=== PATIENT | female | born 1970 | race American Indian/Alaskan Native ===

== ENCOUNTER 2018-04-14 15:41 | Inpatient (IN) | payer MEDICARE, OTHER ==
[2018-04-14 15:46] VITALS: BMI 38.0
[2018-04-14] MEDS ORDERED: Iodixanol 320 mg/ml 150 ml Bottle IV ONE (15:53)
[2018-04-14] MEDS ORDERED: Sodium Chloride 0.9% 1,000 ML IV SCH (16:00)
[2018-04-14 16:18] LABS: BASO # 0.02 K/mm3 (0.0-2.0); BASO % 0.2 % (0.0-3.0); EOS % 0.4 % (1.5-5.0); GRAN # 7.08 (1.4-6.5); GRAN % 79.4 % (50.0-68.0); HEMOGLOBIN 10.9 g/dL (12.0-16.0); LYMPH # 1.6 (1.2-3.4); LYMPH % 17.4 % (22.0-35.0); MEAN CORPUSCULAR HEMOGLOBIN 26.6 pg (25.0-35.0); MEAN CORPUSCULAR HGB CONC 32.8 g/dl (31.0-37.0); MEAN PLATELET VOLUME 11.2 fl (7.0-11.0); MONO # 0.2 (0.1-0.6); MONO % 2.6 % (1.0-6.0); RBC 4.1 10^6/uL (3.5-6.1); RED CELL DISTRIBUTION WIDTH 15.1 % (11.5-14.5); WHITE BLOOD COUNT 8.9 10^3/uL (4.5-11.0)
[2018-04-14 16:20] LABS: INR 0.96; PARTIAL THROMBOPLASTIN TIME 29.8 Seconds (25.1-36.5); PROTHROMBIN TIME 10.9 SECONDS (9.4-12.5)
[2018-04-14 16:33] LABS: LDL CHOLESTEROL 147 mg/dL (0-129); TROPONIN I < 0.01 ng/mL
--- NOTE | 2018-04-14 16:34 | CT ---
Date of service: 04/14/2018 PROCEDURE: CT HEAD WITHOUT CONTRAST. HISTORY: Code Stroke COMPARISON: None available. TECHNIQUE: Axial computed tomography images were obtained through the head/brain without intravenous contrast. Radiation dose: Total exam DLP = 758.33 mGy-cm. This CT exam was performed using one or more of the following dose reduction techniques: Automated exposure control, adjustment of the mA and/or kV according to patient size, and/or use of iterative reconstruction technique. FINDINGS: HEMORRHAGE: No intracranial hemorrhage. BRAIN: No mass effect or edema. No atrophy or chronic microvascular ischemic changes. VENTRICLES: Unremarkable. No hydrocephalus. CALVARIUM: Unremarkable. PARANASAL SINUSES: Unremarkable as visualized. No significant inflammatory changes. MASTOID AIR CELLS: Unremarkable as visualized. No inflammatory changes. OTHER FINDINGS: Calcification and atrophy of the right globe IMPRESSION: No acute intracranial findings
[2018-04-14 16:44] LABS: ALB/GLOB RATIO 1.1 (1.1-1.8); ALBUMIN 4.2 g/dL (3.0-4.8); ALT/SGPT 19 U/L (7-56); AST/SGOT 20 U/L (14-36); BLOOD UREA NITROGEN 25 mg/dL (7-21); CALCIUM 9.8 mg/dL (8.4-10.5); GFR NON-AFRICAN AMERICAN 26; HDL CHOLESTEROL 36 mg/dL (29-60)
--- NOTE | 2018-04-14 16:45 | RAD ---
Date of service: 04/14/2018 HISTORY: Code Stroke COMPARISON: No prior. FINDINGS: LUNGS: There is a soft tissue density along the right side of the mediastinum. This is suspicious for underlying adenopathy or pulmonary mass. CT is suggested for further evaluation PLEURA: No significant pleural effusion identified, no pneumothorax apparent. CARDIOVASCULAR: No aortic atherosclerotic calcification present. Normal cardiac size. No pulmonary vascular congestion. OSSEOUS STRUCTURES: No significant abnormalities. VISUALIZED UPPER ABDOMEN: Normal. OTHER FINDINGS: None. IMPRESSION: Mass along the right side of the mediastinum.
[2018-04-14 17:18] LABS: VENOUS BLOOD GAS BASE EXCESS -10.4 mmol/L (0.0-2.0); VENOUS BLOOD GAS PO2 106 mm/Hg (30-55); VENOUS BLOOD PH 7.19 (7.32-7.43)
--- NOTE | 2018-04-14 17:51 | ED PDOC ---
Arrival/HPI - General Chief Complaint: Weakness/Neurological Deficit Time Seen by Provider: 04/14/18 15:46 Historian: Patient - Critical Care Critical Care Minutes: 60 minutes - History of Present Illness Narrative History of Present Illness (Text): 04/14/18 15:46 47 year old female, with past medical history of TIA and diabetes, presents to the Emergency department accompanied by for evaluation of a transient episode of slurred speech and right fist being clenched prior to arrival. Patient states the episode lasted for a few minutes and spontaneously resolved. Upon arrival to the ED, patient reports resolved symptoms but requests to be medically evaluated secondary to history of TIA. Patient denies any other associated somatic complaints. Patient denies any fevers, chills, headache, dizziness, chest pain, shortness of breath, dyspnea on exertion, cough, abdominal pain, nausea, vomiting, diarrhea, back pain, neck pain, or any other complaints. Patient reports non-compliance with her insulin secondary to financial issues. 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) - Renal Hx Renal Disorder: Yes Other/Comment: Renal transplant - Endocrine/Metabolic Hx Diabetes Mellitus Type 2: Yes - Psychiatric Hx Substance Use: No - Surgical History Hx Kidney Transplant: Yes (R side) - Anesthesia Hx Anesthesia: Yes Hx Anesthesia Reactions: No Hx Malignant Hyperthermia: No Family/Social History - Physician Review Nursing Documentation Reviewed: Yes Family/Social History: Unknown Family HX Smoking Status: Never Smoked Hx Alcohol Use: No Hx Substance Use: No Allergies/Home Meds Allergies/Adverse Reactions: Allergies latex Allergy (Verified 04/14/18 15:45) RASH Review of Systems - Physician Review All systems were reviewed & negative as marked: Yes - Review of Systems Constitutional: absent: Fevers Respiratory: absent: SOB, Cough Cardiovascular: absent: Chest Pain Gastrointestinal: absent: Abdominal Pain, Diarrhea, Nausea, Vomiting Genitourinary Female: absent: Dysuria, Urine Output Changes Musculoskeletal: absent: Back Pain, Neck Pain Skin: absent: Rash Neurological: absent: Headache, Dizziness Physical Exam Vital Signs Reviewed: Yes Vital Signs Temp Pulse Resp BP Pulse Ox 04/14/18 15:45 98.8 F 101 H 18 157/84 H 98 Temperature: Afebrile Blood Pressure: Hypertensive Pulse: Regular Respiratory Rate: Normal Appearance: Positive for: Well-Appearing, Non-Toxic, Comfortable Pain Distress: None Mental Status: Positive for: Alert and Oriented X 3 - Systems Exam Head: Present: Atraumatic, Normocephalic Pupils: Present: Other (Right eye opaque) Extroacular Muscles: Present: EOMI Conjunctiva: Present: Normal Mouth: Present: Moist Mucous Membranes Neck: Present: Normal Range of Motion Respiratory/Chest: Present: Clear to Auscultation, Good Air Exchange. No: Respiratory Distress, Accessory Muscle Use Cardiovascular: Present: Regular Rate and Rhythm, Normal S1, S2. No: Murmurs Abdomen: No: Tenderness, Distention, Peritoneal Signs Back: Present: Normal Inspection Upper Extremity: Present: Normal Inspection. No: Cyanosis, Edema Lower Extremity: Present: Normal Inspection. No: Edema Neurological: Present: GCS=15, CN II-XII Intact, Speech Normal, Motor Func Grossly Intact, Normal Sensory Function Skin: Present: Warm, Dry, Normal Color. No: Rashes Psychiatric: Present: Alert, Oriented x 3, Normal Insight, Normal Concentration Medical Decision Making ED Course and Treatment: 04/14/18 15:46 Impression: 47 year old female presents to the Emergency department complaining of slurred speech. Plan: -- Type and Screen -- VBG -- CT Chest -- CT of Head -- EKG -- Labs -- Chest X-ray -- IV Fluids -- Reassess and disposition Prior Visits: Notes and results from previous visits were reviewed. Progress Notes: 04/14/18 15:44 CODE STROKE ACTIVATED. 04/14/18 15:55 CT of head reviewed by radiologist, shows: No acute intracranial findings. Chest X-ray reviewed by radiologist, shows: Mass along the right side of the mediastinum. 04/14/18 15:55 Due to well low NIH score and history of renal transplant, CTA was not held. Pat ient was found to be in DKA. Patient accepted to ICU. Spoke to Dr. Jeffery, who requests MRI in morning, and believes patient is not a tPA candidate. - Critical Care Critical Care Minutes: 60 minutes - Lab Interpretations Lab Results: 04/14/18 16:01 04/14/18 16:01 Lab Results 04/14/18 16:56: pO2 106 H, VBG pH 7.19 L*, VBG pCO2 46.0, VBG HCO3 17.6 L, VBG Total CO2 19.0 L, VBG O2 Sat (Calc) 98.8 H, VBG Base Excess -10.4 L, VBG Potassium 3.4 L, Glucose 704 H*, Lactate 5.9 H*, FiO2 21.0, Sodium 132.0, Chloride 95.0 L, Venous Blood Potassium 3.4 L 04/14/18 16:01: Sodium 130 L, Potassium 3.3 L, Chloride 94 L, Carbon Dioxide 18 L, Anion Gap 21 H, BUN 25 H, Creatinine 2.0 H, Est GFR ( Amer) 32, Est GFR (Non-Af Amer) 26, Random Glucose 847 H*, Calcium 9.8, Total Bilirubin 0.4, AST 20, ALT 19, Alkaline Phosphatase 182 H, Troponin I < 0.01, Total Protein 8.0, Albumin 4.2, Globulin 3.7, Albumin/Globulin Ratio 1.1, Triglycerides 363 H, Cholesterol 248 H, LDL Cholesterol Direct 147 H, HDL Cholesterol 36, B- Hydroxybutyrate Pending 04/14/18 16:01: PT 10.9, INR 0.96, APTT 29.8 04/14/18 16:01: WBC 8.9, RBC 4.10, Hgb 10.9 L, Hct 33.2 L, MCV 81.0, MCH 26.6, MCHC 32.8, RDW 15.1 H, Plt Count 271, MPV 11.2 H, Gran % 79.4 H, Lymph % (Auto) 17.4 L, [place] % (Auto) 2.6, Eos % (Auto) 0.4 L, Baso % (Auto) 0.2, Gran # 7.08 H, Lymph # (Auto) 1.6, [place] # (Auto) 0.2, Eos # (Auto) 0.0, Baso # (Auto) 0.02 04/14/18 15:46: POC Glucose (mg/dL) > 500 H* - RAD Interpretation Radiology Orders: 04/14/18 15:46 HEAD W/O (CODE STROKE) [CT] Stat CHEST PORTABLE [RAD] Stat 04/14/18 16:47 CHEST W/O CONTRAST [CT] Stat - Medication Orders Current Medication Orders: Sodium Chloride (Sodium Chloride 0.9%) 1,000 mls @ 100 mls/hr IV .Q10H DANTE Last Admin: 04/14/18 16:57 Dose: 100 mls/hr eMAR Start Stop Document 04/14/18 16:57 EQ (Rec: 04/14/18 16:57 EQ [id number]) Intravenous Solution Start Date 04/14/18 Start Time 16:57 NIHSS Scale ([place]) Time Performed: 15:40 - How Severe is the Stoke Baseline Level of Consciousness: 0=Alert LOC to Questions: 0=Both comments correct LOC to commands: 0=Obeys both correctly Best Gaze: 0=Normal Visual: 0=No visual loss Facial: 0=Normal Motor Arm - Left: 0=No drift Motor Arm - Right: 0=No drift Motor Leg - Left: 0=No drift Motor Leg - Right: 0=No drift Limb Ataxia: 0=Absent Sensory: 0=Normal Best Language: 0=No aphasia Dysarthia: 0=Normal articulation Extinction & Inattention (Neglect): 0=Normal, no object Score: 0 Risk Level: No Stroke Risk rTPA Inclusion/Exclusion - Refusal of Treatment Patient Refused Treatment: No - Inclusion Criteria for Altepase Patient is 18 years or Older: Yes The Clinical Diagnosis of Ischemic Stroke That is Causing a Potentially Disabling Neurological Deficit: No Time of Onset is Well Established to be Less Than 270 Minute Before Treatment Would Begin: Yes Risk/Benefit Discussed With Patient/Family Member Present: No - Scribe Statement The provider has reviewed the documentation as recorded by the Scribsamina Horton. All medical record entries made by the Scribe were at my direction and personally dictated by me. I have reviewed the chart and agree that the record accurately reflects my personal performance of the history, physical exam, medical decision making, and the department course for this patient. I have also personally directed, reviewed, and agree with the discharge instructions and disposition. Disposition/Present on Arrival - Present on Arrival Any Indicators Present on Arrival: Yes History of DVT/PE: No History of Uncontrolled Diabetes: No Urinary Catheter: No History of Decub. Ulcer: No History Surgical Site Infection Following: None - Disposition Have Diagnosis and Disposition been Completed?: Yes Diagnosis: DKA (diabetic ketoacidoses), Weakness Disposition: HOSPITALIZED Disposition Time: 17:30 Condition: GUARDED Discharge Instructions (ExitCare): Weakness (ED) Forms: [employer] [facility] (Cro[place]ian)
[2018-04-14] MEDS ORDERED: Lactated Ringer's 1,000 ML IV SCH (18:00)
[2018-04-14] MEDS ORDERED: Insulin Regular 100 UNITS in Sodium Chloride 0.9% 99 ML IV PRN ×2 (18:03→18:15)
[2018-04-14] MEDS ORDERED: Sodium Chloride 0.9% 1,000 ML IV STA (18:15)
--- NOTE | 2018-04-14 18:35 | CARD ---
APPROVED REPORT Date of service: 04/14/2018 EKG Measurement Heart [id number] <Conclusion> Normal sinus rhythm Left ventricular hypertrophy Abnormal ECG
[2018-04-14] MEDS: Lactated Ringer's 1,000 ML IV SCH (19:01)
[2018-04-14 19:40] LABS: URINE APPEARANCE CLEAR (CLEAR); URINE BILIRUBIN NEGATIVE (NEGATIVE); URINE BLOOD SMALL (NEGATIVE); URINE COLOR LIGHT YELLOW (YELLOW); URINE GLUCOSE (UA) >=1000 mg/dL (NEGATIVE); URINE LEUKOCYTE ESTERASE TRACE Leu/uL (NEGATIVE); URINE PROTEIN 100 mg/dL (<30 mg/dL); URINE UROBILINOGEN 0.2 E.U./dL (<1 E.U./dL)
[2018-04-14 19:41] LABS: CALCIUM 9.8 mg/dL (8.4-10.5)
[2018-04-14 19:51] LABS: URINE BACTERIA TRACE (NEG); URINE RBC 0 - 2 /hpf (0-2)
--- NOTE | 2018-04-14 21:36 | CP.PCM.HP ---
<Augustine Nagel - Last Filed: 04/15/18 06:00> History of Present Illness - History of Present Illness History of Present Illness: History and Physical for hospitalist attending Dr. Elza Nagel PGY2 Chief Complaint: Slurred speech HPI: Patient is a 47 year old female with a past medical history of right kidney transplant, transient ischemic attack, IDDM (diagnosed in [facility]), diabetic retinopathy, dyslipidemia, hypertension, asthma who initially presented with complaints of slurred speech which occurred right before coming to the emergency department. Patient states she woke up feeling fine however had several tasks through the day which caused her to not eat much. States that through the day she was feeling very thirsty and kept drinking water. Around 3 p.m. as per patient, she was speaking to her and noticed she was experiencing difficulties forming her words. With her previous history of TIA patient was nervous and wanted to be evaluated prompting her to come to the ED. Patient was found to be in DKA. She denies any recent infection however states that she has not been able to use her insulin in the past week due to financial issues and not being able to afford it. Upon evaluating patient in the Ed all symptoms have resolved, patient is alert awake full of energy and asking for food. Patient denies current infection, fevers, chills, cough, abdominal pain, nausea, vomiting, diarrhea, chest pain, shortness of breath, dysuria. Labs: WBC 8.9, H/H 10.9/33.2, MCV 81, RDW 15.1, Gran% 79.4, INR 0.96, Initial anion gap: 18, Potassium 3.3, random glucose 847, troponin <0.01, creatinine 2.0 (patient's baseline as per patient is 1.8-2.0) VBG: pH 7.19 UA: trace leukocyte esterase, WBC 2-5 CT head: no abnormalities Chest X-ray: mass along right side of mediastinum. EKG: NSR, LVH PMD: Dr. Borden ([place], [place]) Benefit Authorizer: Ellie Stephen Glove Turner And Former: Dr. Bobby [facility] (all in [place], [place] patient goes to various pharmacies with [facility] whichever is cheaper) Family Hx: Significant for DM Surgical Hx: Right kidney transplant in 2008, 7 eye surgeries, Port and fistula for dialysis patient had for 10 months prior to transplant, myomectomy, lumpectomy (benign mass removed from left breast) Social History: 3 year history of cigarette smoking, started in 1998, quit in 2001. Denies alcohol or drug use. Present on Admission - Present on Admission Any Indicators Present on Admission: No Review of Systems - Constitutional Constitutional: absent: Anorexia, Chills, Fever, Lethargy - EENT Ears: absent: Dizziness Nose/Mouth/Throat: absent: Sore Throat - Cardiovascular Cardiovascular: absent: Chest Pain, Dyspnea - Respiratory Respiratory: absent: Cough - Gastrointestinal Gastrointestinal: absent: Diarrhea, Nausea, Vomiting - Genitourinary Genitourinary: absent: Dysuria - Neurological Neurological: absent: Dizziness, Numbness - Endocrine Endocrine: absent: Fatigue Past Patient History - Infectious Disease Hx of Infectious Diseases: None - Past Social History Smoking Status: Never Smoked - PULMONARY Hx Asthma: Yes - NEUROLOGICAL Hx Transient Ischemic Attacks (TIA): Yes - HEENT Hx Blind: Yes (R eye legalky blind) - RENAL Hx Chronic Kidney Disease: Yes Other/Comment: Renal transplant - ENDOCRINE/METABOLIC Hx Diabetes Mellitus Type 2: Yes - PSYCHIATRIC Hx Substance Use: No - SURGICAL HISTORY Hx Kidney Transplant: Yes (R side) - ANESTHESIA Hx Anesthesia: Yes Hx Anesthesia Reactions: No Hx Malignant Hyperthermia: No Meds Allergies/Adverse Reactions: Allergies Allergy/AdvReac Type Severity Reaction Status Date / Time latex Allergy RASH Verified 04/14/18 15:45 Physical Exam - Constitutional Appears: Non-toxic, No Acute Distress - Head Exam Head Exam: ATRAUMATIC, NORMAL INSPECTION, NORMOCEPHALIC - Eye Exam Eye Exam: absent: Normal appearance (right eye) - ENT Exam ENT Exam: Mucous Membranes Dry - Respiratory Exam Respiratory Exam: Clear to Auscultation Bilateral, NORMAL BREATHING PATTERN. absent: Rhonchi, Wheezes - Cardiovascular Exam Cardiovascular Exam: REGULAR RHYTHM, +S1, +S2 - GI/Abdominal Exam GI & Abdominal Exam: Normal Bowel Sounds, Soft. absent: Tenderness Additional comments: surgical scar from kidney transplant - Extremities Exam Extremities exam: Positive for: pedal edema (trace) - Back Exam Back exam: NORMAL INSPECTION - Neurological Exam Neurological exam: Alert, CN II-XII Intact, Oriented x3 - Psychiatric Exam Psychiatric exam: Normal Affect, Normal Mood - Skin Skin Exam: Normal Color, Warm Results - Vital Signs Recent Vital Signs: Last Vital Signs Temp 98.8 F 04/14/18 15:45 Pulse 101 H 04/14/18 15:45 Resp 18 04/14/18 15:45 BP 157/84 H 04/14/18 15:45 Pulse Ox 98 04/14/18 15:45 - Labs Result Diagrams: 04/14/18 16:01 04/15/18 02:07 Labs: Laboratory Results - last 24 hr 04/14/18 04/14/18 04/14/18 15:46 16:01 16:01 WBC 8.9 RBC 4.10 Hgb 10.9 L Hct 33.2 L MCV 81.0 MCH 26.6 MCHC 32.8 RDW 15.1 H Plt Count 271 MPV 11.2 H Gran % 79.4 H Lymph % (Auto) 17.4 L Gray % (Auto) 2.6 Eos % (Auto) 0.4 L Baso % (Auto) 0.2 Gran # 7.08 H Lymph # (Auto) 1.6 Gray # (Auto) 0.2 Eos # (Auto) 0.0 Baso # (Auto) 0.02 PT 10.9 INR 0.96 APTT 29.8 pO2 VBG pH VBG pCO2 VBG HCO3 VBG Total CO2 VBG O2 Sat (Calc) VBG Base Excess VBG Potassium Glucose Lactate FiO2 Sodium Potassium Chloride Carbon Dioxide Anion Gap BUN Creatinine Est GFR ( Amer) Est GFR (Non-Af Amer) POC Glucose (mg/dL) > 500 H* Random Glucose Calcium Phosphorus Magnesium Total Bilirubin AST ALT Alkaline Phosphatase Troponin I Total Protein Albumin Globulin Albumin/Globulin Ratio Triglycerides Cholesterol LDL Cholesterol Direct HDL Cholesterol Venous Blood Potassium Urine Color Urine Appearance Urine pH Ur Specific Jackman Urine Protein Urine Glucose (UA) Urine Ketones Urine Blood Urine Nitrate Urine Bilirubin Urine Urobilinogen Ur Leukocyte Esterase Urine RBC Urine WBC Ur Epithelial Cells Urine Bacteria 04/14/18 04/14/18 04/14/18 16:01 16:56 18:27 WBC RBC Hgb Hct MCV MCH MCHC RDW Plt Count MPV Gran % Lymph % (Auto) Gray % (Auto) Eos % (Auto) Baso % (Auto) Gran # Lymph # (Auto) Gray # (Auto) Eos # (Auto) Baso # (Auto) PT INR APTT pO2 106 H VBG pH 7.19 L* VBG pCO2 46.0 VBG HCO3 17.6 L VBG Total CO2 19.0 L VBG O2 Sat (Calc) 98.8 H VBG Base Excess -10.4 L VBG Potassium 3.4 L Glucose 704 H* Lactate 5.9 H* FiO2 21.0 Sodium 130 L 132.0 Potassium 3.3 L Chloride 94 L 95.0 L Carbon Dioxide 18 L Anion Gap 21 H BUN 25 H Creatinine 2.0 H Est GFR ( Amer) 32 Est GFR (Non-Af Amer) 26 POC Glucose (mg/dL) Random Glucose 847 H* Calcium 9.8 Phosphorus Magnesium Total Bilirubin 0.4 AST 20 ALT 19 Alkaline Phosphatase 182 H Troponin I < 0.01 Total Protein 8.0 Albumin 4.2 Globulin 3.7 Albumin/Globulin Ratio 1.1 Triglycerides 363 H Cholesterol 248 H LDL Cholesterol Direct 147 H HDL Cholesterol 36 Venous Blood Potassium 3.4 L Urine Color Light yellow Urine Appearance Clear Urine pH 6.0 Ur Specific Jackman 1.010 Urine Protein 100 H Urine Glucose (UA) >=1000 Urine Ketones Negative Urine Blood Small H Urine Nitrate Negative Urine Bilirubin Negative Urine Urobilinogen 0.2 Ur Leukocyte Esterase Trace H Urine RBC 0 - 2 Urine WBC 2 - 5 Ur Epithelial Cells None Urine Bacteria Trace 04/14/18 04/14/18 18:51 19:22 WBC RBC Hgb Hct MCV MCH MCHC RDW Plt Count MPV Gran % Lymph % (Auto) Gray % (Auto) Eos % (Auto) Baso % (Auto) Gran # Lymph # (Auto) Gray # (Auto) Eos # (Auto) Baso # (Auto) PT INR APTT pO2 VBG pH VBG pCO2 VBG HCO3 VBG Total CO2 VBG O2 Sat (Calc) VBG Base Excess VBG Potassium Glucose Lactate FiO2 Sodium 136 Potassium 3.7 Chloride 103 Carbon Dioxide 21 Anion Gap 16 BUN 24 H Creatinine 1.9 H Est GFR ( Amer) 34 Est GFR (Non-Af Amer) 28 POC Glucose (mg/dL) 299 H Random Glucose 300 H Calcium 9.8 Phosphorus 2.8 Magnesium 1.9 Total Bilirubin AST ALT Alkaline Phosphatase Troponin I Total Protein Albumin Globulin Albumin/Globulin Ratio Triglycerides Cholesterol LDL Cholesterol Direct HDL Cholesterol Venous Blood Potassium Urine Color Urine Appearance Urine pH Ur Specific Jackman Urine Protein Urine Glucose (UA) Urine Ketones Urine Blood Urine Nitrate Urine Bilirubin Urine Urobilinogen Ur Leukocyte Esterase Urine RBC Urine WBC Ur Epithelial Cells Urine Bacteria Assessment & Plan - Assessment and Plan (Free Text) Assessment: Patient is a 47 year old female with a past medical history of right kidney transplant, transient ischemic attack, IDDM, diabetic retinopathy, dyslipidemia, hypertension, asthma who initially presented with complaints of slurred speech found to be in DKA. Plan: DKA -Patient received 4 L fluids -Insulin drip -Potassium chloride 20 mEQ -I&O -Anion gap now closed at 12; will start patient on ISS-medium and Renal low carb diet -Patient's home insulin regimen: Lantus 70 U daily, Novolog 40 units AC -Finger sticks q4h -Repeat ABG -HgA1C -family life educator Anemia -Peripheral smear -Iron&TIBC, ferritin, retic count -Folate, B12 CKD -Nephrology on consult -Cr is baseline -I&O History of Asthma -Duonebs PRN History of R kidney transplant -Continue tacrolimus and mycophenolate History of Hypertension -Continue losartan 100 mg, norvasc 5 mg, coreg 20 mg History of Dyslipidemia -Get repeat fasting lipid panel in morning -Continue statin Case discussed and reviewed with Dr. Bertrand DVT/GI ppx: Lovenox/Protonix <Andrea Bertrand - Last Filed: 04/15/18 06:37> Results - Vital Signs Recent Vital Signs: Last Vital Signs Temp 98.6 F 04/14/18 20:00 Pulse 75 04/15/18 06:00 Resp 25 H 04/15/18 04:00 BP 157/75 H 04/15/18 04:00 Pulse Ox 93 L 04/15/18 04:00 - Labs Result Diagrams: 04/14/18 16:01 04/15/18 02:07 Labs: Laboratory Results - last 24 hr 04/14/18 04/14/18 04/14/18 15:46 16:01 16:01 WBC 8.9 RBC 4.10 Hgb 10.9 L Hct 33.2 L MCV 81.0 MCH 26.6 MCHC 32.8 RDW 15.1 H Plt Count 271 MPV 11.2 H Gran % 79.4 H Lymph % (Auto) 17.4 L Gray % (Auto) 2.6 Eos % (Auto) 0.4 L Baso % (Auto) 0.2 Gran # 7.08 H Lymph # (Auto) 1.6 Gray # (Auto) 0.2 Eos # (Auto) 0.0 Baso # (Auto) 0.02 Retic Count PT 10.9 INR 0.96 APTT 29.8 pCO2 pO2 HCO3 ABG pH ABG Total CO2 ABG O2 Saturation ABG O2 Content ABG Base Excess ABG Hemoglobin ABG Carboxyhemoglobin POC ABG HHb (Measured) ABG Methemoglobin ABG O2 Capacity VBG pH VBG pCO2 VBG HCO3 VBG Total CO2 VBG O2 Sat (Calc) VBG Base Excess VBG Potassium Hgb O2 Saturation Glucose Lactate FiO2 Sodium Potassium Chloride Carbon Dioxide Anion Gap BUN Creatinine Est GFR ( Amer) Est GFR (Non-Af Amer) POC Glucose (mg/dL) > 500 H* Random Glucose Calcium Phosphorus Magnesium Iron TIBC % Saturation Total Bilirubin AST ALT Alkaline Phosphatase Troponin I Total Protein Albumin Globulin Albumin/Globulin Ratio Triglycerides Cholesterol LDL Cholesterol Direct HDL Cholesterol Venous Blood Potassium Urine Color Urine Appearance Urine pH Ur Specific Jackman Urine Protein Urine Glucose (UA) Urine Ketones Urine Blood Urine Nitrate Urine Bilirubin Urine Urobilinogen Ur Leukocyte Esterase Urine RBC Urine WBC Ur Epithelial Cells Urine Bacteria 04/14/18 04/14/18 04/14/18 16:01 16:56 18:27 WBC RBC Hgb Hct MCV MCH MCHC RDW Plt Count MPV Gran % Lymph % (Auto) Gray % (Auto) Eos % (Auto) Baso % (Auto) Gran # Lymph # (Auto) Gray # (Auto) Eos # (Auto) Baso # (Auto) Retic Count PT INR APTT pCO2 pO2 106 H HCO3 ABG pH ABG Total CO2 ABG O2 Saturation ABG O2 Content ABG Base Excess ABG Hemoglobin ABG Carboxyhemoglobin POC ABG HHb (Measured) ABG Methemoglobin ABG O2 Capacity VBG pH 7.19 L* VBG pCO2 46.0 VBG HCO3 17.6 L VBG Total CO2 19.0 L VBG O2 Sat (Calc) 98.8 H VBG Base Excess -10.4 L VBG Potassium 3.4 L Hgb O2 Saturation Glucose 704 H* Lactate 5.9 H* FiO2 21.0 Sodium 130 L 132.0 Potassium 3.3 L Chloride 94 L 95.0 L Carbon Dioxide 18 L Anion Gap 21 H BUN 25 H Creatinine 2.0 H Est GFR ( Amer) 32 Est GFR (Non-Af Amer) 26 POC Glucose (mg/dL) Random Glucose 847 H* Calcium 9.8 Phosphorus Magnesium Iron TIBC % Saturation Total Bilirubin 0.4 AST 20 ALT 19 Alkaline Phosphatase 182 H Troponin I < 0.01 Total Protein 8.0 Albumin 4.2 Globulin 3.7 Albumin/Globulin Ratio 1.1 Triglycerides 363 H Cholesterol 248 H LDL Cholesterol Direct 147 H HDL Cholesterol 36 Venous Blood Potassium 3.4 L Urine Color Light yellow Urine Appearance Clear Urine pH 6.0 Ur Specific Jackman 1.010 Urine Protein 100 H Urine Glucose (UA) >=1000 Urine Ketones Negative Urine Blood Small H Urine Nitrate Negative Urine Bilirubin Negative Urine Urobilinogen 0.2 Ur Leukocyte Esterase Trace H Urine RBC 0 - 2 Urine WBC 2 - 5 Ur Epithelial Cells None Urine Bacteria Trace 04/14/18 04/14/18 04/14/18 18:51 19:22 20:28 WBC RBC Hgb Hct MCV MCH MCHC RDW Plt Count MPV Gran % Lymph % (Auto) Gray % (Auto) Eos % (Auto) Baso % (Auto) Gran # Lymph # (Auto) Gray # (Auto) Eos # (Auto) Baso # (Auto) Retic Count PT INR APTT pCO2 pO2 HCO3 ABG pH ABG Total CO2 ABG O2 Saturation ABG O2 Content ABG Base Excess ABG Hemoglobin ABG Carboxyhemoglobin POC ABG HHb (Measured) ABG Methemoglobin ABG O2 Capacity VBG pH VBG pCO2 VBG HCO3 VBG Total CO2 VBG O2 Sat (Calc) VBG Base Excess VBG Potassium Hgb O2 Saturation Glucose Lactate FiO2 Sodium 136 Potassium 3.7 Chloride 103 Carbon Dioxide 21 Anion Gap 16 BUN 24 H Creatinine 1.9 H Est GFR ( Amer) 34 Est GFR (Non-Af Amer) 28 POC Glucose (mg/dL) 299 H 215 H Random Glucose 300 H Calcium 9.8 Phosphorus 2.8 Magnesium 1.9 Iron TIBC % Saturation Total Bilirubin AST ALT Alkaline Phosphatase Troponin I Total Protein Albumin Globulin Albumin/Globulin Ratio Triglycerides Cholesterol LDL Cholesterol Direct HDL Cholesterol Venous Blood Potassium Urine Color Urine Appearance Urine pH Ur Specific Jackman Urine Protein Urine Glucose (UA) Urine Ketones Urine Blood Urine Nitrate Urine Bilirubin Urine Urobilinogen Ur Leukocyte Esterase Urine RBC Urine WBC Ur Epithelial Cells Urine Bacteria 1104/14/18 04/14/18 21:56 22:10 22:10 WBC RBC Hgb Hct MCV MCH MCHC RDW Plt Count MPV Gran % Lymph % (Auto) Gray % (Auto) Eos % (Auto) Baso % (Auto) Gran # Lymph # (Auto) Gray # (Auto) Eos # (Auto) Baso # (Auto) Retic Count PT INR APTT pCO2 pO2 33 HCO3 ABG pH ABG Total CO2 ABG O2 Saturation ABG O2 Content ABG Base Excess ABG Hemoglobin ABG Carboxyhemoglobin POC ABG HHb (Measured) ABG Methemoglobin ABG O2 Capacity VBG pH 7.34 VBG pCO2 37.0 L VBG HCO3 20.0 L VBG Total CO2 21.1 L VBG O2 Sat (Calc) 72.8 H VBG Base Excess -5.2 L VBG Potassium 4.0 Hgb O2 Saturation Glucose 261 H Lactate 3.7 H FiO2 21.0 Sodium 136.0 133 Potassium 4.9 Chloride 104.0 106 Carbon Dioxide 19 L Anion Gap 13 BUN 19 Creatinine 1.5 H Est GFR ( Amer) 45 Est GFR (Non-Af Amer) 37 POC Glucose (mg/dL) Random Glucose 221 H Calcium 8.7 Phosphorus Magnesium Iron 69 TIBC 208 L % Saturation 33 Total Bilirubin AST ALT Alkaline Phosphatase Troponin I < 0.01 Total Protein Albumin Globulin Albumin/Globulin Ratio Triglycerides Cholesterol LDL Cholesterol Direct HDL Cholesterol Venous Blood Potassium 4.0 Urine Color Urine Appearance Urine pH Ur Specific Jackman Urine Protein Urine Glucose (UA) Urine Ketones Urine Blood Urine Nitrate Urine Bilirubin Urine Urobilinogen Ur Leukocyte Esterase Urine RBC Urine WBC Ur Epithelial Cells Urine Bacteria 04/14/18 04/15/18 04/15/18 22:10 00:16 01:35 WBC RBC Hgb Hct MCV MCH MCHC RDW Plt Count MPV Gran % Lymph % (Auto) Gray % (Auto) Eos % (Auto) Baso % (Auto) Gran # Lymph # (Auto) Gray # (Auto) Eos # (Auto) Baso # (Auto) Retic Count 1.87 H PT INR APTT pCO2 33 L pO2 87.0 HCO3 19.1 L ABG pH 7.37 ABG Total CO2 20.1 L ABG O2 Saturation 99.3 H ABG O2 Content 12.8 L ABG Base Excess -5.5 L ABG Hemoglobin 9.4 L ABG Carboxyhemoglobin 2.2 H POC ABG HHb (Measured) 0.7 ABG Methemoglobin 1.2 ABG O2 Capacity 12.9 L VBG pH VBG pCO2 VBG HCO3 VBG Total CO2 VBG O2 Sat (Calc) VBG Base Excess VBG Potassium Hgb O2 Saturation 95.9 Glucose Lactate FiO2 21.0 Sodium Potassium Chloride Carbon Dioxide Anion Gap BUN Creatinine Est GFR ( Amer) Est GFR (Non-Af Amer) POC Glucose (mg/dL) 359 H Random Glucose Calcium Phosphorus Magnesium Iron TIBC % Saturation Total Bilirubin AST ALT Alkaline Phosphatase Troponin I Total Protein Albumin Globulin Albumin/Globulin Ratio Triglycerides Cholesterol LDL Cholesterol Direct HDL Cholesterol Venous Blood Potassium Urine Color Urine Appearance Urine pH Ur Specific Jackman Urine Protein Urine Glucose (UA) Urine Ketones Urine Blood Urine Nitrate Urine Bilirubin Urine Urobilinogen Ur Leukocyte Esterase Urine RBC Urine WBC Ur Epithelial Cells Urine Bacteria 04/15/18 04/15/18 04/15/18 02:07 02:07 04:07 WBC RBC Hgb Hct MCV MCH MCHC RDW Plt Count MPV Gran % Lymph % (Auto) Gray % (Auto) Eos % (Auto) Baso % (Auto) Gran # Lymph # (Auto) Gray # (Auto) Eos # (Auto) Baso # (Auto) Retic Count PT INR APTT pCO2 pO2 89 H HCO3 ABG pH ABG Total CO2 ABG O2 Saturation ABG O2 Content ABG Base Excess ABG Hemoglobin ABG Carboxyhemoglobin POC ABG HHb (Measured) ABG Methemoglobin ABG O2 Capacity VBG pH 7.32 VBG pCO2 35.0 L VBG HCO3 18.0 L VBG Total CO2 19.1 L VBG O2 Sat (Calc) 99.0 H VBG Base Excess -7.3 L VBG Potassium 3.9 Hgb O2 Saturation Glucose 399 H Lactate 2.9 H FiO2 21.0 Sodium 133 134.0 Potassium 4.0 Chloride 108 H 105.0 Carbon Dioxide 17 L Anion Gap 12 BUN 19 Creatinine 1.5 H Est GFR ( Amer) 45 Est GFR (Non-Af Amer) 37 POC Glucose (mg/dL) 335 H Random Glucose 343 H* D Calcium 8.4 Phosphorus Magnesium Iron TIBC % Saturation Total Bilirubin AST ALT Alkaline Phosphatase Troponin I Total Protein Albumin Globulin Albumin/Globulin Ratio Triglycerides Cholesterol LDL Cholesterol Direct HDL Cholesterol Venous Blood Potassium 3.9 Urine Color Urine Appearance Urine pH Ur Specific Jackman Urine Protein Urine Glucose (UA) Urine Ketones Urine Blood Urine Nitrate Urine Bilirubin Urine Urobilinogen Ur Leukocyte Esterase Urine RBC Urine WBC Ur Epithelial Cells Urine Bacteria Attending/Attestation - Attestation I have personally seen and examined this patient.: Yes I have fully participated in the care of the patient.: Yes I have reviewed all pertinent clinical information: Yes
[2018-04-14] MEDS ORDERED: Insulin Reg-MEDIUM-Coverage SC SCH (22:00)
[2018-04-14 22:17] LABS: VENOUS BLOOD GAS BASE EXCESS -5.2 mmol/L (0.0-2.0); VENOUS BLOOD GAS PO2 33 mm/Hg (30-55); VENOUS BLOOD PH 7.34 (7.32-7.43)
[2018-04-14 22:39] LABS: TROPONIN I < 0.01 ng/mL
[2018-04-14 22:41] LABS: BLOOD UREA NITROGEN 19 mg/dL (7-21); CALCIUM 8.7 mg/dL (8.4-10.5); GFR NON-AFRICAN AMERICAN 37
[2018-04-14 22:52] LABS: IRON 69 ug/dL (45-180)
[2018-04-14 23:01] LABS: % IRON SATURATION 33 % (20-55); TOTAL IRON BINDING CAPACITY 208 ug/dL (265-497)
[2018-04-15] MEDS: Insulin Reg-MEDIUM-Coverage SC SCH ×3 (00:54→08:08)
[2018-04-15] MEDS: Lactated Ringer's 1,000 ML IV SCH ×4 (00:55→17:10)
--- NOTE | 2018-04-15 01:22 | CON ---
DATE OF CONSULTATION: 04/14/2018 HISTORY OF PRESENT ILLNESS: This is a 47-year-old lady with a history of renal transplant 10 years ago from relative (brother), who has been managed by Nephrology Service at [facility] (Dr. Stephen and Dr. Sherman), who however recently moved to [place] and switched her primary medical doctor as well. However, as Nephrology Service is affiliated with [facility] as well, the Nephrology Service continued to follow her as well. The patient presented to [facility] ER with an episode of slurred speech and right face being clenched prior to arrival. Upon further workup in the ER, she was found to have highly elevated glucose, severe metabolic acidosis and anion gap present. Diagnosis of DKA was made and ICU was called for further management and monitoring. The patient denies any other associated somatic complaints. She denies fevers, chills, headache, dizziness, chest pain, shortness of breath, dyspnea on exertion, cough, abdominal pain, nausea, vomiting, diarrhea, back pain, neck pain or other complaints. PAST MEDICAL HISTORY: Diabetes, TIA, status post renal transplant. FAMILY HISTORY: Noncontributory. SOCIAL HISTORY: No alcohol or illicit drug abuse. No tobacco smoking. REVIEW OF SYSTEMS: Review of 12-organ system other than mentioned in the history of present illness is negative. MEDICATIONS AT HOME: Not available at present time. Dr. Stephen was called and we will adjust or start her immunosuppressant. PHYSICAL EXAMINATION: VITAL SIGNS: Blood pressure 157/84, heart rate 101, temperature 98.8, oxygen saturation 98% on room air, and respiratory rate 18. ENT: Head and neck atraumatic. LUNGS: Clear to auscultation bilaterally. HEART: Regular rate and rhythm. S1 and S2 normal. ABDOMEN: Soft, nontender, nondistended. MUSCULOSKELETAL: No C/C/E. NEURO: The patient moves all extremities spontaneously. SKIN: Moist. PSYCH: The patient is alert, awake and oriented x3. Not in respiratory or otherwise distress. LABORATORY DATA: WBC 8.9, hemoglobin 10.9, platelet count 271. Sodium 130, potassium 3.3 (supplemented), chloride 94, carbon dioxide 18, BUN 25, creatinine 2 (discussed with Dr. Stephen who said that this level is baseline for her), glucose 847. AST 20, ALT 19, total bilirubin 0.4. Triglycerides 163, cholesterol 248, LDL cholesterol 147. ABG showed pH 7.19. Lactic acid 5.9. INR 0.96. Chest x-ray showed mass along the right side of the mediastinum. CAT scan was ordered. ASSESSMENT AND PLAN: This is a 47-year-old lady who presented with diabetic ketoacidosis. At present time, we will proceed with fluid resuscitation (balance crystalloid in the form of lactated Ringer), insulin drip, BMP every 4 hours, Accu-Chek every 1 hour. Nephrology Service was called and we will follow the patient as well. Once anion gap closed, we will switch the patient to longer-acting formulation of insulin after ascertaining that the patient is able to take p.o. nutrition and hydration. Once her blood glucose dips down below 250, her IV fluids will be switched to D5 containing solutions. We will continue to maintain euvolemia, glycemia, normothermia and oxygen saturation more than 90%. We will continue with DVT and GI prophylaxis. The patient will be going to ICU for further management and monitoring. Rodriguez Santana MD
[2018-04-15 01:46] LABS: ARTERIAL BLOOD GAS HCO3 19.1 mmol/L (21-28); ARTERIAL BLOOD GAS HEMOGLOBIN 9.4 g/dL (11.7-17.4); ARTERIAL BLOOD GAS O2 CAPACITY 12.9 mL/dl (16-24); ARTERIAL BLOOD GAS O2 CONTENT 12.8 ML/dl (15-23); ARTERIAL BLOOD GAS O2 SAT 99.3 % (95-98); ARTERIAL BLOOD GAS PCO2 33 mm/Hg (35-45); ARTERIAL BLOOD GAS PH 7.37 (7.35-7.45); ARTERIAL BLOOD GAS TCO2 20.1 mmol.L (22-28)
[2018-04-15 02:24] LABS: VENOUS BLOOD GAS BASE EXCESS -7.3 mmol/L (0.0-2.0); VENOUS BLOOD GAS PO2 89 mm/Hg (30-55); VENOUS BLOOD PH 7.32 (7.32-7.43)
[2018-04-15 02:37] LABS: CALCIUM 8.4 mg/dL (8.4-10.5)
[2018-04-15] MEDS ORDERED: Insulin Detemir 100 units/ml Vial (Levemir) SC ONE ×3 (02:58→06:04)
[2018-04-15 07:13] LABS: BASO # 0.02 K/mm3 (0.0-2.0); BASO % 0.2 % (0.0-3.0); EOS # 0.2 (0.0-0.7); EOS % 1.6 % (1.5-5.0); GRAN # 5.59 (1.4-6.5); HEMOGLOBIN 9.8 g/dL (12.0-16.0); LYMPH # 3.2 (1.2-3.4); LYMPH % 34.4 % (22.0-35.0); MEAN CELL VOLUME 79.1 fl (80.0-105.0); MEAN CORPUSCULAR HEMOGLOBIN 26.6 pg (25.0-35.0); MEAN CORPUSCULAR HGB CONC 33.6 g/dl (31.0-37.0); MEAN PLATELET VOLUME 10.3 fl (7.0-11.0); MONO # 0.4 (0.1-0.6); MONO % 3.8 % (1.0-6.0); RBC 3.69 10^6/uL (3.5-6.1); RED CELL DISTRIBUTION WIDTH 15.4 % (11.5-14.5); WHITE BLOOD COUNT 9.3 10^3/uL (4.5-11.0)
--- NOTE | 2018-04-15 07:32 | CP.CCUPN ---
CCU Objective - Vital Signs / Intake & Output Vital Signs (Last 4 hours): Vital Signs Pulse Resp BP Pulse Ox 04/15/18 06:30 86 19 167/88 H 98 04/15/18 06:00 84 17 95 04/15/18 05:00 84 22 149/61 96 04/15/18 04:00 91 H 25 H 157/75 H 93 L 04/15/18 03:33 93 H 30 H 153/68 H 98 Intake and Output (Last 8hrs): Intake & Output 04/14/18 04/15/18 04/15/18 22:59 06:59 14:59 Intake Total 2400 Output Total 500 Balance 1900 Weight 208 lb 213 lb Intake: IV 2200 Right Antecubital 2200 Oral 200 Output: Urine 500 Urine, Voided 500 - Physical Exam Head: Positive for: Atraumatic, Normocephalic Pupils: Positive for: Other (Right eye opaque) Extroacular Muscles: Positive for: EOMI Conjunctiva: Positive for: Normal Mouth: Positive for: Moist Mucous Membranes Neck: Positive for: Normal Range of Motion Respiratory/Chest: Positive for: Clear to Auscultation, Good Air Exchange. Negative for: Respiratory Distress, Accessory Muscle Use Cardiovascular: Positive for: Regular Rate and Rhythm, Normal S1, S2. Negative for: Murmurs Abdomen: Negative for: Tenderness, Distention, Peritoneal Signs Back: Positive for: Normal Inspection Upper Extremity: Positive for: Normal Inspection. Negative for: Cyanosis, Edema Lower Extremity: Positive for: Normal Inspection. Negative for: Edema Neurological: Positive for: GCS=15, CN II-XII Intact, Speech Normal, Motor Func Grossly Intact, Normal Sensory Function Skin: Positive for: Warm, Dry, Normal Color. Negative for: Rashes Psychiatric: Positive for: Alert, Oriented x 3, Normal Insight, Normal Concentration - Medications Active Medications: Active Medications Generic Name Dose Route Start Last Admin Trade Name Freq PRN Reason Stop Dose Admin Amlodipine Besylate 5 mg 04/15/18 10:00 Norvasc PO DAILY [facility] Atorvastatin Calcium 10 mg 04/15/18 17:00 Lipitor PO DIN [facility] Enoxaparin Sodium 40 mg 04/15/18 10:00 Lovenox SC DAILY [facility] Protocol Lactated Ringer's 1,000 mls @ 200 mls/hr 04/14/18 18:15 04/15/18 04:27 Lactated Ringer's IV 200 mls/hr .Q5H DANTE Administration Insulin Detemir 35 unit 04/15/18 10:00 Levemir SC Q12 DANTE Insulin Human Lispro 40 units 04/15/18 07:30 Humalog SC AC DANTE Insulin Human Regular 0 units 04/15/18 00:45 04/15/18 04:26 Humulin R Med SC 2 units Q4H DANTE Administration Protocol Losartan Potassium 100 mg 04/15/18 10:00 Cozaar PO DAILY [facility] Mycophenolate Mofetil 500 mg 04/14/18 22:30 04/14/18 23:04 Cellcept Cap PO Not Given BID DANTE Pantoprazole Sodium 40 mg 04/15/18 10:00 Protonix Inj IVP DAILY [facility] Prednisone 5 mg 04/15/18 10:00 Prednisone Tab PO DAILY [facility] Tacrolimus 4 mg 04/14/18 22:30 04/14/18 23:11 Prograf Cap PO Not Given Q12 DANTE - Patient Studies Lab Studies: Lab Studies 04/15/18 04/15/18 04/15/18 Range/Units 06:50 04:07 02:07 WBC 9.3 (4.5-11.0) 10^3/uL RBC 3.69 (3.5-6.1) 10^6/uL Hgb 9.8 L (12.0-16.0) g/dL Hct 29.2 L (36.0-48.0) % MCV 79.1 L (80.0-105.0) fl MCH 26.6 (25.0-35.0) pg MCHC 33.6 (31.0-37.0) g/dl RDW 15.4 H (11.5-14.5) % Plt Count 217 (120.0-450.0) 10^3/uL MPV 10.3 (7.0-11.0) fl Gran % 60.0 (50.0-68.0) % Lymph % (Auto) 34.4 (22.0-35.0) % [place] % (Auto) 3.8 (1.0-6.0) % Eos % (Auto) 1.6 (1.5-5.0) % Baso % (Auto) 0.2 (0.0-3.0) % Gran # 5.59 (1.4-6.5) Lymph # (Auto) 3.2 (1.2-3.4) [place] # (Auto) 0.4 (0.1-0.6) Eos # (Auto) 0.2 (0.0-0.7) Baso # (Auto) 0.02 (0.0-2.0) K/mm3 Differential Comment Retic Count (0.5-1.5) % PT (9.4-12.5) SECONDS INR APTT (25.1-36.5) Seconds pCO2 (35-45) mm/Hg pO2 89 H (30-55) mm/Hg HCO3 (21-28) mmol/L ABG pH (7.35-7.45) ABG Total CO2 (22-28) mmol.L ABG O2 Saturation (95-98) % ABG O2 Content (15-23) ML/dl ABG Base Excess (-2.0-3.0) mmol/L ABG Hemoglobin (11.7-17.4) g/dL ABG Carboxyhemoglobin (0.5-1.5) % POC ABG HHb (Measured) (0-5) % ABG Methemoglobin (0.0-3.0) % ABG O2 Capacity (16-24) mL/dl VBG pH 7.32 (7.32-7.43) VBG pCO2 35.0 L (40-60) VBG HCO3 18.0 L (21-28) mmol/l VBG Total CO2 19.1 L (22-28) mmol.L VBG O2 Sat (Calc) 99.0 H (40-65) % VBG Base Excess -7.3 L (0.0-2.0) mmol/L VBG Potassium 3.9 (3.6-5.2) mmol/L Hgb O2 Saturation (95.0-98.0) % Glucose 399 H (65-105) mg/dl Lactate 2.9 H (0.7-2.1) mmol/L FiO2 21.0 % Sodium 134.0 (132-148) mmol/L Potassium (3.6-5.0) mmol/L Chloride 105.0 (98-107) mmol/L Carbon Dioxide (21-33) mmol/L Anion Gap (10-20) BUN (7-21) mg/dL Creatinine (0.7-1.2) mg/dl Est GFR ( Amer) Est GFR (Non-Af Amer) POC Glucose (mg/dL) 335 H (65-110) mg/dL Random Glucose (70-110) mg/dL Calcium (8.4-10.5) mg/dL Phosphorus (2.5-4.5) mg/dL Magnesium (1.7-2.2) mg/dL Iron (45-180) ug/dL TIBC (265-497) ug/dL % Saturation (20-55) % Total Bilirubin (0.2-1.3) mg/dL AST (14-36) U/L ALT (7-56) U/L Alkaline Phosphatase (38-126) U/L Troponin I ng/mL Total Protein (5.8-8.3) g/dL Albumin (3.0-4.8) g/dL Globulin gm/dL Albumin/Globulin Ratio (1.1-1.8) Triglycerides (35-160) mg/dL Cholesterol (130-200) mg/dL LDL Cholesterol Direct (0-129) mg/dL HDL Cholesterol (29-60) mg/dL Venous Blood Potassium 3.9 (3.6-5.2) mmol/L Urine Color (YELLOW) Urine Appearance (CLEAR) Urine pH (4.7-8.0) Ur Specific [place] (1.005-1.035) Urine Protein (<30 mg/dL) mg/dL Urine Glucose (UA) (NEGATIVE) mg/dL Urine Ketones (NEGATIVE) mg/dL Urine Blood (NEGATIVE) Urine Nitrate (NEGATIVE) Urine Bilirubin (NEGATIVE) Urine Urobilinogen (<1 E.U./dL) E.U./dL Ur Leukocyte Esterase (NEGATIVE) [place]/uL Urine RBC (0-2) /hpf Urine WBC (0-6) /hpf Ur Epithelial Cells (0-5) /hpf Urine Bacteria (NEG) 04/15/18 04/15/18 04/15/18 Range/Units 02:07 01:35 00:16 WBC (4.5-11.0) 10^3/uL RBC (3.5-6.1) 10^6/uL Hgb (12.0-16.0) g/dL Hct (36.0-48.0) % MCV (80.0-105.0) fl MCH (25.0-35.0) pg MCHC (31.0-37.0) g/dl RDW (11.5-14.5) % Plt Count (120.0-450.0) 10^3/uL MPV (7.0-11.0) fl Gran % (50.0-68.0) % Lymph % (Auto) (22.0-35.0) % [place] % (Auto) (1.0-6.0) % Eos % (Auto) (1.5-5.0) % Baso % (Auto) (0.0-3.0) % Gran # (1.4-6.5) Lymph # (Auto) (1.2-3.4) [place] # (Auto) (0.1-0.6) Eos # (Auto) (0.0-0.7) Baso # (Auto) (0.0-2.0) K/mm3 Differential Comment Retic Count (0.5-1.5) % PT (9.4-12.5) SECONDS INR APTT (25.1-36.5) Seconds pCO2 33 L (35-45) mm/Hg pO2 87.0 (30-55) mm/Hg HCO3 19.1 L (21-28) mmol/L ABG pH 7.37 (7.35-7.45) ABG Total CO2 20.1 L (22-28) mmol.L ABG O2 Saturation 99.3 H (95-98) % ABG O2 Content 12.8 L (15-23) ML/dl ABG Base Excess -5.5 L (-2.0-3.0) mmol/L ABG Hemoglobin 9.4 L (11.7-17.4) g/dL ABG Carboxyhemoglobin 2.2 H (0.5-1.5) % POC ABG HHb (Measured) 0.7 (0-5) % ABG Methemoglobin 1.2 (0.0-3.0) % ABG O2 Capacity 12.9 L (16-24) mL/dl VBG pH (7.32-7.43) VBG pCO2 (40-60) VBG HCO3 (21-28) mmol/l VBG Total CO2 (22-28) mmol.L VBG O2 Sat (Calc) (40-65) % VBG Base Excess (0.0-2.0) mmol/L VBG Potassium (3.6-5.2) mmol/L Hgb O2 Saturation 95.9 (95.0-98.0) % Glucose (65-105) mg/dl Lactate (0.7-2.1) mmol/L FiO2 21.0 % Sodium 133 (132-148) mmol/L Potassium 4.0 (3.6-5.0) mmol/L Chloride 108 H (98-107) mmol/L Carbon Dioxide 17 L (21-33) mmol/L Anion Gap 12 (10-20) BUN 19 (7-21) mg/dL Creatinine 1.5 H (0.7-1.2) mg/dl Est GFR ( Amer) 45 Est GFR (Non-Af Amer) 37 POC Glucose (mg/dL) 359 H (65-110) mg/dL Random Glucose 343 H* D (70-110) mg/dL Calcium 8.4 (8.4-10.5) mg/dL Phosphorus (2.5-4.5) mg/dL Magnesium (1.7-2.2) mg/dL Iron (45-180) ug/dL TIBC (265-497) ug/dL % Saturation (20-55) % Total Bilirubin (0.2-1.3) mg/dL AST (14-36) U/L ALT (7-56) U/L Alkaline Phosphatase (38-126) U/L Troponin I ng/mL Total Protein (5.8-8.3) g/dL Albumin (3.0-4.8) g/dL Globulin gm/dL Albumin/Globulin Ratio (1.1-1.8) Triglycerides (35-160) mg/dL Cholesterol (130-200) mg/dL LDL Cholesterol Direct (0-129) mg/dL HDL Cholesterol (29-60) mg/dL Venous Blood Potassium (3.6-5.2) mmol/L Urine Color (YELLOW) Urine Appearance (CLEAR) Urine pH (4.7-8.0) Ur Specific [place] (1.005-1.035) Urine Protein (<30 mg/dL) mg/dL Urine Glucose (UA) (NEGATIVE) mg/dL Urine Ketones (NEGATIVE) mg/dL Urine Blood (NEGATIVE) Urine Nitrate (NEGATIVE) Urine Bilirubin (NEGATIVE) Urine Urobilinogen (<1 E.U./dL) E.U./dL Ur Leukocyte Esterase (NEGATIVE) [place]/uL Urine RBC (0-2) /hpf Urine WBC (0-6) /hpf Ur Epithelial Cells (0-5) /hpf Urine Bacteria (NEG) 04/14/18 04/14/18 04/14/18 Range/Units 22:10 22:10 22:10 WBC (4.5-11.0) 10^3/uL RBC (3.5-6.1) 10^6/uL Hgb (12.0-16.0) g/dL Hct (36.0-48.0) % MCV (80.0-105.0) fl MCH (25.0-35.0) pg MCHC (31.0-37.0) g/dl RDW (11.5-14.5) % Plt Count (120.0-450.0) 10^3/uL MPV (7.0-11.0) fl Gran % (50.0-68.0) % Lymph % (Auto) (22.0-35.0) % [place] % (Auto) (1.0-6.0) % Eos % (Auto) (1.5-5.0) % Baso % (Auto) (0.0-3.0) % Gran # (1.4-6.5) Lymph # (Auto) (1.2-3.4) [place] # (Auto) (0.1-0.6) Eos # (Auto) (0.0-0.7) Baso # (Auto) (0.0-2.0) K/mm3 Differential Comment Retic Count 1.87 H (0.5-1.5) % PT (9.4-12.5) SECONDS INR APTT (25.1-36.5) Seconds pCO2 (35-45) mm/Hg pO2 33 (30-55) mm/Hg HCO3 (21-28) mmol/L ABG pH (7.35-7.45) ABG Total CO2 (22-28) mmol.L ABG O2 Saturation (95-98) % ABG O2 Content (15-23) ML/dl ABG Base Excess (-2.0-3.0) mmol/L ABG Hemoglobin (11.7-17.4) g/dL ABG Carboxyhemoglobin (0.5-1.5) % POC ABG HHb (Measured) (0-5) % ABG Methemoglobin (0.0-3.0) % ABG O2 Capacity (16-24) mL/dl VBG pH 7.34 (7.32-7.43) VBG pCO2 37.0 L (40-60) VBG HCO3 20.0 L (21-28) mmol/l VBG Total CO2 21.1 L (22-28) mmol.L VBG O2 Sat (Calc) 72.8 H (40-65) % VBG Base Excess -5.2 L (0.0-2.0) mmol/L VBG Potassium 4.0 (3.6-5.2) mmol/L Hgb O2 Saturation (95.0-98.0) % Glucose 261 H (65-105) mg/dl Lactate 3.7 H (0.7-2.1) mmol/L FiO2 21.0 % Sodium 133 136.0 (132-148) mmol/L Potassium 4.9 (3.6-5.0) mmol/L Chloride 106 104.0 (98-107) mmol/L Carbon Dioxide 19 L (21-33) mmol/L Anion Gap 13 (10-20) BUN 19 (7-21) mg/dL Creatinine 1.5 H (0.7-1.2) mg/dl Est GFR ( Amer) 45 Est GFR (Non-Af Amer) 37 POC Glucose (mg/dL) (65-110) mg/dL Random Glucose 221 H (70-110) mg/dL Calcium 8.7 (8.4-10.5) mg/dL Phosphorus (2.5-4.5) mg/dL Magnesium (1.7-2.2) mg/dL Iron (45-180) ug/dL TIBC (265-497) ug/dL % Saturation (20-55) % Total Bilirubin (0.2-1.3) mg/dL AST (14-36) U/L ALT (7-56) U/L Alkaline Phosphatase (38-126) U/L Troponin I < 0.01 ng/mL Total Protein (5.8-8.3) g/dL Albumin (3.0-4.8) g/dL Globulin gm/dL Albumin/Globulin Ratio (1.1-1.8) Triglycerides (35-160) mg/dL Cholesterol (130-200) mg/dL LDL Cholesterol Direct (0-129) mg/dL HDL Cholesterol (29-60) mg/dL Venous Blood Potassium 4.0 (3.6-5.2) mmol/L Urine Color (YELLOW) Urine Appearance (CLEAR) Urine pH (4.7-8.0) Ur Specific [place] (1.005-1.035) Urine Protein (<30 mg/dL) mg/dL Urine Glucose (UA) (NEGATIVE) mg/dL Urine Ketones (NEGATIVE) mg/dL Urine Blood (NEGATIVE) Urine Nitrate (NEGATIVE) Urine Bilirubin (NEGATIVE) Urine Urobilinogen (<1 E.U./dL) E.U./dL Ur Leukocyte Esterase (NEGATIVE) [place]/uL Urine RBC (0-2) /hpf Urine WBC (0-6) /hpf Ur Epithelial Cells (0-5) /hpf Urine Bacteria (NEG) 04/14/18 04/14/18 04/14/18 Range/Units 21:56 20:28 19:22 WBC (4.5-11.0) 10^3/uL RBC (3.5-6.1) 10^6/uL Hgb (12.0-16.0) g/dL Hct (36.0-48.0) % MCV (80.0-105.0) fl MCH (25.0-35.0) pg MCHC (31.0-37.0) g/dl RDW (11.5-14.5) % Plt Count (120.0-450.0) 10^3/uL MPV (7.0-11.0) fl Gran % (50.0-68.0) % Lymph % (Auto) (22.0-35.0) % [place] % (Auto) (1.0-6.0) % Eos % (Auto) (1.5-5.0) % Baso % (Auto) (0.0-3.0) % Gran # (1.4-6.5) Lymph # (Auto) (1.2-3.4) [place] # (Auto) (0.1-0.6) Eos # (Auto) (0.0-0.7) Baso # (Auto) (0.0-2.0) K/mm3 Differential Comment Retic Count (0.5-1.5) % PT (9.4-12.5) SECONDS INR APTT (25.1-36.5) Seconds pCO2 (35-45) mm/Hg pO2 (30-55) mm/Hg HCO3 (21-28) mmol/L ABG pH (7.35-7.45) ABG Total CO2 (22-28) mmol.L ABG O2 Saturation (95-98) % ABG O2 Content (15-23) ML/dl ABG Base Excess (-2.0-3.0) mmol/L ABG Hemoglobin (11.7-17.4) g/dL ABG Carboxyhemoglobin (0.5-1.5) % POC ABG HHb (Measured) (0-5) % ABG Methemoglobin (0.0-3.0) % ABG O2 Capacity (16-24) mL/dl VBG pH (7.32-7.43) VBG pCO2 (40-60) VBG HCO3 (21-28) mmol/l VBG Total CO2 (22-28) mmol.L VBG O2 Sat (Calc) (40-65) % VBG Base Excess (0.0-2.0) mmol/L VBG Potassium (3.6-5.2) mmol/L Hgb O2 Saturation (95.0-98.0) % Glucose (65-105) mg/dl Lactate (0.7-2.1) mmol/L FiO2 % Sodium 136 (132-148) mmol/L Potassium 3.7 (3.6-5.0) mmol/L Chloride 103 (98-107) mmol/L Carbon Dioxide 21 (21-33) mmol/L Anion Gap 16 (10-20) BUN 24 H (7-21) mg/dL Creatinine 1.9 H (0.7-1.2) mg/dl Est GFR ( Amer) 34 Est GFR (Non-Af Amer) 28 POC Glucose (mg/dL) 215 H (65-110) mg/dL Random Glucose 300 H (70-110) mg/dL Calcium 9.8 (8.4-10.5) mg/dL Phosphorus 2.8 (2.5-4.5) mg/dL Magnesium 1.9 (1.7-2.2) mg/dL Iron 69 (45-180) ug/dL TIBC 208 L (265-497) ug/dL % Saturation 33 (20-55) % Total Bilirubin (0.2-1.3) mg/dL AST (14-36) U/L ALT (7-56) U/L Alkaline Phosphatase (38-126) U/L Troponin I ng/mL Total Protein (5.8-8.3) g/dL Albumin (3.0-4.8) g/dL Globulin gm/dL Albumin/Globulin Ratio (1.1-1.8) Triglycerides (35-160) mg/dL Cholesterol (130-200) mg/dL LDL Cholesterol Direct (0-129) mg/dL HDL Cholesterol (29-60) mg/dL Venous Blood Potassium (3.6-5.2) mmol/L Urine Color (YELLOW) Urine Appearance (CLEAR) Urine pH (4.7-8.0) Ur Specific [place] (1.005-1.035) Urine Protein (<30 mg/dL) mg/dL Urine Glucose (UA) (NEGATIVE) mg/dL Urine Ketones (NEGATIVE) mg/dL Urine Blood (NEGATIVE) Urine Nitrate (NEGATIVE) Urine Bilirubin (NEGATIVE) Urine Urobilinogen (<1 E.U./dL) E.U./dL Ur Leukocyte Esterase (NEGATIVE) [place]/uL Urine RBC (0-2) /hpf Urine WBC (0-6) /hpf Ur Epithelial Cells (0-5) /hpf Urine Bacteria (NEG) 04/14/18 04/14/18 04/14/18 Range/Units 18:51 18:27 16:56 WBC (4.5-11.0) 10^3/uL RBC (3.5-6.1) 10^6/uL Hgb (12.0-16.0) g/dL Hct (36.0-48.0) % MCV (80.0-105.0) fl MCH (25.0-35.0) pg MCHC (31.0-37.0) g/dl RDW (11.5-14.5) % Plt Count (120.0-450.0) 10^3/uL MPV (7.0-11.0) fl Gran % (50.0-68.0) % Lymph % (Auto) (22.0-35.0) % [place] % (Auto) (1.0-6.0) % Eos % (Auto) (1.5-5.0) % Baso % (Auto) (0.0-3.0) % Gran # (1.4-6.5) Lymph # (Auto) (1.2-3.4) [place] # (Auto) (0.1-0.6) Eos # (Auto) (0.0-0.7) Baso # (Auto) (0.0-2.0) K/mm3 Differential Comment Retic Count (0.5-1.5) % PT (9.4-12.5) SECONDS INR APTT (25.1-36.5) Seconds pCO2 (35-45) mm/Hg pO2 106 H (30-55) mm/Hg HCO3 (21-28) mmol/L ABG pH (7.35-7.45) ABG Total CO2 (22-28) mmol.L ABG O2 Saturation (95-98) % ABG O2 Content (15-23) ML/dl ABG Base Excess (-2.0-3.0) mmol/L ABG Hemoglobin (11.7-17.4) g/dL ABG Carboxyhemoglobin (0.5-1.5) % POC ABG HHb (Measured) (0-5) % ABG Methemoglobin (0.0-3.0) % ABG O2 Capacity (16-24) mL/dl VBG pH 7.19 L* (7.32-7.43) VBG pCO2 46.0 (40-60) VBG HCO3 17.6 L (21-28) mmol/l VBG Total CO2 19.0 L (22-28) mmol.L VBG O2 Sat (Calc) 98.8 H (40-65) % VBG Base Excess -10.4 L (0.0-2.0) mmol/L VBG Potassium 3.4 L (3.6-5.2) mmol/L Hgb O2 Saturation (95.0-98.0) % Glucose 704 H* (65-105) mg/dl Lactate 5.9 H* (0.7-2.1) mmol/L FiO2 21.0 % Sodium 132.0 (132-148) mmol/L Potassium (3.6-5.0) mmol/L Chloride 95.0 L (98-107) mmol/L Carbon Dioxide (21-33) mmol/L Anion Gap (10-20) BUN (7-21) mg/dL Creatinine (0.7-1.2) mg/dl Est GFR ( Amer) Est GFR (Non-Af Amer) POC Glucose (mg/dL) 299 H (65-110) mg/dL Random Glucose (70-110) mg/dL Calcium (8.4-10.5) mg/dL Phosphorus (2.5-4.5) mg/dL Magnesium (1.7-2.2) mg/dL Iron (45-180) ug/dL TIBC (265-497) ug/dL % Saturation (20-55) % Total Bilirubin (0.2-1.3) mg/dL AST (14-36) U/L ALT (7-56) U/L Alkaline Phosphatase (38-126) U/L Troponin I ng/mL Total Protein (5.8-8.3) g/dL Albumin (3.0-4.8) g/dL Globulin gm/dL Albumin/Globulin Ratio (1.1-1.8) Triglycerides (35-160) mg/dL Cholesterol (130-200) mg/dL LDL Cholesterol Direct (0-129) mg/dL HDL Cholesterol (29-60) mg/dL Venous Blood Potassium 3.4 L (3.6-5.2) mmol/L Urine Color Light yellow (YELLOW) Urine Appearance Clear (CLEAR) Urine pH 6.0 (4.7-8.0) Ur Specific [place] 1.010 (1.005-1.035) Urine Protein 100 H (<30 mg/dL) mg/dL Urine Glucose (UA) >=1000 (NEGATIVE) mg/dL Urine Ketones Negative (NEGATIVE) mg/dL Urine Blood Small H (NEGATIVE) Urine Nitrate Negative (NEGATIVE) Urine Bilirubin Negative (NEGATIVE) Urine Urobilinogen 0.2 (<1 E.U./dL) E.U./dL Ur Leukocyte Esterase Trace H (NEGATIVE) [place]/uL Urine RBC 0 - 2 (0-2) /hpf Urine WBC 2 - 5 (0-6) /hpf Ur Epithelial Cells None (0-5) /hpf Urine Bacteria Trace (NEG) 04/14/18 04/14/18 04/14/18 Range/Units 16:01 16:01 16:01 WBC (4.5-11.0) 10^3/uL RBC (3.5-6.1) 10^6/uL Hgb (12.0-16.0) g/dL Hct (36.0-48.0) % MCV (80.0-105.0) fl MCH (25.0-35.0) pg MCHC (31.0-37.0) g/dl RDW (11.5-14.5) % Plt Count (120.0-450.0) 10^3/uL MPV (7.0-11.0) fl Gran % (50.0-68.0) % Lymph % (Auto) (22.0-35.0) % [place] % (Auto) (1.0-6.0) % Eos % (Auto) (1.5-5.0) % Baso % (Auto) (0.0-3.0) % Gran # (1.4-6.5) Lymph # (Auto) (1.2-3.4) [place] # (Auto) (0.1-0.6) Eos # (Auto) (0.0-0.7) Baso # (Auto) (0.0-2.0) K/mm3 Differential Comment See pathology report Retic Count (0.5-1.5) % PT 10.9 (9.4-12.5) SECONDS INR 0.96 APTT 29.8 (25.1-36.5) Seconds pCO2 (35-45) mm/Hg pO2 (30-55) mm/Hg HCO3 (21-28) mmol/L ABG pH (7.35-7.45) ABG Total CO2 (22-28) mmol.L ABG O2 Saturation (95-98) % ABG O2 Content (15-23) ML/dl ABG Base Excess (-2.0-3.0) mmol/L ABG Hemoglobin (11.7-17.4) g/dL ABG Carboxyhemoglobin (0.5-1.5) % POC ABG HHb (Measured) (0-5) % ABG Methemoglobin (0.0-3.0) % ABG O2 Capacity (16-24) mL/dl VBG pH (7.32-7.43) VBG pCO2 (40-60) VBG HCO3 (21-28) mmol/l VBG Total CO2 (22-28) mmol.L VBG O2 Sat (Calc) (40-65) % VBG Base Excess (0.0-2.0) mmol/L VBG Potassium (3.6-5.2) mmol/L Hgb O2 Saturation (95.0-98.0) % Glucose (65-105) mg/dl Lactate (0.7-2.1) mmol/L FiO2 % Sodium 130 L (132-148) mmol/L Potassium 3.3 L (3.6-5.0) mmol/L Chloride 94 L (98-107) mmol/L Carbon Dioxide 18 L (21-33) mmol/L Anion Gap 21 H (10-20) BUN 25 H (7-21) mg/dL Creatinine 2.0 H (0.7-1.2) mg/dl Est GFR ( Amer) 32 Est GFR (Non-Af Amer) 26 POC Glucose (mg/dL) (65-110) mg/dL Random Glucose 847 H* (70-110) mg/dL Calcium 9.8 (8.4-10.5) mg/dL Phosphorus (2.5-4.5) mg/dL Magnesium (1.7-2.2) mg/dL Iron (45-180) ug/dL TIBC (265-497) ug/dL % Saturation (20-55) % Total Bilirubin 0.4 (0.2-1.3) mg/dL AST 20 (14-36) U/L ALT 19 (7-56) U/L Alkaline Phosphatase 182 H (38-126) U/L Troponin I < 0.01 ng/mL Total Protein 8.0 (5.8-8.3) g/dL Albumin 4.2 (3.0-4.8) g/dL Globulin 3.7 gm/dL Albumin/Globulin Ratio 1.1 (1.1-1.8) Triglycerides 363 H (35-160) mg/dL Cholesterol 248 H (130-200) mg/dL LDL Cholesterol Direct 147 H (0-129) mg/dL HDL Cholesterol 36 (29-60) mg/dL Venous Blood Potassium (3.6-5.2) mmol/L Urine Color (YELLOW) Urine Appearance (CLEAR) Urine pH (4.7-8.0) Ur Specific [place] (1.005-1.035) Urine Protein (<30 mg/dL) mg/dL Urine Glucose (UA) (NEGATIVE) mg/dL Urine Ketones (NEGATIVE) mg/dL Urine Blood (NEGATIVE) Urine Nitrate (NEGATIVE) Urine Bilirubin (NEGATIVE) Urine Urobilinogen (<1 E.U./dL) E.U./dL Ur Leukocyte Esterase (NEGATIVE) [place]/uL Urine RBC (0-2) /hpf Urine WBC (0-6) /hpf Ur Epithelial Cells (0-5) /hpf Urine Bacteria (NEG) 04/14/18 04/14/18 Range/Units 16:01 15:46 WBC 8.9 (4.5-11.0) 10^3/uL RBC 4.10 (3.5-6.1) 10^6/uL Hgb 10.9 L (12.0-16.0) g/dL Hct 33.2 L (36.0-48.0) % MCV 81.0 (80.0-105.0) fl MCH 26.6 (25.0-35.0) pg MCHC 32.8 (31.0-37.0) g/dl RDW 15.1 H (11.5-14.5) % Plt Count 271 (120.0-450.0) 10^3/uL MPV 11.2 H (7.0-11.0) fl Gran % 79.4 H (50.0-68.0) % Lymph % (Auto) 17.4 L (22.0-35.0) % [place] % (Auto) 2.6 (1.0-6.0) % Eos % (Auto) 0.4 L (1.5-5.0) % Baso % (Auto) 0.2 (0.0-3.0) % Gran # 7.08 H (1.4-6.5) Lymph # (Auto) 1.6 (1.2-3.4) [place] # (Auto) 0.2 (0.1-0.6) Eos # (Auto) 0.0 (0.0-0.7) Baso # (Auto) 0.02 (0.0-2.0) K/mm3 Differential Comment Retic Count (0.5-1.5) % PT (9.4-12.5) SECONDS INR APTT (25.1-36.5) Seconds pCO2 (35-45) mm/Hg pO2 (30-55) mm/Hg HCO3 (21-28) mmol/L ABG pH (7.35-7.45) ABG Total CO2 (22-28) mmol.L ABG O2 Saturation (95-98) % ABG O2 Content (15-23) ML/dl ABG Base Excess (-2.0-3.0) mmol/L ABG Hemoglobin (11.7-17.4) g/dL ABG Carboxyhemoglobin (0.5-1.5) % POC ABG HHb (Measured) (0-5) % ABG Methemoglobin (0.0-3.0) % ABG O2 Capacity (16-24) mL/dl VBG pH (7.32-7.43) VBG pCO2 (40-60) VBG HCO3 (21-28) mmol/l VBG Total CO2 (22-28) mmol.L VBG O2 Sat (Calc) (40-65) % VBG Base Excess (0.0-2.0) mmol/L VBG Potassium (3.6-5.2) mmol/L Hgb O2 Saturation (95.0-98.0) % Glucose (65-105) mg/dl Lactate (0.7-2.1) mmol/L FiO2 % Sodium (132-148) mmol/L Potassium (3.6-5.0) mmol/L Chloride (98-107) mmol/L Carbon Dioxide (21-33) mmol/L Anion Gap (10-20) BUN (7-21) mg/dL Creatinine (0.7-1.2) mg/dl Est GFR ( Amer) Est GFR (Non-Af Amer) POC Glucose (mg/dL) > 500 H* (65-110) mg/dL Random Glucose (70-110) mg/dL Calcium (8.4-10.5) mg/dL Phosphorus (2.5-4.5) mg/dL Magnesium (1.7-2.2) mg/dL Iron (45-180) ug/dL TIBC (265-497) ug/dL % Saturation (20-55) % Total Bilirubin (0.2-1.3) mg/dL AST (14-36) U/L ALT (7-56) U/L Alkaline Phosphatase (38-126) U/L Troponin I ng/mL Total Protein (5.8-8.3) g/dL Albumin (3.0-4.8) g/dL Globulin gm/dL Albumin/Globulin Ratio (1.1-1.8) Triglycerides (35-160) mg/dL Cholesterol (130-200) mg/dL LDL Cholesterol Direct (0-129) mg/dL HDL Cholesterol (29-60) mg/dL Venous Blood Potassium (3.6-5.2) mmol/L Urine Color (YELLOW) Urine Appearance (CLEAR) Urine pH (4.7-8.0) Ur Specific [place] (1.005-1.035) Urine Protein (<30 mg/dL) mg/dL Urine Glucose (UA) (NEGATIVE) mg/dL Urine Ketones (NEGATIVE) mg/dL Urine Blood (NEGATIVE) Urine Nitrate (NEGATIVE) Urine Bilirubin (NEGATIVE) Urine Urobilinogen (<1 E.U./dL) E.U./dL Ur Leukocyte Esterase (NEGATIVE) [place]/uL Urine RBC (0-2) /hpf Urine WBC (0-6) /hpf Ur Epithelial Cells (0-5) /hpf Urine Bacteria (NEG) Laboratory Results - last 24 hr 04/14/18 04/14/18 04/14/18 15:46 16:01 16:01 WBC 8.9 RBC 4.10 Hgb 10.9 L Hct 33.2 L MCV 81.0 MCH 26.6 MCHC 32.8 RDW 15.1 H Plt Count 271 MPV 11.2 H Gran % 79.4 H Lymph % (Auto) 17.4 L [place] % (Auto) 2.6 Eos % (Auto) 0.4 L Baso % (Auto) 0.2 Gran # 7.08 H Lymph # (Auto) 1.6 [place] # (Auto) 0.2 Eos # (Auto) 0.0 Baso # (Auto) 0.02 Differential Comment Retic Count PT 10.9 INR 0.96 APTT 29.8 pCO2 pO2 HCO3 ABG pH ABG Total CO2 ABG O2 Saturation ABG O2 Content ABG Base Excess ABG Hemoglobin ABG Carboxyhemoglobin POC ABG HHb (Measured) ABG Methemoglobin ABG O2 Capacity VBG pH VBG pCO2 VBG HCO3 VBG Total CO2 VBG O2 Sat (Calc) VBG Base Excess VBG Potassium Hgb O2 Saturation Glucose Lactate FiO2 Sodium Potassium Chloride Carbon Dioxide Anion Gap BUN Creatinine Est GFR ( Amer) Est GFR (Non-Af Amer) POC Glucose (mg/dL) > 500 H* Random Glucose Calcium Phosphorus Magnesium Iron TIBC % Saturation Total Bilirubin AST ALT Alkaline Phosphatase Troponin I Total Protein Albumin Globulin Albumin/Globulin Ratio Triglycerides Cholesterol LDL Cholesterol Direct HDL Cholesterol Venous Blood Potassium Urine Color Urine Appearance Urine pH Ur Specific [place] Urine Protein Urine Glucose (UA) Urine Ketones Urine Blood Urine Nitrate Urine Bilirubin Urine Urobilinogen Ur Leukocyte Esterase Urine RBC Urine WBC Ur Epithelial Cells Urine Bacteria 04/14/18 04/14/18 04/14/18 16:01 16:01 16:56 WBC RBC Hgb Hct MCV MCH MCHC RDW Plt Count MPV Gran % Lymph % (Auto) [place] % (Auto) Eos % (Auto) Baso % (Auto) Gran # Lymph # (Auto) [place] # (Auto) Eos # (Auto) Baso # (Auto) Differential Comment See pathology report Retic Count PT INR APTT pCO2 pO2 106 H HCO3 ABG pH ABG Total CO2 ABG O2 Saturation ABG O2 Content ABG Base Excess ABG Hemoglobin ABG Carboxyhemoglobin POC ABG HHb (Measured) ABG Methemoglobin ABG O2 Capacity VBG pH 7.19 L* VBG pCO2 46.0 VBG HCO3 17.6 L VBG Total CO2 19.0 L VBG O2 Sat (Calc) 98.8 H VBG Base Excess -10.4 L VBG Potassium 3.4 L Hgb O2 Saturation Glucose 704 H* Lactate 5.9 H* FiO2 21.0 Sodium 130 L 132.0 Potassium 3.3 L Chloride 94 L 95.0 L Carbon Dioxide 18 L Anion Gap 21 H BUN 25 H Creatinine 2.0 H Est GFR ( Amer) 32 Est GFR (Non-Af Amer) 26 POC Glucose (mg/dL) Random Glucose 847 H* Calcium 9.8 Phosphorus Magnesium Iron TIBC % Saturation Total Bilirubin 0.4 AST 20 ALT 19 Alkaline Phosphatase 182 H Troponin I < 0.01 Total Protein 8.0 Albumin 4.2 Globulin 3.7 Albumin/Globulin Ratio 1.1 Triglycerides 363 H Cholesterol 248 H LDL Cholesterol Direct 147 H HDL Cholesterol 36 Venous Blood Potassium 3.4 L Urine Color Urine Appearance Urine pH Ur Specific [place] Urine Protein Urine Glucose (UA) Urine Ketones Urine Blood Urine Nitrate Urine Bilirubin Urine Urobilinogen Ur Leukocyte Esterase Urine RBC Urine WBC Ur Epithelial Cells Urine Bacteria 04/14/18 04/14/18 04/14/18 18:27 18:51 19:22 WBC RBC Hgb Hct MCV MCH MCHC RDW Plt Count MPV Gran % Lymph % (Auto) [place] % (Auto) Eos % (Auto) Baso % (Auto) Gran # Lymph # (Auto) [place] # (Auto) Eos # (Auto) Baso # (Auto) Differential Comment Retic Count PT INR APTT pCO2 pO2 HCO3 ABG pH ABG Total CO2 ABG O2 Saturation ABG O2 Content ABG Base Excess ABG Hemoglobin ABG Carboxyhemoglobin POC ABG HHb (Measured) ABG Methemoglobin ABG O2 Capacity VBG pH VBG pCO2 VBG HCO3 VBG Total CO2 VBG O2 Sat (Calc) VBG Base Excess VBG Potassium Hgb O2 Saturation Glucose Lactate FiO2 Sodium 136 Potassium 3.7 Chloride 103 Carbon Dioxide 21 Anion Gap 16 BUN 24 H Creatinine 1.9 H Est GFR ( Amer) 34 Est GFR (Non-Af Amer) 28 POC Glucose (mg/dL) 299 H Random Glucose 300 H Calcium 9.8 Phosphorus 2.8 Magnesium 1.9 Iron TIBC % Saturation Total Bilirubin AST ALT Alkaline Phosphatase Troponin I Total Protein Albumin Globulin Albumin/Globulin Ratio Triglycerides Cholesterol LDL Cholesterol Direct HDL Cholesterol Venous Blood Potassium Urine Color Light yellow Urine Appearance Clear Urine pH 6.0 Ur Specific [place] 1.010 Urine Protein 100 H Urine Glucose (UA) >=1000 Urine Ketones Negative Urine Blood Small H Urine Nitrate Negative Urine Bilirubin Negative Urine Urobilinogen 0.2 Ur Leukocyte Esterase Trace H Urine RBC 0 - 2 Urine WBC 2 - 5 Ur Epithelial Cells None Urine Bacteria Trace 04/14/18 04/14/18 04/14/18 20:28 21:56 22:10 WBC RBC Hgb Hct MCV MCH MCHC RDW Plt Count MPV Gran % Lymph % (Auto) [place] % (Auto) Eos % (Auto) Baso % (Auto) Gran # Lymph # (Auto) [place] # (Auto) Eos # (Auto) Baso # (Auto) Differential Comment Retic Count PT INR APTT pCO2 pO2 33 HCO3 ABG pH ABG Total CO2 ABG O2 Saturation ABG O2 Content ABG Base Excess ABG Hemoglobin ABG Carboxyhemoglobin POC ABG HHb (Measured) ABG Methemoglobin ABG O2 Capacity VBG pH 7.34 VBG pCO2 37.0 L VBG HCO3 20.0 L VBG Total CO2 21.1 L VBG O2 Sat (Calc) 72.8 H VBG Base Excess -5.2 L VBG Potassium 4.0 Hgb O2 Saturation Glucose 261 H Lactate 3.7 H FiO2 21.0 Sodium 136.0 Potassium Chloride 104.0 Carbon Dioxide Anion Gap BUN Creatinine Est GFR ( Amer) Est GFR (Non-Af Amer) POC Glucose (mg/dL) 215 H Random Glucose Calcium Phosphorus Magnesium Iron 69 TIBC 208 L % Saturation 33 Total Bilirubin AST ALT Alkaline Phosphatase Troponin I Total Protein Albumin Globulin Albumin/Globulin Ratio Triglycerides Cholesterol LDL Cholesterol Direct HDL Cholesterol Venous Blood Potassium 4.0 Urine Color Urine Appearance Urine pH Ur Specific [place] Urine Protein Urine Glucose (UA) Urine Ketones Urine Blood Urine Nitrate Urine Bilirubin Urine Urobilinogen Ur Leukocyte Esterase Urine RBC Urine WBC Ur Epithelial Cells Urine Bacteria 04/14/18 04/14/18 04/15/18 22:10 22:10 00:16 WBC RBC Hgb Hct MCV MCH MCHC RDW Plt Count MPV Gran % Lymph % (Auto) [place] % (Auto) Eos % (Auto) Baso % (Auto) Gran # Lymph # (Auto) [place] # (Auto) Eos # (Auto) Baso # (Auto) Differential Comment Retic Count 1.87 H PT INR APTT pCO2 pO2 HCO3 ABG pH ABG Total CO2 ABG O2 Saturation ABG O2 Content ABG Base Excess ABG Hemoglobin ABG Carboxyhemoglobin POC ABG HHb (Measured) ABG Methemoglobin ABG O2 Capacity VBG pH VBG pCO2 VBG HCO3 VBG Total CO2 VBG O2 Sat (Calc) VBG Base Excess VBG Potassium Hgb O2 Saturation Glucose Lactate FiO2 Sodium 133 Potassium 4.9 Chloride 106 Carbon Dioxide 19 L Anion Gap 13 BUN 19 Creatinine 1.5 H Est GFR ( Amer) 45 Est GFR (Non-Af Amer) 37 POC Glucose (mg/dL) 359 H Random Glucose 221 H Calcium 8.7 Phosphorus Magnesium Iron TIBC % Saturation Total Bilirubin AST ALT Alkaline Phosphatase Troponin I < 0.01 Total Protein Albumin Globulin Albumin/Globulin Ratio Triglycerides Cholesterol LDL Cholesterol Direct HDL Cholesterol Venous Blood Potassium Urine Color Urine Appearance Urine pH Ur Specific [place] Urine Protein Urine Glucose (UA) Urine Ketones Urine Blood Urine Nitrate Urine Bilirubin Urine Urobilinogen Ur Leukocyte Esterase Urine RBC Urine WBC Ur Epithelial Cells Urine Bacteria 04/15/18 04/15/18 04/15/18 01:35 02:07 02:07 WBC RBC Hgb Hct MCV MCH MCHC RDW Plt Count MPV Gran % Lymph % (Auto) [place] % (Auto) Eos % (Auto) Baso % (Auto) Gran # Lymph # (Auto) [place] # (Auto) Eos # (Auto) Baso # (Auto) Differential Comment Retic Count PT INR APTT pCO2 33 L pO2 87.0 89 H HCO3 19.1 L ABG pH 7.37 ABG Total CO2 20.1 L ABG O2 Saturation 99.3 H ABG O2 Content 12.8 L ABG Base Excess -5.5 L ABG Hemoglobin 9.4 L ABG Carboxyhemoglobin 2.2 H POC ABG HHb (Measured) 0.7 ABG Methemoglobin 1.2 ABG O2 Capacity 12.9 L VBG pH 7.32 VBG pCO2 35.0 L VBG HCO3 18.0 L VBG Total CO2 19.1 L VBG O2 Sat (Calc) 99.0 H VBG Base Excess -7.3 L VBG Potassium 3.9 Hgb O2 Saturation 95.9 Glucose 399 H Lactate 2.9 H FiO2 21.0 21.0 Sodium 133 134.0 Potassium 4.0 Chloride 108 H 105.0 Carbon Dioxide 17 L Anion Gap 12 BUN 19 Creatinine 1.5 H Est GFR ( Amer) 45 Est GFR (Non-Af Amer) 37 POC Glucose (mg/dL) Random Glucose 343 H* D Calcium 8.4 Phosphorus Magnesium Iron TIBC % Saturation Total Bilirubin AST ALT Alkaline Phosphatase Troponin I Total Protein Albumin Globulin Albumin/Globulin Ratio Triglycerides Cholesterol LDL Cholesterol Direct HDL Cholesterol Venous Blood Potassium 3.9 Urine Color Urine Appearance Urine pH Ur Specific [place] Urine Protein Urine Glucose (UA) Urine Ketones Urine Blood Urine Nitrate Urine Bilirubin Urine Urobilinogen Ur Leukocyte Esterase Urine RBC Urine WBC Ur Epithelial Cells Urine Bacteria 04/15/18 04/15/18 04:07 06:50 WBC 9.3 RBC 3.69 Hgb 9.8 L Hct 29.2 L MCV 79.1 L MCH 26.6 MCHC 33.6 RDW 15.4 H Plt Count 217 MPV 10.3 Gran % 60.0 Lymph % (Auto) 34.4 [place] % (Auto) 3.8 Eos % (Auto) 1.6 Baso % (Auto) 0.2 Gran # 5.59 Lymph # (Auto) 3.2 [place] # (Auto) 0.4 Eos # (Auto) 0.2 Baso # (Auto) 0.02 Differential Comment Retic Count PT INR APTT pCO2 pO2 HCO3 ABG pH ABG Total CO2 ABG O2 Saturation ABG O2 Content ABG Base Excess ABG Hemoglobin ABG Carboxyhemoglobin POC ABG HHb (Measured) ABG Methemoglobin ABG O2 Capacity VBG pH VBG pCO2 VBG HCO3 VBG Total CO2 VBG O2 Sat (Calc) VBG Base Excess VBG Potassium Hgb O2 Saturation Glucose Lactate FiO2 Sodium Potassium Chloride Carbon Dioxide Anion Gap BUN Creatinine Est GFR ( Amer) Est GFR (Non-Af Amer) POC Glucose (mg/dL) 335 H Random Glucose Calcium Phosphorus Magnesium Iron TIBC % Saturation Total Bilirubin AST ALT Alkaline Phosphatase Troponin I Total Protein Albumin Globulin Albumin/Globulin Ratio Triglycerides Cholesterol LDL Cholesterol Direct HDL Cholesterol Venous Blood Potassium Urine Color Urine Appearance Urine pH Ur Specific [place] Urine Protein Urine Glucose (UA) Urine Ketones Urine Blood Urine Nitrate Urine Bilirubin Urine Urobilinogen Ur Leukocyte Esterase Urine RBC Urine WBC Ur Epithelial Cells Urine Bacteria EKG/Cardiology Studies: Cardiology / EKG Studies 04/14/18 15:46 ELECTROCARDIOGRAM Stat Comment: Reason For Exam: code stroke Fingerstick Blood Sugar Results: 359 Critical Care Progress Note - Nutrition Nutrition: Nutrition Category Date Time Status Renal Diet [DIET] Diets 04/14/18 Dinner Ordered
[2018-04-15 07:51] LABS: ALBUMIN 3.3 g/dL (3.0-4.8); CALCIUM 9.3 mg/dL (8.4-10.5)
[2018-04-15] MEDS: Insulin Lispro 1 UNITS/0.01 ML SC SCH ×3 (08:07→17:26)
--- NOTE | 2018-04-15 08:46 | CT ---
Date of service: 04/14/2018 PROCEDURE: CT Chest without contrast HISTORY: f/u to CXR - ? mass COMPARISON: None available. TECHNIQUE: Contiguous axial images were obtained through the chest without intravenous contrast enhancement. Sagittal and coronal reconstructions were performed. Radiation dose: Total exam DLP = 709.17 mGy-cm. This CT exam was performed using one or more of the following dose reduction techniques: Automated exposure control, adjustment of the mA and/or kV according to patient size, and/or use of iterative reconstruction technique. FINDINGS: LUNGS: Clear lungs. Visualized airway clear MEDIASTINUM: Unremarkable thoracic aorta. No aneurysm. Moderate pericardial effusion. Main pulmonary artery unremarkable. No vascular congestion. Calcified mediastinal lymphadenopathy compatible with old granulomatous infection. No aortic atherosclerotic calcification. PLEURA: No pleural fluid. No pneumothorax. BONES: No fracture. No destructive lesion. UPPER ABDOMEN: Severe bilateral renal atrophy. Gallstones. OTHER FINDINGS: None. IMPRESSION: Pericardial effusion. Mediastinal calcified lymphadenopathy compatible with old granulomatous disease. Severe bilateral renal atrophy. Cholelithiasis.
--- NOTE | 2018-04-15 08:56 | CON ---
DATE: 04/15/2018 CCU 129, room 1. HISTORY OF PRESENT ILLNESS: This is a 47-year-old female with known history of type 1 insulin-dependent diabetes presenting here with generalized body weakness and sudden onset of slurred speech with supervening marked hyperglycemic accelerations related to drug omission and is now being referred for diabetic evaluation and management. PAST MEDICAL HISTORY: History of type 1 insulin-dependent diabetes, currently on a combination of Lantus given as 70 units at bedtime with NovoLog at 40 units three times a day before meals. History of hypertension and dyslipidemia, history of diabetic retinopathy with multiple laser treatments to both eyes with diabetic polyneuropathy and nephropathy with a prior end-stage renal disease in early 1999 and received a renal transplant in 2007 and currently on immunosuppressive therapy including oral steroids. History of a prior left breast mass and tumor with a subsequent lumpectomy and also with subsequent uterine fibroids with myomectomy undertaken thereof. FAMILY HISTORY: Positive for hypertension and heart disease. SOCIAL HISTORY The patient has a supportive and family. No known substance use. She is a former smoker, but quit many years ago. REVIEW OF SYSTEMS: As mentioned above. Admits to generalized body weakness with severe bouts of dizziness and lightheadedness and visual blurring worse on the day of admission. No chest pains or palpitations, but admits to shortness of breath on exertion. Her oral intake has been nil and suboptimal with nausea and dyspepsia as noted. Also admits to marked polyuria, nocturia, and polydipsia. PHYSICAL EXAMINATION: GENERAL APPEARANCE: This is an overweight female in no apparent distress. VITAL SIGNS: Blood pressure of 140/80, pulse of 100 beats per minute, regular; temperature 99; respirations 20. The patient's height is 5 feet 2 inches, weight is 213 pounds. HEENT: Head normocephalic. Eyes anicteric with pink conjunctivae possibly at this time. Ears, nose, and throat otherwise normal. NECK: Supple. Thyroid gland is normal in size. No carotid bruits or cervical adenopathy. CARDIOPULMONARY: Some adynamic precordium. S1, S2 is rapid and regular. LUNGS: Clear to auscultation. ABDOMEN: Flat, soft with positive bowel sounds. EXTREMITIES: No peripheral edema. Pulses are +2 bilaterally. LABORATORY DATA: Her initial chemistry showed a BUN of 25, sodium 130, potassium 3.3, chloride 94, CO2 of 18, glucose 847, and creatinine 2.0. The latest CO2 today is 23 with a glucose of 243. ASSESSMENT: This is a 47-year-old female with uncontrolled and decompensated type 1 insulin-dependent diabetes presenting here with sudden onset of slurred speech and supervening marked hyperglycemic accelerations and was evaluated to be in diabetic ketoacidosis with early ketosis and spurious hyponatremia and hypokalemia with prerenal azotemia and dehydration as noted thereof. She also has diabetic microvascular complications of retinopathy, polyneuropathy, and nephropathy with a renal transplant as noted. PLAN: Plan of management, we will modify the coverage scale using Humalog insulin at a very low-dose to obviate hypoglycemia and to make it also consistent coverage using Humalog insulin as she is also going to be receiving prandial insulin using Humalog at 40 units three times a day as ordered. We will titrate incrementally as indicated to optimize metabolic control. We will continue the Levemir given as 35 units every 12 hours and titrate incrementally to optimize metabolic control. A hemoglobin A1c will be done to confirm her prior glycemic control and baseline thyroid function studies will be ordered. We will obtain serial chemistries and supplement accordingly needed. We will also continue the vigorous IV hydration to fully replenish the lost fluids and electrolytes from the increased osmotic diuresis thereof. We will follow . Marcella Cortez MD
[2018-04-15] MEDS ORDERED: TACROLIMUS 4 MG PO SCH (10:00)
[2018-04-15] MEDS ORDERED: MYCOPHENOLATE 500 MG PO SCH (10:00)
[2018-04-15] MEDS: Enoxaparin 40 mg Syringe SC SCH (10:46)
[2018-04-15] MEDS: Insulin Lispro (humaLOG) LOW Coverage SC SCH ×3 (11:06→22:15)
[2018-04-15] MEDS: Insulin Detemir 100 units/ml Vial (Levemir) SC SCH ×2 (11:07→22:17)
--- NOTE | 2018-04-15 13:40 | CP.PCM.PN ---
<Ken Don - Last Filed: 04/15/18 13:23> Subjective - Date & Time of Evaluation Date of Evaluation: 04/15/18 Time of Evaluation: 07:00 - Subjective Subjective: Medicine Progress Note: Patient seen and examined at bedside. No acute events overnight. Pt states that she is hungry otherwise denies any complaints. 12 Point ROS reviewed and neg other than stated above. Objective - Vital Signs/Intake and Output Vital Signs (last 24 hours): Temp Pulse Resp BP Pulse Ox 98.6 F 86 19 140/62 98 04/14/18 20:00 04/15/18 10:49 04/15/18 06:30 04/15/18 10:49 04/15/18 06:30 Intake and Output: 04/15/18 04/15/18 06:59 18:59 Intake Total 2400 Output Total 500 Balance 1900 - Medications Medications: Current Medications Amlodipine Besylate (Norvasc) 5 mg PO DAILY [facility] Last Admin: 04/15/18 10:49 Dose: 5 mg Aspirin (Aspirin Chewable) 81 mg PO DAILY [facility] Last Admin: 04/15/18 11:14 Dose: 81 mg Atorvastatin Calcium (Lipitor) 10 mg PO DIN [facility] Carvedilol (Coreg) 12.5 mg PO BID [facility] Last Admin: 04/15/18 10:49 Dose: 12.5 mg Enoxaparin Sodium (Lovenox) 40 mg SC DAILY [facility]; Protocol Last Admin: 04/15/18 10:46 Dose: 40 mg Lactated Ringer's (Lactated Ringer's) 1,000 mls @ 200 mls/hr IV .Q5H [facility] Last Admin: 04/15/18 10:44 Dose: 200 mls/hr Insulin Detemir (Levemir) 35 unit SC Q12 [facility] Last Admin: 04/15/18 11:07 Dose: Not Given Insulin Human Lispro (Humalog) 40 units SC AC [facility] Last Admin: 04/15/18 11:06 Dose: Not Given Insulin Human Lispro (Humalog Low) 0 units SC ACHS [facility]; Protocol Last Admin: 04/15/18 11:06 Dose: Not Given Losartan Potassium (Cozaar) 100 mg PO DAILY [facility] Last Admin: 04/15/18 10:48 Dose: 100 mg Mycophenolate Mofetil (Cellcept Cap) 500 mg PO BID [facility] Last Admin: 04/15/18 10:48 Dose: 500 mg Pantoprazole Sodium (Protonix Ec Tab) 40 mg PO ACB DANTE Prednisone (Prednisone Tab) 5 mg PO DAILY [facility] Last Admin: 04/15/18 10:49 Dose: 5 mg Tacrolimus (Prograf Cap) 4 mg PO Q12 [facility] Last Admin: 04/15/18 10:48 Dose: 4 mg - Labs Labs: 04/15/18 06:50 04/15/18 06:50 PT 10.9 SECONDS (9.4-12.5) 04/14/18 16:01 INR 0.96 04/14/18 16:01 APTT 29.8 Seconds (25.1-36.5) 04/14/18 16:01 - Constitutional Appears: No Acute Distress - Head Exam Head Exam: ATRAUMATIC, NORMOCEPHALIC - Eye Exam Eye Exam: EOMI, PERRL - ENT Exam ENT Exam: Mucous Membranes Moist - Respiratory Exam Respiratory Exam: Clear to Ausculation Bilateral. absent: Rales, Wheezes - Cardiovascular Exam Cardiovascular Exam: REGULAR RHYTHM, RRR, +S1, +S2 - GI/Abdominal Exam GI & Abdominal Exam: Soft. absent: Distended, Tenderness - Extremities Exam Extremities Exam: absent: Calf Tenderness - Neurological Exam Neurological Exam: Alert, Awake, Oriented x3 - Psychiatric Exam Psychiatric exam: Normal Mood - Skin Skin Exam: Dry, Intact Assessment and Plan - Assessment and Plan (Free Text) Assessment: Patient is a 47 year old female with a past medical history of right kidney transplant, transient ischemic attack, IDDM, diabetic retinopathy, dyslipidemia, hypertension, asthma who initially presented with complaints of slurred speech found to be in DKA likely 2/2 non compliance. Slurred speech r/o CVA vs TIA - now resolved -Neuro consulted for recs -Started on aspirin -CT head - neg -MRI brain ordered f/u results -F/u carotid echo -F/u echo DKA - resolved -Gap of 18 on admission - now closed -Levemir 35 BID and Humalog 40 AC -Cont ISS - low dose as protocol -Finger sticks q4h -HgA1C - 12.7 -life skills educator -Renal diet -Endo consulted for recs Hilar and Mediastinam lymph node enlargement -CXR shows mass along R mediastinum -CT chest shows mediastinum calcified lymphadenopathy compatible with old granulomatous dx -Recommend outpatient follow up with [facility] regarding possible EBUS Anemia -Peripheral smear -Iron&TIBC, ferritin, retic count -Folate, B12 CKD -Nephrology on consult -Cr is baseline -I&O History of Asthma -Duonebs PRN History of R kidney transplant -Continue tacrolimus and mycophenolate -F/u nephrology consult History of Hypertension -Continue losartan 100 mg, norvasc 5 mg, coreg 20 mg History of Dyslipidemia -Increased statin to Lipitor 40mg daily Case discussed and reviewed in detail with Dr Gerber <Maria Elena Gerber - Last Filed: 04/16/18 12:07> Objective - Vital Signs/Intake and Output Vital Signs (last 24 hours): Temp Pulse Resp BP Pulse Ox 98.6 F 87 67 H 135/85 85 L 04/16/18 05:16 04/16/18 10:00 04/16/18 09:00 04/16/18 09:00 04/16/18 09:00 Intake and Output: 04/16/18 04/16/18 06:59 18:59 Intake Total 1850 Output Total 400 Balance 1450 - Medications Medications: Current Medications Albuterol/Ipratropium (Duoneb 3 Mg/0.5 Mg (3 Ml) Ud) 3 ml IH Q2H PRN PRN Reason: Shortness of Breath Last Admin: 04/16/18 08:18 Dose: 3 ml Amlodipine Besylate (Norvasc) 5 mg PO DAILY [facility] Last Admin: 04/16/18 10:03 Dose: 5 mg Aspirin (Aspirin Chewable) 81 mg PO DAILY [facility] Last Admin: 04/16/18 10:03 Dose: 81 mg Atorvastatin Calcium (Lipitor) 40 mg PO DIN [facility] Last Admin: 04/15/18 17:27 Dose: 40 mg Benzonatate (Tessalon Perles) 100 mg PO TID [facility] Last Admin: 04/16/18 10:03 Dose: 100 mg Carvedilol (Coreg) 12.5 mg PO BID [facility] Last Admin: 04/16/18 10:03 Dose: 12.5 mg Enoxaparin Sodium (Lovenox) 40 mg SC DAILY [facility]; Protocol Last Admin: 04/16/18 10:03 Dose: 40 mg Lactated Ringer's (Lactated Ringer's) 1,000 mls @ 60 mls/hr IV .[id number] [facility] Insulin Detemir (Levemir) 50 unit SC HS [facility] Insulin Human Lispro (Humalog Low) 0 units SC ACHS [facility]; Protocol Last Admin: 04/16/18 08:09 Dose: Not Given Insulin Human Lispro (Humalog) 16 units SC AC [facility] Losartan Potassium (Cozaar) 100 mg PO DAILY [facility] Last Admin: 04/16/18 10:02 Dose: 100 mg Mycophenolate Mofetil (Cellcept Cap) 500 mg PO BID [facility] Last Admin: 04/16/18 10:03 Dose: 500 mg Pantoprazole Sodium (Protonix Ec Tab) 40 mg PO ACB [facility] Last Admin: 04/16/18 08:08 Dose: 40 mg Prednisone (Prednisone Tab) 5 mg PO DAILY [facility] Last Admin: 04/16/18 10:03 Dose: 5 mg Tacrolimus (Prograf Cap) 4 mg PO Q12 [facility] Last Admin: 04/16/18 10:02 Dose: 4 mg - Labs Labs: 04/16/18 05:00 04/16/18 05:00 PT 10.9 SECONDS (9.4-12.5) 04/14/18 16:01 INR 0.96 04/14/18 16:01 APTT 29.8 Seconds (25.1-36.5) 04/14/18 16:01 Attending/Attestation - Attestation I have personally seen and examined this patient.: Yes I have fully participated in the care of the patient.: Yes I have reviewed all pertinent clinical information, including history, physical exam and plan: Yes Notes (Text): 04/16/18 12:07 Medical record note made by the resident after discussion with my direction and input after the patient was personally seen and examined by me. I have reviewed the chart and agree that the record accurately reflects by personal performance of the history, physical exam, data review, and medical decision-making, in the course for the patient. I have also personally directed the plan of care
--- NOTE | 2018-04-15 15:43 | CON ---
DATE: 04/15/2018 REASON FOR CONSULTATION: Kidney transplant status, altered mental status, DKA. HISTORY OF PRESENT ILLNESS: A 47-year-old young woman known to me from outpatient followup. The patient was brought to the emergency room yesterday because of slurred speech, altered mental status, weakness and cramping of the left hand. In the emergency room, she was found to be hypertensive. Initially, blood pressure was 157/84. She was found to be afebrile. Her blood work showed a glucose of greater than 500. Her pH was found to be 7.19. The patient was admitted to the ICU. She is currently seen in the ICU. On questioning, she reports that she was not taking her insulin for almost a week because she, according to the , gets the insulin. Her insurance was not covering to pay for the insulin. She denies any cough. She denies any fevers. She denies any chills. She denies any shortness of breath. Her altered mental status and her weakness of her left arm disappeared spontaneously within minutes. Cold Stroke was activated in the emergency room. CT head showed no acute intracranial findings. The patient was found to be in DKA. The patient was hydrated aggressively. She was given potassium supplementation. She was placed on insulin drip. PAST MEDICAL AND SURGICAL HISTORY: IDDM, diabetic retinopathy, blindness of the right eye, hypertension, ESRD, living-related transplant, acute cellular rejection, chronic kidney disease stage III T, anemia of chronic kidney disease, asthma, obesity, sleep apnea, secondary hyperparathyroidism. FAMILY HISTORY: Diabetes and hypertension. SOCIAL HISTORY: No smoking, no alcohol use, no IV drug abuse. ALLERGIES: Latex. MEDICATIONS AT HOME: Prograf 4 mg every 12 hours, CellCept 500 every 12 hours, amlodipine 5, losartan 100, prednisone 5, Coreg CR 10 mg daily, insulin, Protonix. REVIEW OF SYSTEMS: All systems are reviewed, pertinent positives as mentioned in history of presenting illness, rest unremarkable. PHYSICAL EXAMINATION: GENERAL: Middle-aged lady, lying in bed in the ICU. VITAL SIGNS: Blood pressure 126/67, heart rate 89, respiratory rate 24, temperature 98.6. HEENT: Normocephalic, atraumatic, corneal opacity in the right eye, positive pallor. NECK: Supple, no JVD. LUNGS: Bilateral equal entry, bilateral equal expansion, bilateral rhonchi. CARDIAC: S1, S2, regular rate and rhythm, no murmur, no rub. ABDOMEN: Obese, distended, soft, nontender, bowel sounds present. EXTREMITIES: Trace lower extremity edema. INTAKE AND OUTPUT: 2400/500. LABORATORY DATA: WBC 9.3, hemoglobin 9.8, hematocrit 29, platelets 217. Sodium 139, potassium 3.8, chloride 108, CO2 of 23, BUN 19, creatinine 1.5, glucose 277, calcium 9.3, AST 15, ALT 16, albumin 3.3. Urinalysis, light yellow, clear, pH 6.0, specific 1010 protein 100, glucose greater than 1000, blood small, leukocyte esterase trace. AB.37 pH, pCO2 of 33, pO2 of 87. CURRENT MEDICATIONS: Aspirin, CellCept 500 b.i.d., Coreg 12.5 b.i.d., Cozaar 100, insulin, Ringer's Lactate at 200, Levemir, Lipitor, Lovenox, amlodipine 5, prednisone 5, Prograf 4 mg every 12 hours, Protonix. ASSESSMENT/PLAN: 1. Diabetic ketoacidosis, severe acidosis, hypokalemia. 2. Transient ischemic attack? 3. Insulin-dependent diabetes mellitus. 4. Hypertension. 5. Living related transplant with chronic kidney disease stage III T. 6. Obesity. 7. Anemia of chronic kidney disease. 8. Hypertension. PLAN: 1. Acidosis, corrected, pH normal now, lower fluids? 2. Restart antihypertensives, Cozaar 100, Coreg CR 10, amlodipine 5. 3. Restarted anti-rejection meds, Prograf 4 b.i.d., CellCept 500 b.i.d., prednisone 5. 4. Monitor urine output closely. 5. Avoid nephrotoxins. 6. ash pit worker to assist with medications. 7. Case discussed with Dr. Santana, case discussed with the patient at bedside, case discussed with ICU nursing staff, case discussed with Dr. Gerber. More than 35 minutes spent in the care of this critically ill patient. Malka Stephen MD
--- NOTE | 2018-04-15 15:43 | CP.PCM.CON ---
History of Present Illness - History of Present Illness History of Present Illness: Neurology Consult Note for Dr. Jeffery Reason for Consultation: Code stroke, slurred speech HPI: Patient is a 47 yo F with PMH of right kidney transplant, transient ischemic attack, IDDM (diagnosed in [facility]), diabetic retinopathy, dysl ipidemia, hypertension, asthma who presented to [facility] [place] [facility] complaining of slurred speech. Patient admitted to polydipsia, polyuria, difficulty finding her words. Patient was worried with her history of TIA, that she may be having another. In the ED, patient was found in DKA and admitted to ICU on insulin gtt. Patient denied CP, SOB, n/v/d, abdominal pain, fever, chills, HICKS, or dizziness. Neurology consulted to rule out CVA. PMH: right kidney transplant, transient ischemic attack, IDDM (diagnosed in [facility]), diabetic retinopathy, dyslipidemia, hypertension, asthma Surg: Right kidney transplant in 2007, 7 eye surgeries, Port and fistula for dialysis patient had for 10 months prior to transplant, myomectomy, lumpectomy (benign mass removed from left breast) All: Latex FHx: Significant for DM SH: 3 year history of cigarette smoking, started in 1998, quit in 2001. Denies alcohol or drug use. Review of Systems - Review of Systems All systems: reviewed and no additional remarkable complaints except (12 point ROS reviewed and is negative other than what is stated in HPI.) Past Patient History - Infectious Disease Hx of Infectious Diseases: None - Past Social History Smoking Status: Never Smoked - CARDIAC Hx Hypertension: Yes - PULMONARY Hx Asthma: Yes - NEUROLOGICAL Hx Transient Ischemic Attacks (TIA): Yes - HEENT Hx Blind: Yes (R eye legalky blind) - RENAL Hx Chronic Kidney Disease: Yes Other/Comment: Renal transplant - ENDOCRINE/METABOLIC Hx Diabetes Mellitus Type 2: Yes - MUSCULOSKELETAL/RHEUMATOLOGICAL Hx Falls: No - PSYCHIATRIC Hx Substance Use: No - SURGICAL HISTORY Hx Kidney Transplant: Yes (R side) - ANESTHESIA Hx Anesthesia: Yes Hx Anesthesia Reactions: No Hx Malignant Hyperthermia: No Meds Allergies/Adverse Reactions: Allergies Allergy/AdvReac Type Severity Reaction Status Date / Time latex Allergy RASH Verified 04/14/18 15:45 - Medications Medications: Current Medications Amlodipine Besylate (Norvasc) 5 mg PO DAILY [facility] Last Admin: 04/15/18 10:49 Dose: 5 mg Aspirin (Aspirin Chewable) 81 mg PO DAILY [facility] Last Admin: 04/15/18 11:14 Dose: 81 mg Atorvastatin Calcium (Lipitor) 40 mg PO DIN [facility] Carvedilol (Coreg) 12.5 mg PO BID [facility] Last Admin: 04/15/18 10:49 Dose: 12.5 mg Enoxaparin Sodium (Lovenox) 40 mg SC DAILY [facility]; Protocol Last Admin: 04/15/18 10:46 Dose: 40 mg Lactated Ringer's (Lactated Ringer's) 1,000 mls @ 100 mls/hr IV .Q10H [facility] Insulin Detemir (Levemir) 35 unit SC Q12 [facility] Last Admin: 04/15/18 11:07 Dose: Not Given Insulin Human Lispro (Humalog Low) 0 units SC ACHS [facility]; Protocol Last Admin: 04/15/18 11:06 Dose: Not Given Insulin Human Lispro (Humalog) 12 units SC AC [facility] Losartan Potassium (Cozaar) 100 mg PO DAILY [facility] Last Admin: 04/15/18 10:48 Dose: 100 mg Mycophenolate Mofetil (Cellcept Cap) 500 mg PO BID [facility] Last Admin: 04/15/18 10:48 Dose: 500 mg Pantoprazole Sodium (Protonix Ec Tab) 40 mg PO ACB [facility] Prednisone (Prednisone Tab) 5 mg PO DAILY [facility] Last Admin: 04/15/18 10:49 Dose: 5 mg Tacrolimus (Prograf Cap) 4 mg PO Q12 [facility] Last Admin: 04/15/18 10:48 Dose: 4 mg Physical Exam - Constitutional Appears: No Acute Distress - Head Exam Head Exam: NORMAL INSPECTION - Eye Exam Eye Exam: EOMI, Normal appearance, PERRL Pupil Exam: NORMAL ACCOMODATION - ENT Exam ENT Exam: Mucous Membranes Moist, Normal Exam - Neck Exam Neck exam: Positive for: Normal Inspection - Respiratory Exam Respiratory Exam: Clear to Auscultation Bilateral. absent: Rales, Rhonchi, Wheezes - Cardiovascular Exam Cardiovascular Exam: REGULAR RHYTHM. absent: Diastolic murmur, Gallop, Rubs, Systolic Murmur - GI/Abdominal Exam GI & Abdominal Exam: Soft. absent: Guarding, Rebound, Tenderness - Extremities Exam Extremities exam: Positive for: normal inspection - Back Exam Back exam: NORMAL INSPECTION - Neurological Exam Neurological exam: Alert, CN II-XII Intact, Oriented x3, Reflexes Normal Additional comments: UE and LE strength intact, sensation intact throughout, cognitive executive function intact, no dysmetria, proprioception intact, no aphasia - Psychiatric Exam Psychiatric exam: Normal Affect, Normal Mood - Skin Skin Exam: Normal Color Results - Vital Signs Recent Vital Signs: Last Vital Signs Temp 98.6 F 04/14/18 20:00 Pulse 79 04/15/18 14:00 Resp 37 H 04/15/18 13:00 BP 115/46 L 04/15/18 13:00 Pulse Ox 96 04/15/18 13:00 - Labs Result Diagrams: 04/15/18 06:50 04/15/18 06:50 Labs: Laboratory Results - last 24 hr 04/14/18 04/14/18 04/14/18 15:46 16:01 16:01 WBC 8.9 RBC 4.10 Hgb 10.9 L Hct 33.2 L MCV 81.0 MCH 26.6 MCHC 32.8 RDW 15.1 H Plt Count 271 MPV 11.2 H Gran % 79.4 H Lymph % (Auto) 17.4 L [place] % (Auto) 2.6 Eos % (Auto) 0.4 L Baso % (Auto) 0.2 Gran # 7.08 H Lymph # (Auto) 1.6 [place] # (Auto) 0.2 Eos # (Auto) 0.0 Baso # (Auto) 0.02 Differential Comment Retic Count PT 10.9 INR 0.96 APTT 29.8 pCO2 pO2 HCO3 ABG pH ABG Total CO2 ABG O2 Saturation ABG O2 Content ABG Base Excess ABG Hemoglobin ABG Carboxyhemoglobin POC ABG HHb (Measured) ABG Methemoglobin ABG O2 Capacity VBG pH VBG pCO2 VBG HCO3 VBG Total CO2 VBG O2 Sat (Calc) VBG Base Excess VBG Potassium Hgb O2 Saturation Glucose Lactate FiO2 Sodium Potassium Chloride Carbon Dioxide Anion Gap BUN Creatinine Est GFR ( Amer) Est GFR (Non-Af Amer) POC Glucose (mg/dL) > 500 H* Random Glucose Hemoglobin A1c Calcium Phosphorus Magnesium Iron TIBC % Saturation Ferritin Total Bilirubin AST ALT Alkaline Phosphatase Troponin I Total Protein Albumin Globulin Albumin/Globulin Ratio Triglycerides Cholesterol LDL Cholesterol Direct HDL Cholesterol Vitamin B12 Procalcitonin Venous Blood Potassium Urine Color Urine Appearance Urine pH Ur Specific [place] Urine Protein Urine Glucose (UA) Urine Ketones Urine Blood Urine Nitrate Urine Bilirubin Urine Urobilinogen Ur Leukocyte Esterase Urine RBC Urine WBC Ur Epithelial Cells Urine Bacteria Urine HCG, Qual B-Hydroxybutyrate Blood Type Blood Type Confirm Antibody Screen BBK History Checked 04/14/18 04/14/18 04/14/18 16:01 16:01 16:01 WBC RBC Hgb Hct MCV MCH MCHC RDW Plt Count MPV Gran % Lymph % (Auto) [place] % (Auto) Eos % (Auto) Baso % (Auto) Gran # Lymph # (Auto) [place] # (Auto) Eos # (Auto) Baso # (Auto) Differential Comment See pathology report Retic Count PT INR APTT pCO2 pO2 HCO3 ABG pH ABG Total CO2 ABG O2 Saturation ABG O2 Content ABG Base Excess ABG Hemoglobin ABG Carboxyhemoglobin POC ABG HHb (Measured) ABG Methemoglobin ABG O2 Capacity VBG pH VBG pCO2 VBG HCO3 VBG Total CO2 VBG O2 Sat (Calc) VBG Base Excess VBG Potassium Hgb O2 Saturation Glucose Lactate FiO2 Sodium 130 L Potassium 3.3 L Chloride 94 L Carbon Dioxide 18 L Anion Gap 21 H BUN 25 H Creatinine 2.0 H Est GFR ( Amer) 32 Est GFR (Non-Af Amer) 26 POC Glucose (mg/dL) Random Glucose 847 H* Hemoglobin A1c 12.7 H Calcium 9.8 Phosphorus Magnesium Iron TIBC % Saturation Ferritin Total Bilirubin 0.4 AST 20 ALT 19 Alkaline Phosphatase 182 H Troponin I < 0.01 Total Protein 8.0 Albumin 4.2 Globulin 3.7 Albumin/Globulin Ratio 1.1 Triglycerides 363 H Cholesterol 248 H LDL Cholesterol Direct 147 H HDL Cholesterol 36 Vitamin B12 Procalcitonin Venous Blood Potassium Urine Color Urine Appearance Urine pH Ur Specific [place] Urine Protein Urine Glucose (UA) Urine Ketones Urine Blood Urine Nitrate Urine Bilirubin Urine Urobilinogen Ur Leukocyte Esterase Urine RBC Urine WBC Ur Epithelial Cells Urine Bacteria Urine HCG, Qual B-Hydroxybutyrate 0.21 Blood Type Blood Type Confirm Antibody Screen BBK History Checked 04/14/18 04/14/18 04/14/18 16:56 18:27 18:51 WBC RBC Hgb Hct MCV MCH MCHC RDW Plt Count MPV Gran % Lymph % (Auto) [place] % (Auto) Eos % (Auto) Baso % (Auto) Gran # Lymph # (Auto) [place] # (Auto) Eos # (Auto) Baso # (Auto) Differential Comment Retic Count PT INR APTT pCO2 pO2 106 H HCO3 ABG pH ABG Total CO2 ABG O2 Saturation ABG O2 Content ABG Base Excess ABG Hemoglobin ABG Carboxyhemoglobin POC ABG HHb (Measured) ABG Methemoglobin ABG O2 Capacity VBG pH 7.19 L* VBG pCO2 46.0 VBG HCO3 17.6 L VBG Total CO2 19.0 L VBG O2 Sat (Calc) 98.8 H VBG Base Excess -10.4 L VBG Potassium 3.4 L Hgb O2 Saturation Glucose 704 H* Lactate 5.9 H* FiO2 21.0 Sodium 132.0 Potassium Chloride 95.0 L Carbon Dioxide Anion Gap BUN Creatinine Est GFR ( Amer) Est GFR (Non-Af Amer) POC Glucose (mg/dL) 299 H Random Glucose Hemoglobin A1c Calcium Phosphorus Magnesium Iron TIBC % Saturation Ferritin Total Bilirubin AST ALT Alkaline Phosphatase Troponin I Total Protein Albumin Globulin Albumin/Globulin Ratio Triglycerides Cholesterol LDL Cholesterol Direct HDL Cholesterol Vitamin B12 Procalcitonin Venous Blood Potassium 3.4 L Urine Color Light yellow Urine Appearance Clear Urine pH 6.0 Ur Specific [place] 1.010 Urine Protein 100 H Urine Glucose (UA) >=1000 Urine Ketones Negative Urine Blood Small H Urine Nitrate Negative Urine Bilirubin Negative Urine Urobilinogen 0.2 Ur Leukocyte Esterase Trace H Urine RBC 0 - 2 Urine WBC 2 - 5 Ur Epithelial Cells None Urine Bacteria Trace Urine HCG, Qual B-Hydroxybutyrate Blood Type Blood Type Confirm Antibody Screen BBK History Checked 04/14/18 04/14/18 04/14/18 19:22 19:22 20:28 WBC RBC Hgb Hct MCV MCH MCHC RDW Plt Count MPV Gran % Lymph % (Auto) [place] % (Auto) Eos % (Auto) Baso % (Auto) Gran # Lymph # (Auto) [place] # (Auto) Eos # (Auto) Baso # (Auto) Differential Comment Retic Count PT INR APTT pCO2 pO2 HCO3 ABG pH ABG Total CO2 ABG O2 Saturation ABG O2 Content ABG Base Excess ABG Hemoglobin ABG Carboxyhemoglobin POC ABG HHb (Measured) ABG Methemoglobin ABG O2 Capacity VBG pH VBG pCO2 VBG HCO3 VBG Total CO2 VBG O2 Sat (Calc) VBG Base Excess VBG Potassium Hgb O2 Saturation Glucose Lactate FiO2 Sodium 136 Potassium 3.7 Chloride 103 Carbon Dioxide 21 Anion Gap 16 BUN 24 H Creatinine 1.9 H Est GFR ( Amer) 34 Est GFR (Non-Af Amer) 28 POC Glucose (mg/dL) 215 H Random Glucose 300 H Hemoglobin A1c Calcium 9.8 Phosphorus 2.8 Magnesium 1.9 Iron TIBC % Saturation Ferritin Total Bilirubin AST ALT Alkaline Phosphatase Troponin I Total Protein Albumin Globulin Albumin/Globulin Ratio Triglycerides Cholesterol LDL Cholesterol Direct HDL Cholesterol Vitamin B12 Procalcitonin 0.11 L Venous Blood Potassium Urine Color Urine Appearance Urine pH Ur Specific [place] Urine Protein Urine Glucose (UA) Urine Ketones Urine Blood Urine Nitrate Urine Bilirubin Urine Urobilinogen Ur Leukocyte Esterase Urine RBC Urine WBC Ur Epithelial Cells Urine Bacteria Urine HCG, Qual B-Hydroxybutyrate Blood Type Blood Type Confirm Antibody Screen BBK History Checked 04/14/18 04/14/18 04/14/18 21:56 22:10 22:10 WBC RBC Hgb Hct MCV MCH MCHC RDW Plt Count MPV Gran % Lymph % (Auto) [place] % (Auto) Eos % (Auto) Baso % (Auto) Gran # Lymph # (Auto) [place] # (Auto) Eos # (Auto) Baso # (Auto) Differential Comment Retic Count PT INR APTT pCO2 pO2 33 HCO3 ABG pH ABG Total CO2 ABG O2 Saturation ABG O2 Content ABG Base Excess ABG Hemoglobin ABG Carboxyhemoglobin POC ABG HHb (Measured) ABG Methemoglobin ABG O2 Capacity VBG pH 7.34 VBG pCO2 37.0 L VBG HCO3 20.0 L VBG Total CO2 21.1 L VBG O2 Sat (Calc) 72.8 H VBG Base Excess -5.2 L VBG Potassium 4.0 Hgb O2 Saturation Glucose 261 H Lactate 3.7 H FiO2 21.0 Sodium 136.0 133 Potassium 4.9 Chloride 104.0 106 Carbon Dioxide 19 L Anion Gap 13 BUN 19 Creatinine 1.5 H Est GFR ( Amer) 45 Est GFR (Non-Af Amer) 37 POC Glucose (mg/dL) Random Glucose 221 H Hemoglobin A1c Calcium 8.7 Phosphorus Magnesium Iron 69 TIBC 208 L % Saturation 33 Ferritin 464.0 Total Bilirubin AST ALT Alkaline Phosphatase Troponin I < 0.01 Total Protein Albumin Globulin Albumin/Globulin Ratio Triglycerides Cholesterol LDL Cholesterol Direct HDL Cholesterol Vitamin B12 896 Procalcitonin Venous Blood Potassium 4.0 Urine Color Urine Appearance Urine pH Ur Specific [place] Urine Protein Urine Glucose (UA) Urine Ketones Urine Blood Urine Nitrate Urine Bilirubin Urine Urobilinogen Ur Leukocyte Esterase Urine RBC Urine WBC Ur Epithelial Cells Urine Bacteria Urine HCG, Qual B-Hydroxybutyrate Blood Type Blood Type Confirm Antibody Screen BBK History Checked 04/14/18 04/15/18 04/15/18 22:10 00:16 01:35 WBC RBC Hgb Hct MCV MCH MCHC RDW Plt Count MPV Gran % Lymph % (Auto) [place] % (Auto) Eos % (Auto) Baso % (Auto) Gran # Lymph # (Auto) [place] # (Auto) Eos # (Auto) Baso # (Auto) Differential Comment Retic Count 1.87 H PT INR APTT pCO2 33 L pO2 87.0 HCO3 19.1 L ABG pH 7.37 ABG Total CO2 20.1 L ABG O2 Saturation 99.3 H ABG O2 Content 12.8 L ABG Base Excess -5.5 L ABG Hemoglobin 9.4 L ABG Carboxyhemoglobin 2.2 H POC ABG HHb (Measured) 0.7 ABG Methemoglobin 1.2 ABG O2 Capacity 12.9 L VBG pH VBG pCO2 VBG HCO3 VBG Total CO2 VBG O2 Sat (Calc) VBG Base Excess VBG Potassium Hgb O2 Saturation 95.9 Glucose Lactate FiO2 21.0 Sodium Potassium Chloride Carbon Dioxide Anion Gap BUN Creatinine Est GFR ( Amer) Est GFR (Non-Af Amer) POC Glucose (mg/dL) 359 H Random Glucose Hemoglobin A1c Calcium Phosphorus Magnesium Iron TIBC % Saturation Ferritin Total Bilirubin AST ALT Alkaline Phosphatase Troponin I Total Protein Albumin Globulin Albumin/Globulin Ratio Triglycerides Cholesterol LDL Cholesterol Direct HDL Cholesterol Vitamin B12 Procalcitonin Venous Blood Potassium Urine Color Urine Appearance Urine pH Ur Specific [place] Urine Protein Urine Glucose (UA) Urine Ketones Urine Blood Urine Nitrate Urine Bilirubin Urine Urobilinogen Ur Leukocyte Esterase Urine RBC Urine WBC Ur Epithelial Cells Urine Bacteria Urine HCG, Qual B-Hydroxybutyrate Blood Type Blood Type Confirm Antibody Screen BBK History Checked 04/15/18 04/15/18 04/15/18 02:07 02:07 04:07 WBC RBC Hgb Hct MCV MCH MCHC RDW Plt Count MPV Gran % Lymph % (Auto) [place] % (Auto) Eos % (Auto) Baso % (Auto) Gran # Lymph # (Auto) [place] # (Auto) Eos # (Auto) Baso # (Auto) Differential Comment Retic Count PT INR APTT pCO2 pO2 89 H HCO3 ABG pH ABG Total CO2 ABG O2 Saturation ABG O2 Content ABG Base Excess ABG Hemoglobin ABG Carboxyhemoglobin POC ABG HHb (Measured) ABG Methemoglobin ABG O2 Capacity VBG pH 7.32 VBG pCO2 35.0 L VBG HCO3 18.0 L VBG Total CO2 19.1 L VBG O2 Sat (Calc) 99.0 H VBG Base Excess -7.3 L VBG Potassium 3.9 Hgb O2 Saturation Glucose 399 H Lactate 2.9 H FiO2 21.0 Sodium 133 134.0 Potassium 4.0 Chloride 108 H 105.0 Carbon Dioxide 17 L Anion Gap 12 BUN 19 Creatinine 1.5 H Est GFR ( Amer) 45 Est GFR (Non-Af Amer) 37 POC Glucose (mg/dL) 335 H Random Glucose 343 H* D Hemoglobin A1c Calcium 8.4 Phosphorus Magnesium Iron TIBC % Saturation Ferritin Total Bilirubin AST ALT Alkaline Phosphatase Troponin I Total Protein Albumin Globulin Albumin/Globulin Ratio Triglycerides Cholesterol LDL Cholesterol Direct HDL Cholesterol Vitamin B12 Procalcitonin Venous Blood Potassium 3.9 Urine Color Urine Appearance Urine pH Ur Specific [place] Urine Protein Urine Glucose (UA) Urine Ketones Urine Blood Urine Nitrate Urine Bilirubin Urine Urobilinogen Ur Leukocyte Esterase Urine RBC Urine WBC Ur Epithelial Cells Urine Bacteria Urine HCG, Qual B-Hydroxybutyrate Blood Type Blood Type Confirm Antibody Screen BBK History Checked 04/15/18 04/15/18 04/15/18 05:56 06:50 06:50 WBC 9.3 RBC 3.69 Hgb 9.8 L Hct 29.2 L MCV 79.1 L MCH 26.6 MCHC 33.6 RDW 15.4 H Plt Count 217 MPV 10.3 Gran % 60.0 Lymph % (Auto) 34.4 [place] % (Auto) 3.8 Eos % (Auto) 1.6 Baso % (Auto) 0.2 Gran # 5.59 Lymph # (Auto) 3.2 [place] # (Auto) 0.4 Eos # (Auto) 0.2 Baso # (Auto) 0.02 Differential Comment Retic Count PT INR APTT pCO2 pO2 HCO3 ABG pH ABG Total CO2 ABG O2 Saturation ABG O2 Content ABG Base Excess ABG Hemoglobin ABG Carboxyhemoglobin POC ABG HHb (Measured) ABG Methemoglobin ABG O2 Capacity VBG pH VBG pCO2 VBG HCO3 VBG Total CO2 VBG O2 Sat (Calc) VBG Base Excess VBG Potassium Hgb O2 Saturation Glucose Lactate FiO2 Sodium Potassium Chloride Carbon Dioxide Anion Gap BUN Creatinine Est GFR ( Amer) Est GFR (Non-Af Amer) POC Glucose (mg/dL) 278 H Random Glucose Hemoglobin A1c Calcium Phosphorus Magnesium Iron TIBC % Saturation Ferritin Total Bilirubin AST ALT Alkaline Phosphatase Troponin I Total Protein Albumin Globulin Albumin/Globulin Ratio Triglycerides Cholesterol LDL Cholesterol Direct HDL Cholesterol Vitamin B12 Procalcitonin Venous Blood Potassium Urine Color Urine Appearance Urine pH Ur Specific [place] Urine Protein Urine Glucose (UA) Urine Ketones Urine Blood Urine Nitrate Urine Bilirubin Urine Urobilinogen Ur Leukocyte Esterase Urine RBC Urine WBC Ur Epithelial Cells Urine Bacteria Urine HCG, Qual B-Hydroxybutyrate Blood Type O POSITIVE Blood Type Confirm Antibody Screen Negative BBK History Checked No verified bt 04/15/18 04/15/18 04/15/18 06:50 07:41 08:00 WBC RBC Hgb Hct MCV MCH MCHC RDW Plt Count MPV Gran % Lymph % (Auto) [place] % (Auto) Eos % (Auto) Baso % (Auto) Gran # Lymph # (Auto) [place] # (Auto) Eos # (Auto) Baso # (Auto) Differential Comment Retic Count PT INR APTT pCO2 pO2 HCO3 ABG pH ABG Total CO2 ABG O2 Saturation ABG O2 Content ABG Base Excess ABG Hemoglobin ABG Carboxyhemoglobin POC ABG HHb (Measured) ABG Methemoglobin ABG O2 Capacity VBG pH VBG pCO2 VBG HCO3 VBG Total CO2 VBG O2 Sat (Calc) VBG Base Excess VBG Potassium Hgb O2 Saturation Glucose Lactate FiO2 Sodium 139 Potassium 3.8 Chloride 108 H Carbon Dioxide 23 Anion Gap 11 BUN 19 Creatinine 1.5 H Est GFR ( Amer) 45 Est GFR (Non-Af Amer) 37 POC Glucose (mg/dL) 243 H Random Glucose 277 H Hemoglobin A1c Calcium 9.3 Phosphorus Magnesium Iron TIBC % Saturation Ferritin Total Bilirubin 0.2 AST 16 ALT 15 Alkaline Phosphatase 105 Troponin I Total Protein 6.5 Albumin 3.3 Globulin 3.3 Albumin/Globulin Ratio 1.0 L Triglycerides 228 H Cholesterol 200 LDL Cholesterol Direct 127 HDL Cholesterol 32 Vitamin B12 Procalcitonin Venous Blood Potassium Urine Color Urine Appearance Urine pH Ur Specific [place] Urine Protein Urine Glucose (UA) Urine Ketones Urine Blood Urine Nitrate Urine Bilirubin Urine Urobilinogen Ur Leukocyte Esterase Urine RBC Urine WBC Ur Epithelial Cells Urine Bacteria Urine HCG, Qual B-Hydroxybutyrate Blood Type Blood Type Confirm O POSITIVE Antibody Screen BBK History Checked 04/15/18 04/15/18 09:00 11:05 WBC RBC Hgb Hct MCV MCH MCHC RDW Plt Count MPV Gran % Lymph % (Auto) [place] % (Auto) Eos % (Auto) Baso % (Auto) Gran # Lymph # (Auto) [place] # (Auto) Eos # (Auto) Baso # (Auto) Differential Comment Retic Count PT INR APTT pCO2 pO2 HCO3 ABG pH ABG Total CO2 ABG O2 Saturation ABG O2 Content ABG Base Excess ABG Hemoglobin ABG Carboxyhemoglobin POC ABG HHb (Measured) ABG Methemoglobin ABG O2 Capacity VBG pH VBG pCO2 VBG HCO3 VBG Total CO2 VBG O2 Sat (Calc) VBG Base Excess VBG Potassium Hgb O2 Saturation Glucose Lactate FiO2 Sodium Potassium Chloride Carbon Dioxide Anion Gap BUN Creatinine Est GFR ( Amer) Est GFR (Non-Af Amer) POC Glucose (mg/dL) 51 L Random Glucose Hemoglobin A1c Calcium Phosphorus Magnesium Iron TIBC % Saturation Ferritin Total Bilirubin AST ALT Alkaline Phosphatase Troponin I Total Protein Albumin Globulin Albumin/Globulin Ratio Triglycerides Cholesterol LDL Cholesterol Direct HDL Cholesterol Vitamin B12 Procalcitonin Venous Blood Potassium Urine Color Urine Appearance Urine pH Ur Specific [place] Urine Protein Urine Glucose (UA) Urine Ketones Urine Blood Urine Nitrate Urine Bilirubin Urine Urobilinogen Ur Leukocyte Esterase Urine RBC Urine WBC Ur Epithelial Cells Urine Bacteria Urine HCG, Qual Negative B-Hydroxybutyrate Blood Type Blood Type Confirm Antibody Screen BBK History Checked Assessment & Plan - Assessment and Plan (Free Text) Assessment: 47 yo F with PMH of right kidney transplant, transient ischemic attack, IDDM (diagnosed in [facility]), diabetic retinopathy, dyslipidemia, hypertension, asthma admitted to ICU for DKA. Neurology consulted to r/o CVA. Initial head CT of the head was negative Plan: - MRI brain ordered, if negative patient is clear from neuro standpoint - Recommend OOB to chair - Cont DKA management per primary Patient seen and discussed in detail with Dr. Jeffery. Almas Rust, DO PGY2
--- NOTE | 2018-04-15 16:53 | MRI ---
Date of service: 04/15/2018 PROCEDURE: MRI BRAIN WITHOUT CONTRAST HISTORY: Code stroke. COMPARISON: Comparison made with prior CT scan of the brain dated 04/14/2018.. TECHNIQUE: Multiplanar, multisequence MR images of the brain were obtained without intravenous contrast enhancement. FINDINGS: HEMORRHAGE: No acute parenchymal, subarachnoid or extra-axial hemorrhage. No evidence of hemosiderin deposition identified on gradient echo weighted sequence. DWI: No evidence of an acute or early subacute infarction seen on diffusion imaging.. BRAIN PARENCHYMA: Mild diffuse/confluent chronic periventricular white matter microvascular ischemic changes seen extending peripherally into the deep and subcortical white matter both cerebral hemispheres. Additionally, there are few tiny lacunar-type infarcts the scattered about the deep and subcortical white matter bilaterally as well. Ventricular and sulcal size are within range of normal for this patient's stated age. No obvious parenchymal nor extra-axial masses or collections identified on this noncontrast study. VENTRICLES: No obstructive hydrocephalus. CRANIUM: Unremarkable. 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 PARANASAL SINUSES/MASTOIDS: Clear VASCULAR SYSTEM: Visualized major vascular flow voids at skull base patent.. OTHER FINDINGS: Redemonstrated is right IMPRESSION: No evidence of acute intracranial hemorrhage or infarction. Mild chronic white matter microvascular ischemic changes as described.
--- NOTE | 2018-04-15 17:06 | US ---
PROCEDURE: Bilateral carotid artery duplex ultrasound HISTORY: Carotid stenosis CVA PHYSICIAN(S): Andrey Vo MD. TECHNIQUE: Duplex sonography and color-flow Doppler were used to evaluate the carotid bifurcations and limited segments of the vertebral arteries bilaterally. FINDINGS: There is mild smooth hypoechoic plaque noted at the carotid bifurcations bilaterally. The peak systolic velocity in the proximal right internal carotid artery is 78 cm/sec. This corresponds to a 20 to 39% proximal right ICA stenosis. Normal systolic velocities are noted in the proximal right external carotid artery. There is antegrade flow in the right vertebral artery. The peak systolic velocity in the proximal left internal carotid artery is 79 cm/sec. This corresponds to a 20 to 39% proximal left ICA stenosis. Normal systolic velocities are noted in the proximal left external carotid artery. There is antegrade flow in the left vertebral artery. IMPRESSION: 1. Bilateral 20-39% proximal ICA stenoses. 2. Antegrade flow in both vertebral arteries.
[2018-04-16] MEDS: Lactated Ringer's 1,000 ML IV SCH (02:24)
[2018-04-16 06:07] LABS: HEMOGLOBIN 9.2 g/dL (12.0-16.0); RBC 3.42 10^6/uL (3.5-6.1); WHITE BLOOD COUNT 7.4 10^3/uL (4.5-11.0)
[2018-04-16 06:08] LABS: GRAN % 61.3 % (50.0-68.0); MEAN CELL VOLUME 82.5 fl (80.0-105.0); MEAN CORPUSCULAR HEMOGLOBIN 26.9 pg (25.0-35.0); MEAN CORPUSCULAR HGB CONC 32.6 g/dl (31.0-37.0); MEAN PLATELET VOLUME 11.5 fl (7.0-11.0); RED CELL DISTRIBUTION WIDTH 15.8 % (11.5-14.5)
[2018-04-16 06:09] LABS: BASO # 0.02 K/mm3 (0.0-2.0); BASO % 0.3 % (0.0-3.0); EOS # 0.1 (0.0-0.7); EOS % 1.9 % (1.5-5.0); GRAN # 4.56 (1.4-6.5); LYMPH # 2.3 (1.2-3.4); MONO # 0.4 (0.1-0.6); MONO % 5.5 % (1.0-6.0)
[2018-04-16 06:14] LABS: ALB/GLOB RATIO 1.1 (1.1-1.8); ALBUMIN 3.1 g/dL (3.0-4.8); CALCIUM 8.6 mg/dL (8.4-10.5)
--- NOTE | 2018-04-16 07:48 | CP.PCM.PN ---
Objective - Vital Signs/Intake and Output Vital Signs (last 24 hours): Temp Pulse Resp BP Pulse Ox 98.6 F 80 23 155/84 H 97 04/16/18 05:16 04/16/18 06:00 04/16/18 06:00 04/16/18 06:00 04/16/18 06:00 Intake and Output: 04/16/18 04/16/18 06:59 18:59 Intake Total 1850 Output Total 400 Balance 1450 - Medications Medications: Current Medications Amlodipine Besylate (Norvasc) 5 mg PO DAILY [facility] Last Admin: 04/15/18 10:49 Dose: 5 mg Aspirin (Aspirin Chewable) 81 mg PO DAILY [facility] Last Admin: 04/15/18 11:14 Dose: 81 mg Atorvastatin Calcium (Lipitor) 40 mg PO DIN [facility] Last Admin: 04/15/18 17:27 Dose: 40 mg Carvedilol (Coreg) 12.5 mg PO BID [facility] Last Admin: 04/15/18 17:27 Dose: 12.5 mg Enoxaparin Sodium (Lovenox) 40 mg SC DAILY [facility]; Protocol Last Admin: 04/15/18 10:46 Dose: 40 mg Lactated Ringer's (Lactated Ringer's) 1,000 mls @ 100 mls/hr IV .Q10H [facility] Last Admin: 04/16/18 02:24 Dose: 100 mls/hr Insulin Detemir (Levemir) 35 unit SC Q12 [facility] Last Admin: 04/15/18 22:17 Dose: 35 units Insulin Human Lispro (Humalog Low) 0 units SC ACHS [facility]; Protocol Last Admin: 04/15/18 22:15 Dose: Not Given Insulin Human Lispro (Humalog) 12 units SC AC [facility] Last Admin: 04/15/18 17:26 Dose: 12 units Losartan Potassium (Cozaar) 100 mg PO DAILY [facility] Last Admin: 04/15/18 10:48 Dose: 100 mg Mycophenolate Mofetil (Cellcept Cap) 500 mg PO BID [facility] Last Admin: 04/15/18 17:27 Dose: 500 mg Pantoprazole Sodium (Protonix Ec Tab) 40 mg PO ACB [facility] Prednisone (Prednisone Tab) 5 mg PO DAILY [facility] Last Admin: 04/15/18 10:49 Dose: 5 mg Tacrolimus (Prograf Cap) 4 mg PO Q12 [facility] Last Admin: 04/15/18 22:23 Dose: 4 mg - Labs Labs: 04/16/18 05:00 04/16/18 05:00 PT 10.9 SECONDS (9.4-12.5) 04/14/18 16:01 INR 0.96 04/14/18 16:01 APTT 29.8 Seconds (25.1-36.5) 04/14/18 16:01
[2018-04-16] MEDS: Insulin Lispro 1 UNITS/0.01 ML SC SCH ×3 (08:08→17:06)
[2018-04-16] MEDS: Pantoprazole 40 mg EC Tab PO SCH (08:08)
[2018-04-16] MEDS: Insulin Lispro (humaLOG) LOW Coverage SC SCH ×4 (08:09→21:38)
[2018-04-16] MEDS: Albuterol-Ipratrop 3 mg / 0.5 (3 ml) UD IH PRN (08:18)
--- NOTE | 2018-04-16 09:07 | CP.PCM.PN ---
<Minesh Stephens - Last Filed: 04/16/18 09:50> Subjective - Date & Time of Evaluation Date of Evaluation: 04/16/18 Time of Evaluation: 07:00 - Subjective Subjective: Patient seen and evaluated bedside. No acute issues overnight. Patient states she is hungry and wants to eat more food. 12 point ROS reviewed and negative except as stated above Objective - Vital Signs/Intake and Output Vital Signs (last 24 hours): Temp Pulse Resp BP Pulse Ox 98.6 F 80 23 155/84 H 97 04/16/18 05:16 04/16/18 06:00 04/16/18 06:00 04/16/18 06:00 04/16/18 06:00 Intake and Output: 04/16/18 04/16/18 06:59 18:59 Intake Total 1850 Output Total 400 Balance 1450 - Medications Medications: Current Medications Albuterol/Ipratropium (Duoneb 3 Mg/0.5 Mg (3 Ml) Ud) 3 ml IH Q2H PRN PRN Reason: Shortness of Breath Last Admin: 04/16/18 08:18 Dose: 3 ml Amlodipine Besylate (Norvasc) 5 mg PO DAILY [facility] Last Admin: 04/15/18 10:49 Dose: 5 mg Aspirin (Aspirin Chewable) 81 mg PO DAILY [facility] Last Admin: 04/15/18 11:14 Dose: 81 mg Atorvastatin Calcium (Lipitor) 40 mg PO DIN [facility] Last Admin: 04/15/18 17:27 Dose: 40 mg Benzonatate (Tessalon Perles) 100 mg PO TID [facility] Carvedilol (Coreg) 12.5 mg PO BID [facility] Last Admin: 04/15/18 17:27 Dose: 12.5 mg Enoxaparin Sodium (Lovenox) 40 mg SC DAILY [facility]; Protocol Last Admin: 04/15/18 10:46 Dose: 40 mg Lactated Ringer's (Lactated Ringer's) 1,000 mls @ 100 mls/hr IV .Q10H [facility] Last Admin: 04/16/18 02:24 Dose: 100 mls/hr Insulin Detemir (Levemir) 50 unit SC HS [facility] Insulin Human Lispro (Humalog Low) 0 units SC [facility]; Protocol Last Admin: 04/16/18 08:09 Dose: Not Given Insulin Human Lispro (Humalog) 16 units SC AC [facility] Losartan Potassium (Cozaar) 100 mg PO DAILY [facility] Last Admin: 04/15/18 10:48 Dose: 100 mg Mycophenolate Mofetil (Cellcept Cap) 500 mg PO BID [facility] Last Admin: 04/15/18 17:27 Dose: 500 mg Pantoprazole Sodium (Protonix Ec Tab) 40 mg PO ACB [facility] Last Admin: 04/16/18 08:08 Dose: 40 mg Prednisone (Prednisone Tab) 5 mg PO DAILY [facility] Last Admin: 04/15/18 10:49 Dose: 5 mg Tacrolimus (Prograf Cap) 4 mg PO Q12 [facility] Last Admin: 04/15/18 22:23 Dose: 4 mg - Labs Labs: 04/16/18 05:00 04/16/18 05:00 PT 10.9 SECONDS (9.4-12.5) 04/14/18 16:01 INR 0.96 04/14/18 16:01 APTT 29.8 Seconds (25.1-36.5) 04/14/18 16:01 - Constitutional Appears: Non-toxic, No Acute Distress - Head Exam Head Exam: ATRAUMATIC, NORMAL INSPECTION, NORMOCEPHALIC - ENT Exam ENT Exam: Mucous Membranes Moist - Respiratory Exam Respiratory Exam: Clear to Ausculation Bilateral, NORMAL BREATHING PATTERN - Cardiovascular Exam Cardiovascular Exam: REGULAR RHYTHM, +S1, +S2 - GI/Abdominal Exam GI & Abdominal Exam: Soft - Neurological Exam Neurological Exam: Alert, Awake, Oriented x3 Assessment and Plan - Assessment and Plan (Free Text) Assessment: Patient is a 47 year old female with a past medical history of right kidney transplant, transient ischemic attack, IDDM, diabetic retinopathy, dyslipidemia, hypertension, asthma who initially presented with complaints of slurred speech found to be in DKA likely 2/2 non compliance. Anion Gap has closed, patient is now on SC Insulin regimen. Plan: Slurred speech r/o CVA vs TIA- resolved -Neuro consulted for recs -aspirin -CT head - neg -MRI brain showing mild chronic microvascular changes -carotid echo shows 20-39% proximal ICA stenosis -echo pending DKA - resolved -gap closed since yesterday -Levemir 50 SC HS -Lispro 16 SC -Cont ISS - low dose as protocol -HgA1C - 12.7 -perioperative educator -Renal diet -Endo consulted for recs, Dr. Cam Hilar and Mediastinam lymph node enlargement -CXR shows mass along R mediastinum -CT chest shows mediastinum calcified lymphadenopathy compatible with old gra nulomatous dx -Recommend outpatient follow up with [facility] [employer] regarding possible EBUS Anemia -Peripheral smear does not show any abnormal cells -low TIBC, normal ferritin level, normal iron level -B12 level normal as well CKD -Nephrology on consult -Cr 1.7 from 1.5 yesterday -I&O History of Asthma -Duonebs PRN History of R kidney transplant -Continue tacrolimus and mycophenolate -F/u nephrology consult History of Hypertension -Continue losartan 100 mg, norvasc 5 mg, coreg 20 mg History of Dyslipidemia -Lipitor 40mg daily GI prophylaxis: protonix DVT Prophylaxis: lovenox <Maria Elena Gerber - Last Filed: 04/16/18 12:07> Objective - Vital Signs/Intake and Output Vital Signs (last 24 hours): Temp Pulse Resp BP Pulse Ox 98.6 F 87 67 H 135/85 85 L 04/16/18 05:16 04/16/18 10:00 04/16/18 09:00 04/16/18 09:00 04/16/18 09:00 Intake and Output: 04/16/18 04/16/18 06:59 18:59 Intake Total 1850 Output Total 400 Balance 1450 - Medications Medications: Current Medications Albuterol/Ipratropium (Duoneb 3 Mg/0.5 Mg (3 Ml) Ud) 3 ml IH Q2H PRN PRN Reason: Shortness of Breath Last Admin: 04/16/18 08:18 Dose: 3 ml Amlodipine Besylate (Norvasc) 5 mg PO DAILY [facility] Last Admin: 04/16/18 10:03 Dose: 5 mg Aspirin (Aspirin Chewable) 81 mg PO DAILY [facility] Last Admin: 04/16/18 10:03 Dose: 81 mg Atorvastatin Calcium (Lipitor) 40 mg PO DIN [facility] Last Admin: 04/15/18 17:27 Dose: 40 mg Benzonatate (Tessalon Perles) 100 mg PO TID [facility] Last Admin: 04/16/18 10:03 Dose: 100 mg Carvedilol (Coreg) 12.5 mg PO BID [facility] Last Admin: 04/16/18 10:03 Dose: 12.5 mg Enoxaparin Sodium (Lovenox) 40 mg SC DAILY [facility]; Protocol Last Admin: 04/16/18 10:03 Dose: 40 mg Lactated Ringer's (Lactated Ringer's) 1,000 mls @ 60 mls/hr IV .[id number] [facility] Insulin Detemir (Levemir) 50 unit SC HS [facility] Insulin Human Lispro (Humalog Low) 0 units SC ACHS [facility]; Protocol Last Admin: 04/16/18 08:09 Dose: Not Given Insulin Human Lispro (Humalog) 16 units SC AC [facility] Losartan Potassium (Cozaar) 100 mg PO DAILY [facility] Last Admin: 04/16/18 10:02 Dose: 100 mg Mycophenolate Mofetil (Cellcept Cap) 500 mg PO BID [facility] Last Admin: 04/16/18 10:03 Dose: 500 mg Pantoprazole Sodium (Protonix Ec Tab) 40 mg PO ACB [facility] Last Admin: 04/16/18 08:08 Dose: 40 mg Prednisone (Prednisone Tab) 5 mg PO DAILY [facility] Last Admin: 04/16/18 10:03 Dose: 5 mg Tacrolimus (Prograf Cap) 4 mg PO Q12 [facility] Last Admin: 04/16/18 10:02 Dose: 4 mg - Labs Labs: 04/16/18 05:00 04/16/18 05:00 PT 10.9 SECONDS (9.4-12.5) 04/14/18 16:01 INR 0.96 04/14/18 16:01 APTT 29.8 Seconds (25.1-36.5) 04/14/18 16:01 Attending/Attestation - Attestation I have personally seen and examined this patient.: Yes I have fully participated in the care of the patient.: Yes I have reviewed all pertinent clinical information, including history, physical exam and plan: Yes Notes (Text): 04/16/18 12:02 Medical record note made by the resident after discussion with my direction and input after the patient was personally seen and examined by me. I have reviewed the chart and agree that the record accurately reflects by personal performance of the history, physical exam, data review, and medical decision-making, in the course for the patient. I have also personally directed the plan of care 47 year old female with a past medical history of right kidney transplant, trans ient ischemic attack, IDDM, diabetic retinopathy, dyslipidemia, hypertension, asthma and non compliance with medication was admitted with slurring of speech, no other focal deficit, found to DKA due to non compliance . DKA is resolved. Blood sugars are running high, now on increasing dose of insulin (Levemir 50 SC HS and Lispro 16 SC ).Endocrine is following. Slurring of speech was like due to DKA, less likely TIA. CT head - neg -MRI brain showing mild chronic microvascular changes -carotid echo shows 20-39% proximal ICA stenosis -echo pending -CXR shows mass along R mediastinum -CT chest shows mediastinum calcified lymphadenopathy compatible with old granulomatous disease, will need out patient follow up. Stage 3 CKD,sp renal transplant, creatinin is stable. Issue of compliance with medication and diet was discussed in detail. Management plan was discussed in detail with patient. Education was provided.
[2018-04-16] MEDS: Enoxaparin 40 mg Syringe SC SCH (10:03)
[2018-04-16] MEDS ORDERED: Lactated Ringer's 1,000 ML IV SCH (11:36)
--- NOTE | 2018-04-16 14:29 | CP.CCUPN ---
<Isma Brennan - Last Filed: 04/16/18 14:26> CCU Subjective - Physician Review Subjective (Free Text): Isma Brennan, PGY1 ICU Progress Note for Dr. Marie Patient was seen and examined at bedside this morning. Patient has no complaints. Denies lightheadedness, dizziness, nausea, vomiting, diarrhea, f ever, chills, cp, sob. No overnight changes. Vital signs are stable. A full 12 point ROS was conducted and unremarkable except as stated above. CCU Objective - Vital Signs / Intake & Output Intake and Output (Last 8hrs): Intake & Output 04/15/18 04/16/18 04/16/18 22:59 06:59 14:59 Intake Total 2620 1850 Output Total 300 400 Balance 2320 1450 Intake: IV 1900 1200 Left Antecubital 1700 Right Antecubital 200 1200 Oral 720 650 Output: Urine 300 400 Urine, Voided 300 400 Other: # Voids Urine, Voided 3 # Bowel Movements 1 - Physical Exam Head: Positive for: Atraumatic, Normocephalic Pupils: Positive for: Other (Right eye opaque - Hx diabetic retinopathy) Mouth: Positive for: Moist Mucous Membranes Neck: Positive for: Normal Range of Motion Respiratory/Chest: Positive for: Clear to Auscultation, Good Air Exchange. Negative for: Respiratory Distress, Accessory Muscle Use, Wheezes, Rales, Retrac ting, Rhonchi, Tachypneic Cardiovascular: Positive for: Regular Rate and Rhythm, Normal S1, S2. Negative for: Murmurs Abdomen: Negative for: Tenderness, Distention, Peritoneal Signs, Rebound Back: Positive for: Normal Inspection Upper Extremity: Positive for: Normal Inspection, Normal ROM. Negative for: Cyanosis, Edema Lower Extremity: Positive for: Normal Inspection, NORMAL PULSES, Normal ROM. Negative for: Edema Neurological: Positive for: GCS=15, Speech Normal, Motor Func Grossly Intact, Normal Sensory Function Skin: Positive for: Warm, Dry, Normal Color. Negative for: Rashes Psychiatric: Positive for: Alert, Oriented x 3, Normal Insight, Normal Concentration - Medications Active Medications: Active Medications Generic Name Dose Route Start Last Admin Trade Name Freq PRN Reason Stop Dose Admin Albuterol/Ipratropium 3 ml 04/16/18 07:53 04/16/18 08:18 Duoneb 3 Mg/0.5 Mg (3 Ml) Ud IH 3 ml Q2H PRN Administration Shortness of Breath Amlodipine Besylate 5 mg 04/15/18 10:00 04/16/18 10:03 Norvasc PO 5 mg DAILY [facility] Administration Aspirin 81 mg 04/15/18 10:45 04/16/18 10:03 Aspirin Chewable PO 81 mg DAILY [facility] Administration Atorvastatin Calcium 40 mg 04/15/18 17:00 04/15/18 17:27 Lipitor PO 40 mg DIN [facility] Administration Benzonatate 100 mg 04/16/18 10:00 04/16/18 10:03 Tessalon Perles PO 100 mg TID [facility] Administration Carvedilol 12.5 mg 04/15/18 10:00 04/16/18 10:03 Coreg PO 12.5 mg BID [facility] Administration Enoxaparin Sodium 40 mg 04/15/18 10:00 04/16/18 10:03 Lovenox SC 40 mg DAILY [facility] Administration Protocol Lactated Ringer's 1,000 mls @ 60 mls/hr 04/16/18 11:36 Lactated Ringer's IV .[id number] [facility] Insulin Detemir 50 unit 04/16/18 22:00 Levemir SC HS [facility] Insulin Human Lispro 0 units 04/15/18 11:30 04/16/18 08:09 Humalog Low SC Not Given ACHS [facility] Protocol Insulin Human Lispro 16 units 04/16/18 07:59 Humalog SC AC [facility] Losartan Potassium 100 mg 04/15/18 10:00 04/16/18 10:02 Cozaar PO 100 mg DAILY [facility] Administration Mycophenolate Mofetil 500 mg 04/14/18 22:30 04/16/18 10:03 Cellcept Cap PO 500 mg BID [facility] Administration Pantoprazole Sodium 40 mg 04/16/18 07:30 04/16/18 08:08 Protonix Ec Tab PO 40 mg ACB [facility] Administration Prednisone 5 mg 04/15/18 10:00 04/16/18 10:03 Prednisone Tab PO 5 mg DAILY [facility] Administration Tacrolimus 4 mg 04/14/18 22:30 04/16/18 10:02 Prograf Cap PO 4 mg Q12 [facility] Administration - Patient Studies Lab Studies: Microbiology Studies 04/14/18 22:55 MRSA Culture (Admit) - Final Nose MRSA DETECTED 04/14/18 23:28 Urine Culture - Preliminary Urine,Clean Catch Gram Negative Keevn Lab Studies 04/16/18 04/16/18 04/16/18 Range/Units 08:30 07:30 05:00 WBC (4.5-11.0) 10^3/uL RBC (3.5-6.1) 10^6/uL Hgb (12.0-16.0) g/dL Hct (36.0-48.0) % MCV (80.0-105.0) fl MCH (25.0-35.0) pg MCHC (31.0-37.0) g/dl RDW (11.5-14.5) % Plt Count (120.0-450.0) 10^3/uL MPV (7.0-11.0) fl Gran % (50.0-68.0) % Lymph % (Auto) (22.0-35.0) % Baldwin % (Auto) (1.0-6.0) % Eos % (Auto) (1.5-5.0) % Baso % (Auto) (0.0-3.0) % Gran # (1.4-6.5) Lymph # (Auto) (1.2-3.4) Baldwin # (Auto) (0.1-0.6) Eos # (Auto) (0.0-0.7) Baso # (Auto) (0.0-2.0) K/mm3 Sodium (132-148) mmol/L Potassium (3.6-5.0) mmol/L Chloride (98-107) mmol/L Carbon Dioxide (21-33) mmol/L Anion Gap (10-20) BUN (7-21) mg/dL Creatinine (0.7-1.2) mg/dl Est GFR ( Amer) Est GFR (Non-Af Amer) POC Glucose (mg/dL) 323 H (65-110) mg/dL Random Glucose (70-110) mg/dL Calcium (8.4-10.5) mg/dL Total Bilirubin (0.2-1.3) mg/dL AST (14-36) U/L ALT (7-56) U/L Alkaline Phosphatase (38-126) U/L Total Protein (5.8-8.3) g/dL Albumin (3.0-4.8) g/dL Globulin gm/dL Albumin/Globulin Ratio (1.1-1.8) TSH 3rd Generation 2.50 (0.46-4.68) mIU/mL Cortisol AM Sample 1.7 L (4.46-22.7) ug/dL 04/16/18 04/16/18 04/15/18 Range/Units 05:00 05:00 22:00 WBC 7.4 D (4.5-11.0) 10^3/uL RBC 3.42 L (3.5-6.1) 10^6/uL Hgb 9.2 L (12.0-16.0) g/dL Hct 28.2 L (36.0-48.0) % MCV 82.5 D (80.0-105.0) fl MCH 26.9 (25.0-35.0) pg MCHC 32.6 (31.0-37.0) g/dl RDW 15.8 H (11.5-14.5) % Plt Count 213 (120.0-450.0) 10^3/uL MPV 11.5 H (7.0-11.0) fl Gran % 61.3 (50.0-68.0) % Lymph % (Auto) 31.0 (22.0-35.0) % Baldwin % (Auto) 5.5 (1.0-6.0) % Eos % (Auto) 1.9 (1.5-5.0) % Baso % (Auto) 0.3 (0.0-3.0) % Gran # 4.56 (1.4-6.5) Lymph # (Auto) 2.3 (1.2-3.4) Baldwin # (Auto) 0.4 (0.1-0.6) Eos # (Auto) 0.1 (0.0-0.7) Baso # (Auto) 0.02 (0.0-2.0) K/mm3 Sodium 138 (132-148) mmol/L Potassium 4.0 (3.6-5.0) mmol/L Chloride 108 H (98-107) mmol/L Carbon Dioxide 22 (21-33) mmol/L Anion Gap 11 (10-20) BUN 19 (7-21) mg/dL Creatinine 1.7 H (0.7-1.2) mg/dl Est GFR ( Amer) 39 Est GFR (Non-Af Amer) 32 POC Glucose (mg/dL) 309 H (65-110) mg/dL Random Glucose 363 H* D (70-110) mg/dL Calcium 8.6 (8.4-10.5) mg/dL Total Bilirubin 0.2 (0.2-1.3) mg/dL AST 15 (14-36) U/L ALT 17 (7-56) U/L Alkaline Phosphatase 101 (38-126) U/L Total Protein 5.9 (5.8-8.3) g/dL Albumin 3.1 (3.0-4.8) g/dL Globulin 2.8 gm/dL Albumin/Globulin Ratio 1.1 (1.1-1.8) TSH 3rd Generation (0.46-4.68) mIU/mL Cortisol AM Sample (4.46-22.7) ug/dL 04/15/18 04/15/18 Range/Units 17:20 11:29 WBC (4.5-11.0) 10^3/uL RBC (3.5-6.1) 10^6/uL Hgb (12.0-16.0) g/dL Hct (36.0-48.0) % MCV (80.0-105.0) fl MCH (25.0-35.0) pg MCHC (31.0-37.0) g/dl RDW (11.5-14.5) % Plt Count (120.0-450.0) 10^3/uL MPV (7.0-11.0) fl Gran % (50.0-68.0) % Lymph % (Auto) (22.0-35.0) % Baldwin % (Auto) (1.0-6.0) % Eos % (Auto) (1.5-5.0) % Baso % (Auto) (0.0-3.0) % Gran # (1.4-6.5) Lymph # (Auto) (1.2-3.4) Baldwin # (Auto) (0.1-0.6) Eos # (Auto) (0.0-0.7) Baso # (Auto) (0.0-2.0) K/mm3 Sodium (132-148) mmol/L Potassium (3.6-5.0) mmol/L Chloride (98-107) mmol/L Carbon Dioxide (21-33) mmol/L Anion Gap (10-20) BUN (7-21) mg/dL Creatinine (0.7-1.2) mg/dl Est GFR ( Amer) Est GFR (Non-Af Amer) POC Glucose (mg/dL) 318 H 75 (65-110) mg/dL Random Glucose (70-110) mg/dL Calcium (8.4-10.5) mg/dL Total Bilirubin (0.2-1.3) mg/dL AST (14-36) U/L ALT (7-56) U/L Alkaline Phosphatase (38-126) U/L Total Protein (5.8-8.3) g/dL Albumin (3.0-4.8) g/dL Globulin gm/dL Albumin/Globulin Ratio (1.1-1.8) TSH 3rd Generation (0.46-4.68) mIU/mL Cortisol AM Sample (4.46-22.7) ug/dL Laboratory Results - last 24 hr 04/15/18 04/15/18 04/15/18 11:29 17:20 22:00 WBC RBC Hgb Hct MCV MCH MCHC RDW Plt Count MPV Gran % Lymph % (Auto) Baldwin % (Auto) Eos % (Auto) Baso % (Auto) Gran # Lymph # (Auto) Baldwin # (Auto) Eos # (Auto) Baso # (Auto) Sodium Potassium Chloride Carbon Dioxide Anion Gap BUN Creatinine Est GFR ( Amer) Est GFR (Non-Af Amer) POC Glucose (mg/dL) 75 318 H 309 H Random Glucose Calcium Total Bilirubin AST ALT Alkaline Phosphatase Total Protein Albumin Globulin Albumin/Globulin Ratio TSH 3rd Generation Cortisol AM Sample 04/16/18 04/16/18 04/16/18 05:00 05:00 05:00 WBC 7.4 D RBC 3.42 L Hgb 9.2 L Hct 28.2 L MCV 82.5 D MCH 26.9 MCHC 32.6 RDW 15.8 H Plt Count 213 MPV 11.5 H Gran % 61.3 Lymph % (Auto) 31.0 Baldwin % (Auto) 5.5 Eos % (Auto) 1.9 Baso % (Auto) 0.3 Gran # 4.56 Lymph # (Auto) 2.3 Baldwin # (Auto) 0.4 Eos # (Auto) 0.1 Baso # (Auto) 0.02 Sodium 138 Potassium 4.0 Chloride 108 H Carbon Dioxide 22 Anion Gap 11 BUN 19 Creatinine 1.7 H Est GFR ( Amer) 39 Est GFR (Non-Af Amer) 32 POC Glucose (mg/dL) Random Glucose 363 H* D Calcium 8.6 Total Bilirubin 0.2 AST 15 ALT 17 Alkaline Phosphatase 101 Total Protein 5.9 Albumin 3.1 Globulin 2.8 Albumin/Globulin Ratio 1.1 TSH 3rd Generation Cortisol AM Sample 1.7 L 04/16/18 04/16/18 07:30 08:30 WBC RBC Hgb Hct MCV MCH MCHC RDW Plt Count MPV Gran % Lymph % (Auto) Baldwin % (Auto) Eos % (Auto) Baso % (Auto) Gran # Lymph # (Auto) Baldwin # (Auto) Eos # (Auto) Baso # (Auto) Sodium Potassium Chloride Carbon Dioxide Anion Gap BUN Creatinine Est GFR ( Amer) Est GFR (Non-Af Amer) POC Glucose (mg/dL) 323 H Random Glucose Calcium Total Bilirubin AST ALT Alkaline Phosphatase Total Protein Albumin Globulin Albumin/Globulin Ratio TSH 3rd Generation 2.50 Cortisol AM Sample Fingerstick Blood Sugar Results: 323 Review of Systems - Review of Systems All systems: reviewed and no additional remarkable complaints except (as per HPI) Critical Care Progress Note - Extremities/Vascular Does the Patient have a Central Venous Catheter?: No Does the Patient need a Central Venous Catheter?: No Does the Patient have a García Catheter?: No Does the Patient need a García Catheter?: No - Prophylaxis GI Prophylaxis GI: PPI - Prophylaxis DVT Prophylaxis DVT: Heparin SQ - Nutrition Nutrition: Nutrition Category Date Time Status Renal Diet [DIET] Diets 04/14/18 Dinner Ordered Assessment/Plan - Assessment and Plan (Free Text) Assessment: Patient is a 47 y/o F with PMHx of TIA, DM, diabetic retinopathy, and R-renal transplant who presented to the ED for slurred speech. Patient was found to be in DKA. Neurology was also consulted for possible stroke. She was admitted to the ICU for management of DKA. Plan: Neuro: - Patient is AAOx3 - No more episodes of slurred speech - Stroke workup has been negative: MRI brain showed no infarct or hemorrhage - Carotid US: no significant stenosis - CT Head: negative - Hx of TIA - Neurology was consulted and has signed off Cardio: - Patient is normotensive - Maintain MAP > 65 Pulm: - CXR was negative - Maintain SaO2 > 92% GI: - Renal diet - GI ppx with protonix Renal: - TRINH; BUN/Cr is 19/1.7 - replete lytes as needed - Hx of kidney transplant - Nephro consulted. Recs appreciated Endo: - Anion gap is now closed; 8 - Patient has been off insulin drip - Blood glucose has improved since admission - Diabetic education - Endo recs appreciated - Hgb A1c is 12.7 Heme: - H/H is stable - DVT ppx with heparin sc Dispo: Patient is hemodynamically stable. DKA is resolved. Stroke has been ruled out. Transfer patient to remote telemetry. Case was discussed and reviewed with Attending Physician, Dr. Marie <Melissa Marie - Last Filed: 04/16/18 14:56> CCU Objective - Vital Signs / Intake & Output Vital Signs (Last 4 hours): Vital Signs Pulse 04/16/18 14:00 82 Intake and Output (Last 8hrs): Intake & Output 04/15/18 04/16/18 04/16/18 22:59 06:59 14:59 Intake Total 2620 1850 Output Total 300 400 Balance 2320 1450 Intake: IV 1900 1200 Left Antecubital 1700 Right Antecubital 200 1200 Oral 720 650 Output: Urine 300 400 Urine, Voided 300 400 Other: # Voids Urine, Voided 3 # Bowel Movements 1 - Medications Active Medications: Active Medications Generic Name Dose Route Start Last Admin Trade Name Freq PRN Reason Stop Dose Admin Albuterol/Ipratropium 3 ml 04/16/18 07:53 04/16/18 08:18 Duoneb 3 Mg/0.5 Mg (3 Ml) Ud IH 3 ml Q2H PRN Administration Shortness of Breath Amlodipine Besylate 5 mg 04/15/18 10:00 04/16/18 10:03 Norvasc PO 5 mg DAILY [facility] Administration Aspirin 81 mg 04/15/18 10:45 04/16/18 10:03 Aspirin Chewable PO 81 mg DAILY [facility] Administration Atorvastatin Calcium 40 mg 04/15/18 17:00 11/30/18 17:27 Lipitor PO 40 mg DIN [facility] Administration Benzonatate 100 mg 04/16/18 10:00 04/16/18 10:03 Tessalon Perles PO 100 mg TID [facility] Administration Carvedilol 12.5 mg 04/15/18 10:00 04/16/18 10:03 Coreg PO 12.5 mg BID [facility] Administration Enoxaparin Sodium 40 mg 04/15/18 10:00 04/16/18 10:03 Lovenox SC 40 mg DAILY [facility] Administration Protocol Lactated Ringer's 1,000 mls @ 60 mls/hr 04/16/18 11:36 Lactated Ringer's IV .[id number] [facility] Insulin Detemir 50 unit 04/16/18 22:00 Levemir SC HS [facility] Insulin Human Lispro 0 units 04/15/18 11:30 04/16/18 14:43 Humalog Low SC Not Given ACHS [facility] Protocol Insulin Human Lispro 16 units 04/16/18 07:59 Humalog SC AC [facility] Losartan Potassium 100 mg 04/15/18 10:00 04/16/18 10:02 Cozaar PO 100 mg DAILY [facility] Administration Mycophenolate Mofetil 500 mg 04/14/18 22:30 04/16/18 10:03 Cellcept Cap PO 500 mg BID [facility] Administration Pantoprazole Sodium 40 mg 04/16/18 07:30 04/16/18 08:08 Protonix Ec Tab PO 40 mg ACB [facility] Administration Prednisone 5 mg 04/15/18 10:00 04/16/18 10:03 Prednisone Tab PO 5 mg DAILY [facility] Administration Tacrolimus 4 mg 04/14/18 22:30 04/16/18 10:02 Prograf Cap PO 4 mg Q12 [facility] Administration - Patient Studies Lab Studies: Microbiology Studies 04/14/18 22:55 MRSA Culture (Admit) - Final Nose MRSA DETECTED 04/14/18 23:28 Urine Culture - Preliminary Urine,Clean Catch Gram Negative Keven Lab Studies 04/16/18 04/16/18 04/16/18 Range/Units 08:30 07:30 05:00 WBC (4.5-11.0) 10^3/uL RBC (3.5-6.1) 10^6/uL Hgb (12.0-16.0) g/dL Hct (36.0-48.0) % MCV (80.0-105.0) fl MCH (25.0-35.0) pg MCHC (31.0-37.0) g/dl RDW (11.5-14.5) % Plt Count (120.0-450.0) 10^3/uL MPV (7.0-11.0) fl Gran % (50.0-68.0) % Lymph % (Auto) (22.0-35.0) % Baldwin % (Auto) (1.0-6.0) % Eos % (Auto) (1.5-5.0) % Baso % (Auto) (0.0-3.0) % Gran # (1.4-6.5) Lymph # (Auto) (1.2-3.4) Baldwin # (Auto) (0.1-0.6) Eos # (Auto) (0.0-0.7) Baso # (Auto) (0.0-2.0) K/mm3 Sodium (132-148) mmol/L Potassium (3.6-5.0) mmol/L Chloride (98-107) mmol/L Carbon Dioxide (21-33) mmol/L Anion Gap (10-20) BUN (7-21) mg/dL Creatinine (0.7-1.2) mg/dl Est GFR ( Amer) Est GFR (Non-Af Amer) POC Glucose (mg/dL) 323 H (65-110) mg/dL Random Glucose (70-110) mg/dL Calcium (8.4-10.5) mg/dL Total Bilirubin (0.2-1.3) mg/dL AST (14-36) U/L ALT (7-56) U/L Alkaline Phosphatase (38-126) U/L Total Protein (5.8-8.3) g/dL Albumin (3.0-4.8) g/dL Globulin gm/dL Albumin/Globulin Ratio (1.1-1.8) TSH 3rd Generation 2.50 (0.46-4.68) mIU/mL Cortisol AM Sample 1.7 L (4.46-22.7) ug/dL 04/16/18 04/16/18 04/15/18 Range/Units 05:00 05:00 22:00 WBC 7.4 D (4.5-11.0) 10^3/uL RBC 3.42 L (3.5-6.1) 10^6/uL Hgb 9.2 L (12.0-16.0) g/dL Hct 28.2 L (36.0-48.0) % MCV 82.5 D (80.0-105.0) fl MCH 26.9 (25.0-35.0) pg MCHC 32.6 (31.0-37.0) g/dl RDW 15.8 H (11.5-14.5) % Plt Count 213 (120.0-450.0) 10^3/uL MPV 11.5 H (7.0-11.0) fl Gran % 61.3 (50.0-68.0) % Lymph % (Auto) 31.0 (22.0-35.0) % Baldwin % (Auto) 5.5 (1.0-6.0) % Eos % (Auto) 1.9 (1.5-5.0) % Baso % (Auto) 0.3 (0.0-3.0) % Gran # 4.56 (1.4-6.5) Lymph # (Auto) 2.3 (1.2-3.4) Baldwin # (Auto) 0.4 (0.1-0.6) Eos # (Auto) 0.1 (0.0-0.7) Baso # (Auto) 0.02 (0.0-2.0) K/mm3 Sodium 138 (132-148) mmol/L Potassium 4.0 (3.6-5.0) mmol/L Chloride 108 H (98-107) mmol/L Carbon Dioxide 22 (21-33) mmol/L Anion Gap 11 (10-20) BUN 19 (7-21) mg/dL Creatinine 1.7 H (0.7-1.2) mg/dl Est GFR ( Amer) 39 Est GFR (Non-Af Amer) 32 POC Glucose (mg/dL) 309 H (65-110) mg/dL Random Glucose 363 H* D (70-110) mg/dL Calcium 8.6 (8.4-10.5) mg/dL Total Bilirubin 0.2 (0.2-1.3) mg/dL AST 15 (14-36) U/L ALT 17 (7-56) U/L Alkaline Phosphatase 101 (38-126) U/L Total Protein 5.9 (5.8-8.3) g/dL Albumin 3.1 (3.0-4.8) g/dL Globulin 2.8 gm/dL Albumin/Globulin Ratio 1.1 (1.1-1.8) TSH 3rd Generation (0.46-4.68) mIU/mL Cortisol AM Sample (4.46-22.7) ug/dL 04/15/18 04/15/18 Range/Units 17:20 11:29 WBC (4.5-11.0) 10^3/uL RBC (3.5-6.1) 10^6/uL Hgb (12.0-16.0) g/dL Hct (36.0-48.0) % MCV (80.0-105.0) fl MCH (25.0-35.0) pg MCHC (31.0-37.0) g/dl RDW (11.5-14.5) % Plt Count (120.0-450.0) 10^3/uL MPV (7.0-11.0) fl Gran % (50.0-68.0) % Lymph % (Auto) (22.0-35.0) % Baldwin % (Auto) (1.0-6.0) % Eos % (Auto) (1.5-5.0) % Baso % (Auto) (0.0-3.0) % Gran # (1.4-6.5) Lymph # (Auto) (1.2-3.4) Baldwin # (Auto) (0.1-0.6) Eos # (Auto) (0.0-0.7) Baso # (Auto) (0.0-2.0) K/mm3 Sodium (132-148) mmol/L Potassium (3.6-5.0) mmol/L Chloride (98-107) mmol/L Carbon Dioxide (21-33) mmol/L Anion Gap (10-20) BUN (7-21) mg/dL Creatinine (0.7-1.2) mg/dl Est GFR ( Amer) Est GFR (Non-Af Amer) POC Glucose (mg/dL) 318 H 75 (65-110) mg/dL Random Glucose (70-110) mg/dL Calcium (8.4-10.5) mg/dL Total Bilirubin (0.2-1.3) mg/dL AST (14-36) U/L ALT (7-56) U/L Alkaline Phosphatase (38-126) U/L Total Protein (5.8-8.3) g/dL Albumin (3.0-4.8) g/dL Globulin gm/dL Albumin/Globulin Ratio (1.1-1.8) TSH 3rd Generation (0.46-4.68) mIU/mL Cortisol AM Sample (4.46-22.7) ug/dL Laboratory Results - last 24 hr 04/15/18 04/15/18 04/15/18 11:29 17:20 22:00 WBC RBC Hgb Hct MCV MCH MCHC RDW Plt Count MPV Gran % Lymph % (Auto) Baldwin % (Auto) Eos % (Auto) Baso % (Auto) Gran # Lymph # (Auto) Baldwin # (Auto) Eos # (Auto) Baso # (Auto) Sodium Potassium Chloride Carbon Dioxide Anion Gap BUN Creatinine Est GFR ( Amer) Est GFR (Non-Af Amer) POC Glucose (mg/dL) 75 318 H 309 H Random Glucose Calcium Total Bilirubin AST ALT Alkaline Phosphatase Total Protein Albumin Globulin Albumin/Globulin Ratio TSH 3rd Generation Cortisol AM Sample 04/16/18 04/16/18 04/16/18 05:00 05:00 05:00 WBC 7.4 D RBC 3.42 L Hgb 9.2 L Hct 28.2 L MCV 82.5 D MCH 26.9 MCHC 32.6 RDW 15.8 H Plt Count 213 MPV 11.5 H Gran % 61.3 Lymph % (Auto) 31.0 Baldwin % (Auto) 5.5 Eos % (Auto) 1.9 Baso % (Auto) 0.3 Gran # 4.56 Lymph # (Auto) 2.3 Baldwin # (Auto) 0.4 Eos # (Auto) 0.1 Baso # (Auto) 0.02 Sodium 138 Potassium 4.0 Chloride 108 H Carbon Dioxide 22 Anion Gap 11 BUN 19 Creatinine 1.7 H Est GFR ( Amer) 39 Est GFR (Non-Af Amer) 32 POC Glucose (mg/dL) Random Glucose 363 H* D Calcium 8.6 Total Bilirubin 0.2 AST 15 ALT 17 Alkaline Phosphatase 101 Total Protein 5.9 Albumin 3.1 Globulin 2.8 Albumin/Globulin Ratio 1.1 TSH 3rd Generation Cortisol AM Sample 1.7 L 04/16/18 04/16/18 07:30 08:30 WBC RBC Hgb Hct MCV MCH MCHC RDW Plt Count MPV Gran % Lymph % (Auto) Baldwin % (Auto) Eos % (Auto) Baso % (Auto) Gran # Lymph # (Auto) Baldwin # (Auto) Eos # (Auto) Baso # (Auto) Sodium Potassium Chloride Carbon Dioxide Anion Gap BUN Creatinine Est GFR ( Amer) Est GFR (Non-Af Amer) POC Glucose (mg/dL) 323 H Random Glucose Calcium Total Bilirubin AST ALT Alkaline Phosphatase Total Protein Albumin Globulin Albumin/Globulin Ratio TSH 3rd Generation 2.50 Cortisol AM Sample Critical Care Progress Note - Nutrition Nutrition: Nutrition Category Date Time Status Renal Diet [DIET] Diets 04/14/18 Dinner Ordered Addendum Addendum: 04/16/18 14:56 MICU ATTENDING ADDENDUM: Patient seen and examined. Case discussed in round with housestaff. Agree with note above with the following additions/exception: 47 y/o F with PMHx of TIA, DM, diabetic retinopathy, and R-renal transplant managed in ICU for DKA which has now resolved. GAP closed. patient is tolerating PO. Defer to endo for managemet of diabetes. Rest of care above Melissa Marie MD Pulmonary Critical Care and Sleep Medicine
--- NOTE | 2018-04-16 15:20 | PN ---
DATE: 04/16/2018 ENDO FOLLOWUP NOTE LOCATION: CCU 129, room 1. SUBJECTIVE: This is a 47-year-old female with recent uncontrolled type 1 insulin-dependent diabetes presenting here with slurred speech and generalized body weakness and currently has improved clinically and hemodynamically as noted thereof. She is more responsive and articulate at this time with no evidence of any slurred speech at the moment. However, overnight, she developed hyperglycemic accelerations as expected with the improved oral intake, especially with the switch over to solid food as noted. PAST MEDICAL HISTORY: As mentioned above. Her chemistry showed a BUN of 19, sodium 138, potassium 4.0, chloride 108, CO2 of 22, glucose 363 and creatinine 1.7. Her glucose levels have ranged from 309 to 323 mg/dL. ASSESSMENT: This is a 47-year-old female with uncontrolled and decompensated type 1 insulin-dependent diabetes with extremes of glycemic fluctuations and now has developed supervening hyperglycemic accelerations overnight as noted. She also has diabetic microvascular complications of retinopathy, polyneuropathy and nephropathy with a prior renal transplant undertaken, currently on steroid therapy as part of her regimen for the immunosuppression. PLAN OF MANAGEMENT: As her oral intake has improved remarkably overnight, then we will modify once again her basal and bolus insulin regimen to optimize metabolic control. We will increase the Levemir given as basal insulin to 50 units subcutaneously at bedtime daily to start tonight. We will also add and titrate her prandial insulin with Humalog to be given as 16 units subcutaneously three times a day before meals to start at lunchtime today as ordered. We will continue the modified low-dose correction scale using Humalog insulin as given to obviate hypoglycemia and detailed orders have been given. We will obtain serial chemistries and supplement accordingly as needed. We will follow up with you. Marcella Cortez MD
--- NOTE | 2018-04-16 17:16 | CARD ---
APPROVED REPORT Date of service: 04/16/2018 EXAM: Two-dimensional and M-mode echocardiogram with Doppler and color Doppler. INDICATION PERICARDIAL EFFUSION 2D DIMENSIONS IVSd1.1 (0.7-1.1cm)LVDd5.2 (3.9-5.9cm) PWd1.0 (0.7-1.1cm)LVDs2.8 (2.5-4.0cm) FS (%) 45.7 %LVEF (%)76.6 (>50%) M-Mode DIMENSIONS Left Atrium (MM)4.50 (2.5-4.0cm)Aortic Root2.70 (2.2-3.7cm) Aortic Cusp Exc.2.20 (1.5-2.0cm) Aortic Valve AoV Peak Cpnufjrd960.0cm/[place] Peak GR.19mmHg Mitral Valve MV E Bwdaripx717.0cm/sMV A Eiswxyud17.7cm/sE/A ratio1.2 TDI Lateral E' Peak V8.87cm/sMedial E' Peak V7.31cm/sE/Lateral E'13.0 E/Medial E'15.7 Tricuspid Valve TR Peak Ocwvvqol519ku/sRAP [id number] Peak Gr.23mmHg [id number] LEFT VENTRICLE The left ventricle is normal size. There is normal left ventricular wall thickness. The left ventricular function is normal. The left ventricular ejection fraction is within the normal range. There is normal LV segmental wall motion. The left ventricular diastolic function is normal. RIGHT VENTRICLE The right ventricle is normal size. There is normal right ventricular wall thickness. The right ventricular systolic function is normal. ATRIA The left atrium is borderline dilated. The right atrium size is normal. AORTIC VALVE The aortic valve is normal in structure. No aortic regurgitation is present. There is no aortic valvular stenosis. MITRAL VALVE The mitral valve is normal in structure. There is no mitral valve regurgitation noted. There is no mitral valve stenosis. TRICUSPID VALVE The tricuspid valve is normal in structure. There is trace tricuspid regurgitation. PULMONIC VALVE The pulmonary valve is normal in structure. There is trace pulmonic valvular regurgitation. GREAT VESSELS The aortic root is normal in size. The IVC is dilated. PERICARDIAL EFFUSION There is a trace pericardial effusion. <Conclusion> There is normal left ventricular wall thickness. The left ventricular function is normal. The left ventricular ejection fraction is within the normal range. There is normal LV segmental wall motion. The left ventricular diastolic function is normal. There is a trace pericardial effusion. No Tamponade
[2018-04-16] MEDS ORDERED: Insulin Detemir 100 units/ml Vial (Levemir) SC SCH (22:00)
[2018-04-17] MEDS: Albuterol-Ipratrop 3 mg / 0.5 (3 ml) UD IH PRN (03:26)
[2018-04-17 05:47] LABS: BASO # 0.01 K/mm3 (0.0-2.0); BASO % 0.1 % (0.0-3.0); EOS # 0.2 (0.0-0.7); EOS % 2.2 % (1.5-5.0); GRAN # 6.18 (1.4-6.5); GRAN % 63.5 % (50.0-68.0); HEMOGLOBIN 9.8 g/dL (12.0-16.0); LYMPH # 2.7 (1.2-3.4); LYMPH % 28.2 % (22.0-35.0); MEAN CELL VOLUME 81.7 fl (80.0-105.0); MEAN CORPUSCULAR HEMOGLOBIN 26.4 pg (25.0-35.0); MEAN CORPUSCULAR HGB CONC 32.3 g/dl (31.0-37.0); MEAN PLATELET VOLUME 10.9 fl (7.0-11.0); MONO # 0.6 (0.1-0.6); RBC 3.71 10^6/uL (3.5-6.1); RED CELL DISTRIBUTION WIDTH 15.9 % (11.5-14.5); WHITE BLOOD COUNT 9.7 10^3/uL (4.5-11.0)
[2018-04-17 06:13] LABS: ALB/GLOB RATIO 1.1 (1.1-1.8); ALBUMIN 3.6 g/dL (3.0-4.8); CALCIUM 9.3 mg/dL (8.4-10.5)
[2018-04-17 08:05] VITALS: BP 141/85; PULSE 85; RESP 18; TEMP 98; O2SAT 97
[2018-04-17] MEDS: Insulin Lispro (humaLOG) LOW Coverage SC SCH ×2 (08:29→13:05)
[2018-04-17] MEDS: Insulin Lispro 1 UNITS/0.01 ML SC SCH (08:35)
[2018-04-17] MEDS: Pantoprazole 40 mg EC Tab PO SCH (08:35)
[2018-04-17] MEDS ORDERED: Insulin Lispro 1 UNITS/0.01 ML SC SCH (09:06)
[2018-04-17] MEDS ORDERED: Insulin Detemir 100 units/ml Vial (Levemir) SC SCH (09:06)
[2018-04-17] MEDS: Enoxaparin 40 mg Syringe SC SCH (10:49)
--- NOTE | 2018-04-17 12:30 | CP.PCM.DIS ---
<Leonides Mckenzie - Last Filed: 04/17/18 13:41> Provider - Provider Date of Admission: 04/14/18 18:16 Attending physician: Maria Elena Gerber MD Primary care physician: Dr. Borden ([place], [place]) Consults: 04/14/18 18:04 Consult [Physician Consult] Stat Comment: Consulting Provider: Malka Stephen Consulting Physician: Malka Stephen Reason for Consult: s/p renal transplant 04/14/18 21:57 Diabetic Education Referral Routine Comment: Physician Instructions: Reason For Exam: DKA 04/15/18 07:18 Consult [Physician Consult] Routine Comment: Consulting Provider: Marcella Cortez Consulting Physician: Marcella Cortez Reason for Consult: DKA 04/15/18 10:30 Physician Consult Routine Comment: Consulting Provider: Portia Jeffery Consulting Physician: Portia Jeffery Reason for Consult: code stroke protocol 04/14/18, slurred speech 04/15/18 13:22 Case Management Referral Routine Comment: Physician Instructions: Reason For Exam: Cant afford insulin regimen for home Reason for Referral: [employer] Time Spent in preparation of Discharge (in minutes): 40 Hospital Course - Lab Results Lab Results: Micro Results 04/14/18 22:55 Nose MRSA Culture (Admit) - Final MRSA DETECTED 04/14/18 23:28 Urine,Clean Catch Urine Culture - Preliminary Gram Negative Keven Most Recent Lab Values WBC 9.7 10^3/uL (4.5-11.0) D 04/17/18 05:30 RBC 3.71 10^6/uL (3.5-6.1) 04/17/18 05:30 Hgb 9.8 g/dL (12.0-16.0) L 04/17/18 05:30 Hct 30.3 % (36.0-48.0) L 04/17/18 05:30 MCV 81.7 fl (80.0-105.0) 04/17/18 05:30 MCH 26.4 pg (25.0-35.0) 04/17/18 05:30 MCHC 32.3 g/dl (31.0-37.0) 04/17/18 05:30 RDW 15.9 % (11.5-14.5) H 04/17/18 05:30 Plt Count 230 10^3/uL (120.0-450.0) 04/17/18 05:30 MPV 10.9 fl (7.0-11.0) 04/17/18 05:30 Gran % 63.5 % (50.0-68.0) 04/17/18 05:30 Lymph % (Auto) 28.2 % (22.0-35.0) 04/17/18 05:30 [place] % (Auto) 6.0 % (1.0-6.0) 04/17/18 05:30 Eos % (Auto) 2.2 % (1.5-5.0) 04/17/18 05:30 Baso % (Auto) 0.1 % (0.0-3.0) 04/17/18 05:30 Gran # 6.18 (1.4-6.5) 04/17/18 05:30 Lymph # (Auto) 2.7 (1.2-3.4) 04/17/18 05:30 [place] # (Auto) 0.6 (0.1-0.6) 04/17/18 05:30 Eos # (Auto) 0.2 (0.0-0.7) 04/17/18 05:30 Baso # (Auto) 0.01 K/mm3 (0.0-2.0) 04/17/18 05:30 Differential Comment See pathology report 04/14/18 16:01 Retic Count 1.87 % (0.5-1.5) H 04/14/18 22:10 PT 10.9 SECONDS (9.4-12.5) 04/14/18 16:01 INR 0.96 04/14/18 16:01 APTT 29.8 Seconds (25.1-36.5) 04/14/18 16:01 pCO2 33 mm/Hg (35-45) L 04/15/18 01:35 pO2 89 mm/Hg (30-55) H 04/15/18 02:07 HCO3 19.1 mmol/L (21-28) L 04/15/18 01:35 ABG pH 7.37 (7.35-7.45) 04/15/18 01:35 ABG Total CO2 20.1 mmol.L (22-28) L 04/15/18 01:35 ABG O2 Saturation 99.3 % (95-98) H 04/15/18 01:35 ABG O2 Content 12.8 ML/dl (15-23) L 04/15/18 01:35 ABG Base Excess -5.5 mmol/L (-2.0-3.0) L 04/15/18 01:35 ABG Hemoglobin 9.4 g/dL (11.7-17.4) L 04/15/18 01:35 ABG Carboxyhemoglobin 2.2 % (0.5-1.5) H 04/15/18 01:35 POC ABG HHb (Measured) 0.7 % (0-5) 04/15/18 01:35 ABG Methemoglobin 1.2 % (0.0-3.0) 04/15/18 01:35 ABG O2 Capacity 12.9 mL/dl (16-24) L 04/15/18 01:35 VBG pH 7.32 (7.32-7.43) 04/15/18 02:07 VBG pCO2 35.0 (40-60) L 04/15/18 02:07 VBG HCO3 18.0 mmol/l (21-28) L 04/15/18 02:07 VBG Total CO2 19.1 mmol.L (22-28) L 04/15/18 02:07 VBG O2 Sat (Calc) 99.0 % (40-65) H 04/15/18 02:07 VBG Base Excess -7.3 mmol/L (0.0-2.0) L 04/15/18 02:07 VBG Potassium 3.9 mmol/L (3.6-5.2) 04/15/18 02:07 Hgb O2 Saturation 95.9 % (95.0-98.0) 04/15/18 01:35 Sodium 134.0 mmol/L (132-148) 04/15/18 02:07 Chloride 105.0 mmol/L (98-107) 04/15/18 02:07 Glucose 399 mg/dl (65-105) H 04/15/18 02:07 Lactate 2.9 mmol/L (0.7-2.1) H 04/15/18 02:07 FiO2 21.0 % 04/15/18 02:07 Sodium 140 mmol/L (132-148) 04/17/18 05:30 Potassium 3.9 mmol/L (3.6-5.0) 04/17/18 05:30 Chloride 107 mmol/L (98-107) 04/17/18 05:30 Carbon Dioxide 24 mmol/L (21-33) 04/17/18 05:30 Anion Gap 12 (10-20) 04/17/18 05:30 BUN 20 mg/dL (7-21) 04/17/18 05:30 Creatinine 1.7 mg/dl (0.7-1.2) H 04/17/18 05:30 Est GFR ( Amer) 39 04/17/18 05:30 Est GFR (Non-Af Amer) 32 04/17/18 05:30 POC Glucose (mg/dL) 214 mg/dL (65-110) H 04/17/18 07:44 Random Glucose 264 mg/dL (70-110) H 04/17/18 05:30 Hemoglobin A1c 13.0 % (4.2-6.5) H 04/16/18 05:00 Calcium 9.3 mg/dL (8.4-10.5) 04/17/18 05:30 Phosphorus 2.8 mg/dL (2.5-4.5) 04/14/18 19:22 Magnesium 1.9 mg/dL (1.7-2.2) 04/14/18 19:22 Iron 69 ug/dL (45-180) 04/14/18 21:56 TIBC 208 ug/dL (265-497) L 04/14/18 21:56 % Saturation 33 % (20-55) 04/14/18 21:56 Ferritin 464.0 ng/mL 04/14/18 22:10 Total Bilirubin 0.2 mg/dL (0.2-1.3) 04/17/18 05:30 AST 18 U/L (14-36) 04/17/18 05:30 ALT 18 U/L (7-56) 04/17/18 05:30 Alkaline Phosphatase 154 U/L (38-126) H D 04/17/18 05:30 Troponin I < 0.01 ng/mL 04/14/18 22:10 Total Protein 7.0 g/dL (5.8-8.3) 04/17/18 05:30 Albumin 3.6 g/dL (3.0-4.8) 04/17/18 05:30 Globulin 3.4 gm/dL 04/17/18 05:30 Albumin/Globulin Ratio 1.1 (1.1-1.8) 04/17/18 05:30 Triglycerides 228 mg/dL (35-160) H 04/15/18 06:50 Cholesterol 200 mg/dL (130-200) 04/15/18 06:50 LDL Cholesterol Direct 127 mg/dL (0-129) 04/15/18 06:50 HDL Cholesterol 32 mg/dL (29-60) 04/15/18 06:50 Vitamin B12 896 pg/mL (239-931) 04/14/18 22:10 RBC Folate 1001 ng/mL RBC (>280) 04/14/18 22:10 Procalcitonin 0.11 NG/ML (0.19-0.49) L 04/14/18 19:22 TSH 3rd Generation 2.50 mIU/mL (0.46-4.68) 04/16/18 08:30 Cortisol AM Sample 1.7 ug/dL (4.46-22.7) L 04/16/18 05:00 Venous Blood Potassium 3.9 mmol/L (3.6-5.2) 04/15/18 02:07 Urine Color Light yellow (YELLOW) 04/14/18 18: Urine Appearance Clear (CLEAR) 04/14/18 18: Urine pH 6.0 (4.7-8.0) 04/14/18 18: Ur Specific [place] 1.010 (1.005-1.035) 04/14/18 18: Urine Protein 100 mg/dL (<30 mg/dL) H 04/14/18 18: Urine Glucose (UA) >=1000 mg/dL (NEGATIVE) 04/14/18 18: Urine Ketones Negative mg/dL (NEGATIVE) 04/14/18 18: Urine Blood Small (NEGATIVE) H 04/14/18 18: Urine Nitrate Negative (NEGATIVE) 04/14/18 18: Urine Bilirubin Negative (NEGATIVE) 04/14/18 18: Urine Urobilinogen 0.2 E.U./dL (<1 E.U./dL) 04/14/18 18:27 Ur Leukocyte Esterase Trace Yumiko/uL (NEGATIVE) H 04/14/18 18:27 Urine RBC 0 - 2 /hpf (0-2) 04/14/18 18:27 Urine WBC 2 - 5 /hpf (0-6) 04/14/18 18:27 Ur Epithelial Cells None /hpf (0-5) 04/14/18 18:27 Urine Bacteria Trace (NEG) 04/14/18 18:27 Urine HCG, Qual Negative (NEGATIVE) 04/15/18 09:00 B-Hydroxybutyrate 0.21 mM (0.02-0.27) 04/14/18 16:01 Blood Type O POSITIVE 04/15/18 06:50 Blood Type Confirm O POSITIVE 04/15/18 08:00 Antibody Screen Negative 04/15/18 06:50 BBK History Checked No verified bt 04/15/18 06:50 - Hospital Course Hospital Course: Leonides Mckenzie, PGY-1 Discharge Summary for Hospitalist Service 47 year old female with a past medical history of right kidney transplant, transient ischemic attack, IDDM, diabetic retinopathy, dyslipidemia, hypertension, asthma who initially presented with complaints of slurred speech. Dr. Jeffery (Neuro) was consulted. Head CT was negative for acute changes. Carotid US showed no significant stenosis. Echo showed LVEF >70% with trace pericardial effusion. MRI brain was ordered which showed no intracranial hemmorhage but did show mild chronic microvascular changes. For hilar and Mediastinam lymph node enlargement on chest X-ray, CT chest shows mediastinum calcified lymphadenopathy compatible with old granulomatous dx. We recommend outpatient follow up with Customer Services Supervisor regarding possible EBUS. Patient was subsequently found to be in DKA likely 2/2 medication non compliance. Initially on insulin drip in ICU(Dr. Santana and Dr Marie), with subsequent closing of Anion Gap to 8. Patient then placed on SC Insulin regimen. Blood sugars were running high, now on increased dose of insulin (Levemir 55 SC HS and Lispro 18 SC ). Sugars were better controlled once dosages were increased of Levemir and . Endocrine (Dr. Cortez) was consulted. Discharge dosages of more affordable insulin regimens were discussed with Dr. Cortez for appropriate coverage upon discharge in detail. Dr. Stephen (Nephro) was consulted based on patient's renal transplant history. Dr. Stephen restarted her anti-hypertensive meds as well as anti-rejection meds as per home recommendations. Patient was seen and evaluated and found to be hemodynamically stable with resolution of her initial presenting symptoms and complaints. Patient's medications were reviewed in detail with patient and nursing staff. Patient's questions, especially regarding new insulin regimen, was reviewed in detail. Patient will be discharged as she is medically optimized. Patient was educated regarding diet as well. Patient urged to follow up with her personal doctors in upcoming week. Compliance with medications was recommended strongly. Patient was instructed to keep daily blood sugars multiple times a day to keep log for primary care physician. Patient seen, case reviewed and plan approved by Dr. Gerber. Discharge Exam - Additional Findings Additional findings: - Constitutional Appears: Non-toxic, No Acute Distress - Head Exam Head Exam: ATRAUMATIC, NORMAL INSPECTION, NORMOCEPHALIC - ENT Exam ENT Exam: Mucous Membranes Moist - Respiratory Exam Respiratory Exam: Clear to Ausculation Bilateral, NORMAL BREATHING PATTERN - Cardiovascular Exam Cardiovascular Exam: REGULAR RHYTHM, +S1, +S2 - GI/Abdominal Exam GI & Abdominal Exam: Soft - Neurological Exam Neurological Exam: Alert, Awake, Oriented x3 Discharge Plan - Discharge Medications Prescriptions: RX: Aspirin [Aspirin Chewable] 81 mg PO DAILY #30 chew RX: Carvedilol [Coreg] 12.5 mg PO BID #60 tab Insulin Human Isophane (NPH) [Novolin N] 40 unit SC HS #1 vial Insulin NPH Hum/Reg Insulin Hm [Relion Novolin 70-30 Vial] 30 unit SQ DIN #1 vial Insulin NPH Hum/Reg Insulin Hm [Relion Novolin 70-30 Vial] 40 unit SQ BRK #1 vial - Follow Up Plan Condition: GUARDED Disposition: HOME/ ROUTINE Patient education suggested?: Yes Instructions: Diabetic Ketoacidosis (DC) Additional Instructions: Please make outpatient follow up with Customer Services Supervisor (Dr. Hackett regarding possible endobronchial ultrasound. Please measure your blood sugars 3 times a day and keep a log for your primary care physician. Please follow up with your primary doctor and your specialists within one week. PMD: Dr. Borden , Director Of Employee Development: Dr. Stephen , Public Information Specialist: Dr. Bobby Stop taking your previous dosages of insulin. You will be changing your insulin regimen to the following: Novolin 70/30 mix - 40 units with breakfast Novolin 70/30 mix - 30 units with dinner Novolin N - 40 units at bedtime Please continue all other medications as prescribed. Should symptoms worsen, please visit nearest emergency department. <Maria Elena Gerber - Last Filed: 04/17/18 14:42> Provider - Provider Date of Admission: 04/14/18 18:16 Attending physician: Maria Elena Gerber MD Consults: 04/14/18 18:04 Consult [Physician Consult] Stat Comment: Consulting Provider: Malka Stephen Consulting Physician: Malka Stephen Reason for Consult: s/p renal transplant 04/14/18 21:57 Diabetic Education Referral Routine Comment: Physician Instructions: Reason For Exam: DKA 04/15/18 07:18 Consult [Physician Consult] Routine Comment: Consulting Provider: Marcella Cortez Consulting Physician: Marcella Cortez Reason for Consult: DKA 04/15/18 10:30 Physician Consult Routine Comment: Consulting Provider: Portia Jeffery Consulting Physician: Portia Jeffery Reason for Consult: code stroke protocol 04/14/18, slurred speech 04/15/18 13:22 Case Management Referral Routine Comment: Physician Instructions: Reason For Exam: Cant afford insulin regimen for home Reason for Referral: [employer] [facility] Course - Lab Results Lab Results: Micro Results 04/14/18 22:55 Nose MRSA Culture (Admit) - Final MRSA DETECTED 04/14/18 23:28 Urine,Clean Catch Urine Culture - Preliminary Gram Negative Keven Most Recent Lab Values WBC 9.7 10^3/uL (4.5-11.0) D 04/17/18 05:30 RBC 3.71 10^6/uL (3.5-6.1) 04/17/18 05:30 Hgb 9.8 g/dL (12.0-16.0) L 04/17/18 05:30 Hct 30.3 % (36.0-48.0) L 04/17/18 05:30 MCV 81.7 fl (80.0-105.0) 04/17/18 05:30 MCH 26.4 pg (25.0-35.0) 04/17/18 05:30 MCHC 32.3 g/dl (31.0-37.0) 04/17/18 05:30 RDW 15.9 % (11.5-14.5) H 04/17/18 05:30 Plt Count 230 10^3/uL (120.0-450.0) 04/17/18 05:30 MPV 10.9 fl (7.0-11.0) 04/17/18 05:30 Gran % 63.5 % (50.0-68.0) 04/17/18 05:30 Lymph % (Auto) 28.2 % (22.0-35.0) 04/17/18 05:30 [place] % (Auto) 6.0 % (1.0-6.0) 04/17/18 05:30 Eos % (Auto) 2.2 % (1.5-5.0) 04/17/18 05:30 Baso % (Auto) 0.1 % (0.0-3.0) 04/17/18 05:30 Gran # 6.18 (1.4-6.5) 04/17/18 05:30 Lymph # (Auto) 2.7 (1.2-3.4) 04/17/18 05:30 [place] # (Auto) 0.6 (0.1-0.6) 04/17/18 05:30 Eos # (Auto) 0.2 (0.0-0.7) 04/17/18 05:30 Baso # (Auto) 0.01 K/mm3 (0.0-2.0) 04/17/18 05:30 Differential Comment See pathology report 04/14/18 16:01 Retic Count 1.87 % (0.5-1.5) H 04/14/18 22:10 PT 10.9 SECONDS (9.4-12.5) 04/14/18 16:01 INR 0.96 04/14/18 16:01 APTT 29.8 Seconds (25.1-36.5) 04/14/18 16:01 pCO2 33 mm/Hg (35-45) L 04/15/18 01:35 pO2 89 mm/Hg (30-55) H 04/15/18 02:07 HCO3 19.1 mmol/L (21-28) L 04/15/18 01:35 ABG pH 7.37 (7.35-7.45) 04/15/18 01:35 ABG Total CO2 20.1 mmol.L (22-28) L 04/15/18 01:35 ABG O2 Saturation 99.3 % (95-98) H 04/15/18 01:35 ABG O2 Content 12.8 ML/dl (15-23) L 04/15/18 01:35 ABG Base Excess -5.5 mmol/L (-2.0-3.0) L 04/15/18 01:35 ABG Hemoglobin 9.4 g/dL (11.7-17.4) L 04/15/18 01:35 ABG Carboxyhemoglobin 2.2 % (0.5-1.5) H 04/15/18 01:35 POC ABG HHb (Measured) 0.7 % (0-5) 04/15/18 01:35 ABG Methemoglobin 1.2 % (0.0-3.0) 04/15/18 01:35 ABG O2 Capacity 12.9 mL/dl (16-24) L 04/15/18 01:35 VBG pH 7.32 (7.32-7.43) 04/15/18 02:07 VBG pCO2 35.0 (40-60) L 04/15/18 02:07 VBG HCO3 18.0 mmol/l (21-28) L 04/15/18 02:07 VBG Total CO2 19.1 mmol.L (22-28) L 04/15/18 02:07 VBG O2 Sat (Calc) 99.0 % (40-65) H 04/15/18 02:07 VBG Base Excess -7.3 mmol/L (0.0-2.0) L 04/15/18 02:07 VBG Potassium 3.9 mmol/L (3.6-5.2) 04/15/18 02:07 Hgb O2 Saturation 95.9 % (95.0-98.0) 04/15/18 01:35 Sodium 134.0 mmol/L (132-148) 04/15/18 02:07 Chloride 105.0 mmol/L (98-107) 04/15/18 02:07 Glucose 399 mg/dl (65-105) H 04/15/18 02:07 Lactate 2.9 mmol/L (0.7-2.1) H 04/15/18 02:07 FiO2 21.0 % 04/15/18 02:07 Sodium 140 mmol/L (132-148) 04/17/18 05:30 Potassium 3.9 mmol/L (3.6-5.0) 04/17/18 05:30 Chloride 107 mmol/L (98-107) 04/17/18 05:30 Carbon Dioxide 24 mmol/L (21-33) 04/17/18 05:30 Anion Gap 12 (10-20) 04/17/18 05:30 BUN 20 mg/dL (7-21) 04/17/18 05:30 Creatinine 1.7 mg/dl (0.7-1.2) H 04/17/18 05:30 Est GFR ( Amer) 39 04/17/18 05:30 Est GFR (Non-Af Amer) 32 04/17/18 05:30 POC Glucose (mg/dL) 214 mg/dL (65-110) H 04/17/18 07:44 Random Glucose 264 mg/dL (70-110) H 04/17/18 05:30 Hemoglobin A1c 13.0 % (4.2-6.5) H 04/16/18 05:00 Calcium 9.3 mg/dL (8.4-10.5) 04/17/18 05:30 Phosphorus 2.8 mg/dL (2.5-4.5) 04/14/18 19:22 Magnesium 1.9 mg/dL (1.7-2.2) 04/14/18 19:22 Iron 69 ug/dL (45-180) 04/14/18 21:56 TIBC 208 ug/dL (265-497) L 04/14/18 21:56 % Saturation 33 % (20-55) 04/14/18 21:56 Ferritin 464.0 ng/mL 04/14/18 22:10 Total Bilirubin 0.2 mg/dL (0.2-1.3) 04/17/18 05:30 AST 18 U/L (14-36) 04/17/18 05:30 ALT 18 U/L (7-56) 04/17/18 05:30 Alkaline Phosphatase 154 U/L (38-126) H D 04/17/18 05:30 Troponin I < 0.01 ng/mL 04/14/18 22:10 Total Protein 7.0 g/dL (5.8-8.3) 04/17/18 05:30 Albumin 3.6 g/dL (3.0-4.8) 04/17/18 05:30 Globulin 3.4 gm/dL 04/17/18 05:30 Albumin/Globulin Ratio 1.1 (1.1-1.8) 04/17/18 05:30 Triglycerides 228 mg/dL (35-160) H 04/15/18 06:50 Cholesterol 200 mg/dL (130-200) 04/15/18 06:50 LDL Cholesterol Direct 127 mg/dL (0-129) 04/15/18 06:50 HDL Cholesterol 32 mg/dL (29-60) 04/15/18 06:50 Vitamin B12 896 pg/mL (239-931) 04/14/18 22:10 RBC Folate 1001 ng/mL RBC (>280) 04/14/18 22:10 Procalcitonin 0.11 NG/ML (0.19-0.49) L 04/14/18 19:22 TSH 3rd Generation 2.50 mIU/mL (0.46-4.68) 04/16/18 08:30 Cortisol AM Sample 1.7 ug/dL (4.46-22.7) L 04/16/18 05:00 Venous Blood Potassium 3.9 mmol/L (3.6-5.2) 04/15/18 02:07 Urine Color Light yellow (YELLOW) 04/14/18 18: Urine Appearance Clear (CLEAR) 04/14/18 18: Urine pH 6.0 (4.7-8.0) 04/14/18 18: Ur Specific [place] 1.010 (1.005-1.035) 04/14/18 18: Urine Protein 100 mg/dL (<30 mg/dL) H 04/14/18 18: Urine Glucose (UA) >=1000 mg/dL (NEGATIVE) 04/14/18 18: Urine Ketones Negative mg/dL (NEGATIVE) 04/14/18 18: Urine Blood Small (NEGATIVE) H 04/14/18 18: Urine Nitrate Negative (NEGATIVE) 04/14/18 18: Urine Bilirubin Negative (NEGATIVE) 11/29/18 18:27 Urine Urobilinogen 0.2 E.U./dL (<1 E.U./dL) 04/14/18 18:27 Ur Leukocyte Esterase Trace Yumiko/uL (NEGATIVE) H 04/14/18 18:27 Urine RBC 0 - 2 /hpf (0-2) 04/14/18 18:27 Urine WBC 2 - 5 /hpf (0-6) 04/14/18 18:27 Ur Epithelial Cells None /hpf (0-5) 04/14/18 18:27 Urine Bacteria Trace (NEG) 04/14/18 18:27 Urine HCG, Qual Negative (NEGATIVE) 04/15/18 09:00 B-Hydroxybutyrate 0.21 mM (0.02-0.27) 04/14/18 16:01 Blood Type O POSITIVE 04/15/18 06:50 Blood Type Confirm O POSITIVE 04/15/18 08:00 Antibody Screen Negative 04/15/18 06:50 BBK History Checked No verified bt 04/15/18 06:50 Attending/Attestation - Attestation I have personally seen and examined this patient.: Yes I have fully participated in the care of the patient.: Yes I have reviewed all pertinent clinical information, including history, physical exam and plan: Yes Notes (Text): 04/17/18 14:39 Medical record note made by the resident after discussion with my direction and input after the patient was personally seen and examined by me. I have reviewed the chart and agree that the record accurately reflects by personal performance of the history, physical exam, data review, and medical decision-making, in the course for the patient. I have also personally directed the plan of care 47 year old female with a past medical history of right kidney transplant, transient ischemic attack, IDDM, diabetic retinopathy, dyslipidemia, hypertension, asthma and non compliance with medication was admitted with slurring of speech, no other focal deficit, found to DKA due to non compliance . DKA is resolved.Patient was seen in consultation with endocrine.Her medications were adjusted. Issue of compliance with medication and diet was discussed in detail with her. She has been advised to check her blood sugars 3 times a day and keep record for her GENETICS TEACHER and supply chain logistics manager. Slurring of speech was like due to DKA, less likely TIA. CT head - neg -MRI brain showing mild chronic microvascular changes -carotid echo shows 20-39% proximal ICA stenosis pending -CXR shows mass along R mediastinum -CT chest shows mediastinum calcified lymphadenopathy compatible with old granulomatous disease, will need out patient follow up. Stage 3 CKD,sp renal transplant, creatinin is stable at base line. Issue of compliance with medication and diet was discussed in detail. Patient will follow up with PCP , Endocrinology , Nephrology her Customer Services Supervisor. Management plan was discussed in detail with patient. Education was provided.
--- NOTE | 2018-04-17 15:18 | PN ---
ENDOCRINOLOGY FOLLOWUP NOTE DATE: 04/17/2018 LOCATION: Room 374. SUBJECTIVE: This is a 47-year-old female with recent uncontrolled type 1 insulin-dependent diabetes presenting here with diabetic ketoacidosis and dehydration and is now being followed closely for metabolic management. Her glycemic levels are fluctuating but improved and the glucose levels overnight have ranged from 214 to 259 mg/dL. It was 298 at bedtime last night. Her chemistry showed a BUN of 20, sodium 140, potassium 3.9, chloride 107, CO2 of 24, glucose 264 and creatinine 1.7. So at this time, we will continue the current basal and bolus insulin regimen as modified with Levemir given as 55 units subcutaneous at bedtime daily as ordered. We will continue the Humalog given as 18 units t.i.d. before meals as ordered. We will continue also the low-dose correction scale using Humalog insulin as ordered. However, as discussed with the biomedical engineering professor today, the patient expressed that she cannot afford the newer insulin analogues as given because of the reeder constraints by insurance company and so she requested if he can give her the more affordable insulin preparations as noted. We have the conventional older insulin vials and this was discussed with the resident and so for discharge, we will switch her over to Novolin NPH with 40 units at bedtime daily to start tonight. We will also switch over to a premixed insulin regimen with Novolin 70/30 given as 40 units before breakfast and 30 units before dinner to start today as ordered. We will obtain serial chemistries and supplement accordingly as needed. We will follow. Marcella Cortez MD
--- NOTE | 2018-04-18 09:49 | PN ---
DATE: 04/16/2018 SUBJECTIVE: The patient is seen sitting in chair. She is awake. She is alert. She is comfortable. She reports feeling much better. Her sugars remained high. She denies any chest pain. She denies any headaches. She denies any nausea or vomiting. PHYSICAL EXAMINATION: GENERAL: Young woman sitting in chair in the ICU. VITAL SIGNS: Blood pressure 135/85, heart rate 87, respiratory rate 18 and temperature 98.6. HEENT: Normocephalic, atraumatic, positive pallor. NECK: Supple, no JVD. LUNGS: Bilateral equal air entry, bilateral rhonchi, no rales. CARDIAC: S1 and S2, regular rate and rhythm, no murmur, no rub. ABDOMEN: Obese, distended, soft, nontender, bowel sounds present. EXTREMITIES: 1+ pitting edema of the lower extremities. INTAKE AND OUTPUT: 4470/700 LABORATORY DATA : WBC 7.4, hemoglobin 9.2, hematocrit 28, platelets 213. Sodium 138, potassium 4.0, chloride 108, CO2 of 22, BUN 19, creatinine 1.7, glucose 363, calcium 8.6. Albumin 3.1. Urinalysis; , light yellow, clear, pH 6, specific gravity , protein 100, glucose greater than 1000, blood small. Urine culture gram-negative cayetano. CURRENT MEDICATIONS: Aspirin, CellCept 500 b.i.d., Coreg 12.5 b.i.d., Cozaar 100, DuoNeb, insulin, Ringer lactate at 100, Levemir, Lipitor, Lovenox, amlodipine 5, prednisone 5, Prograf 4 b.i.d., Protonix. ASSESSMENT/PLAN: 1. Diabetic ketoacidosis, much improved. 2. Insulin dependent diabetes mellitus. 3. Living related transplant. 4. Chronic kidney disease stage 3T. 5. Hypertension. 6. Volume overload. PLAN: 1. Decrease Ringer lactate to 50 mL/hour. 2. Lasix 40 mg p.o. daily. 3. Continue insulin coverage. 4. Continue immunosuppression. 5. Monitor labs daily. 6. Endocrinology consultation. Malka Stephen MD [facility] # [phone]
== END 2018-04-17 17:46 | disposition home or self-care (01) | DRG 638 ==
LOC: ED 15:41 → ERH 18:16 → CCU 20:12 → 3RSO 04-16 20:38
PROVIDERS: ADMIT Internal Medicine; ATTEND Internal Medicine
DX: E11.10 Type 2 diabetes mellitus with ketoacidosis without coma (principal); Z94.0 Kidney transplant status; N25.81 Secondary hyperparathyroidism of renal origin; E87.1 Hypo-osmolality and hyponatremia; I12.9 Hypertensive chronic kidney disease with stage 1 through stage 4 chronic kidney disease, or unspecified chronic kidney disease; E11.22 Type 2 diabetes mellitus with diabetic chronic kidney disease; E11.21 Type 2 diabetes mellitus with diabetic nephropathy; N18.3 Chronic kidney disease, stage 3 (moderate); E11.319 Type 2 diabetes mellitus with unspecified diabetic retinopathy without macular edema; H54.61 Unqualified visual loss, right eye, normal vision left eye; D63.1 Anemia in chronic kidney disease; I65.23 Occlusion and stenosis of bilateral carotid arteries; E86.0 Dehydration; E87.6 Hypokalemia; E11.42 Type 2 diabetes mellitus with diabetic polyneuropathy; R47.81 Slurred speech; E87.70 Fluid overload, unspecified; E78.5 Hyperlipidemia, unspecified; J45.909 Unspecified asthma, uncomplicated; E66.9 Obesity, unspecified; Z68.38 Body mass index [BMI] 38.0-38.9, adult; Z79.4 Long term (current) use of insulin; Z91.14 Patient's other noncompliance with medication regimen; Z91.19 Patient's noncompliance with other medical treatment and regimen; Z87.891 Personal history of nicotine dependence; Z86.73 Personal history of transient ischemic attack (TIA), and cerebral infarction without residual deficits; Z91.040 Latex allergy status